=== PATIENT | female | born 1965 | race Caucasian/White ===

== ENCOUNTER → 2017-07-23 | Outpatient (CLI) | payer MEDICARE, OTHER ==
[2017-07-23 12:37] LABS: HCT 39.7 % (34.0-46.0); HGB 13.2 gm/dL (11.4-16.0); MCH 30.5 pg (25.0-35.0); MCHC 33.1 g/dL (31.0-37.0); Mean Platelet Volume 7.4; Platelet Count 231 k/uL (150-450); RBC 4.32 m/uL (3.80-5.40); RDW 13.5 % (11.5-15.5); WBC 10.8 k/uL (3.8-10.6)
[2017-07-23 13:04] LABS: ALT 46 U/L (9-52); AST 35 U/L (14-36); Albumin 4.4 g/dL (3.5-5.0); Alkaline Phosphatase 79 U/L (38-126); Anion Gap 14 mmol/L; Blood Urea Nitrogen 18 mg/dL (7-17); Calcium 10.3 mg/dL (8.4-10.2); Carbon Dioxide 25 mmol/L (22-30); Chloride 98 mmol/L (98-107); Glucose 154 mg/dL (74-99); Potassium 4.6 mmol/L (3.5-5.1); Sodium 137 mmol/L (137-145); Total Bilirubin 0.2 mg/dL (0.2-1.3); Total Protein 7.5 g/dL (6.3-8.2)
[2017-07-24 00:38] LABS: Hemoglobin A1C 8.2 % (4.0-6.0)
[2017-07-24 12:07] LABS: T4/T8 Ratio (CD4:CD8) 1.6 (1.0-3.7)
[2017-07-24 15:15] LABS: HIV-1 RNA Not detected (Not detected); HIV-1 RNA, Quant <40 Copies/mL (<40)
== END | disposition home or self-care (01) ==
LOC: LABWHC1 12:04
PROVIDERS: ATTEND Physician Assistant
DX: E11.9 Type 2 diabetes mellitus without complications (principal); R22.0 Localized swelling, mass and lump, head; F41.9 Anxiety disorder, unspecified; K72.90 Hepatic failure, unspecified without coma; Z21 Asymptomatic human immunodeficiency virus [HIV] infection status
CPT/HCPCS: 36415; 80053; 82140; 82533; 83036; 85027; 86360; 87536

== ENCOUNTER → 2018-05-13 | Outpatient (CLI) | payer MEDICARE, OTHER ==
[2018-05-13 16:01] LABS: Albumin 4.6 g/dL (3.5-5.0); Calcium 10.4 mg/dL (8.4-10.2); Potassium 4.5 mmol/L (3.5-5.1); Total Bilirubin 0.3 mg/dL (0.2-1.3); Total Protein 7.8 g/dL (6.3-8.2)
[2018-05-15 14:56] LABS: HIV-1 RNA Not detected (Not detected); HIV-1 RNA, Quant <40 Copies/mL (<40)
--- NOTE | 2018-05-18 12:08 | MM ---
Reason for exam: screening (asymptomatic). History: Patient is postmenopausal. Family history of breast cancer in mother at age 69 and breast cancer in grandmother at age 70. Physical Findings: A clinical breast exam by your physician is recommended on an annual basis and results should be correlated with mammographic findings. MG 3D Screening Mammo W/Cad Bilateral CC and MLO view(s) were taken. No prior studies available for comparison. The breast tissue is heterogeneously dense. This may lower the sensitivity of mammography. Finding: There are typically benign vascular calcifications in both breasts. ASSESSMENT: Benign, BI-RAD 2 RECOMMENDATION: Routine screening mammogram of both breasts in 1 year.
== END | disposition home or self-care (01) ==
LOC: RADMAMWWP 15:14
PROVIDERS: ATTEND Physician Assistant
DX: Z12.31 Encounter for screening mammogram for malignant neoplasm of breast (principal); G62.9 Polyneuropathy, unspecified; B20 Human immunodeficiency virus [HIV] disease; Z86.19 Personal history of other infectious and parasitic diseases
CPT/HCPCS: 36415; 77063; 77067; 80053; 82140; 82607; 86360; 87536

== ENCOUNTER → 2018-09-30 | Outpatient (CLI) | payer MEDICARE, OTHER ==
[2018-09-30 14:48] LABS: HCT 49.9 % (34.0-46.0); HGB 16.8 gm/dL (11.4-16.0); MCH 31.8 pg (25.0-35.0); MCHC 33.8 g/dL (31.0-37.0); MCV 94.3 fL (80.0-100.0); Mean Platelet Volume 7.1; Platelet Count 208 k/uL (150-450); RBC 5.29 m/uL (3.80-5.40); RDW 13.2 % (11.5-15.5); WBC 10.3 k/uL (3.8-10.6)
[2018-09-30 20:14] LABS: Albumin 5.1 g/dL (3.80-4.90); Albumin/Globulin Ratio 2.43 (1.60-3.17); Anion Gap 11.1 mmol/L (4.00-12.00); Calcium 10.6 mg/dL (8.7-10.3); Carbon Dioxide 29.9 mmol/L (21.6-31.8); Globulin 2.1 g/dL (1.6-3.3); LDL Cholesterol,Calculated 150.8 mg/dL (0.0-131.0); Potassium 4.8 mmol/L (3.5-5.5); Total Bilirubin 0.3 mg/dL (0.2-1.2); Total Protein 7.2 g/dL (6.2-8.2); VLDL Calculation 67.2 mg/dL (5.00-40.00)
[2018-09-30 21:11] LABS: Hemoglobin A1C 8.8 % (4.0-6.0)
[2018-10-01 12:39] LABS: T4/T8 Ratio (CD4:CD8) 2.1 (1.0-3.7)
[2018-10-01 13:27] LABS: HIV-1 RNA Not detected (Not detected); HIV-1 RNA, Quant <40 Copies/mL (<40)
== END | disposition home or self-care (01) ==
LOC: LABWHC1 13:56
PROVIDERS: ATTEND Physician Assistant
DX: E11.9 Type 2 diabetes mellitus without complications (principal); B20 Human immunodeficiency virus [HIV] disease; B19.20 Unspecified viral hepatitis C without hepatic coma
CPT/HCPCS: 36415; 80053; 80061; 82140; 83036; 85027; 86360; 87536

== ENCOUNTER → 2020-06-05 | Outpatient (CLI) | payer MEDICARE, OTHER ==
--- NOTE | 2020-06-05 08:50 | CT ---
EXAMINATION TYPE: CT brain wo con DATE OF EXAM: 06/05/2020 HISTORY: Swelling right temporal region since this summer. Headache, dizziness, double vision, and me geraldine changes. CT DLP: 1054.2 mGycm. Automated Exposure Control for Dose Reduction was Utilized. TECHNIQUE: CT scan of the head is performed without contrast. COMPARISON: None. FINDINGS: There is no acute intracranial hemorrhage or midline shift identified. Ventricles and sul ci within normal limits in size for patient's age. Dennison-white matter differentiation fairly well main tained. The globes are intact and the visualized sinuses are clear. Hyperostosis frontalis is seen. Mastoid air cells show no suspicious opacification bilaterally. No obvious suspicious subcutaneous m ass or fluid collection noted. IMPRESSION: No acute intracranial hemorrhage or midline shift. Fairly unremarkable study.
== END | disposition home or self-care (01) ==
LOC: RADCTMAIN 07:46
PROVIDERS: ATTEND Family Medicine
DX: G52.9 Cranial nerve disorder, unspecified (principal); R51.9 Headache, unspecified
CPT/HCPCS: 70450; 82140

== ENCOUNTER → 2020-12-05 | Outpatient (CLI) | payer MEDICARE, OTHER ==
[2020-12-06 00:40] LABS: HIV 2 AB Non-Reactive (Non-Reactive); HIV AB P24 REACTIVE (Non-Reactive); HIV P24 AG Non-Reactive (Non-Reactive)
[2020-12-06 10:59] LABS: T4/T8 Ratio (CD4:CD8) 1.7 (1.0-3.7)
[2020-12-11 07:45] LABS: HIV1D REACTIVE
[2020-12-11 07:46] LABS: HIV2D NONREAC
== END | disposition home or self-care (01) ==
LOC: LABWHC1 07:00
PROVIDERS: ATTEND Nurse Practitioner Family
DX: B20 Human immunodeficiency virus [HIV] disease (principal)
CPT/HCPCS: 36415; 82140; 86360; 87389; 87390

== ENCOUNTER 2021-10-26 23:17 | Emergency (ER) | payer MEDICARE, OTHER ==
[2021-10-26 23:27] VITALS: BP 135/69; PULSE 103; RESP 20; TEMP 98.1
--- NOTE | 2021-10-26 23:56 | XR ---
EXAMINATION TYPE: XR knee complete LT DATE OF EXAM: 10/26/2021 COMPARISON: NONE HISTORY: Knee pain TECHNIQUE: 3 views FINDINGS: There is narrowing of the medial joint space. There is spurring of the medial femoral and t ibial condyles. Exam limited by overlying artifacts. No sign of joint effusion. Patella is intact. IMPRESSION: Osteoarthritis in the medial joint space. No fracture. Limited exam
== END 2021-10-27 01:08 | disposition left against medical advice (07) ==
LOC: EC 23:17
DX: Z53.21 Procedure and treatment not carried out due to patient leaving prior to being seen by health care provider (principal)
CPT/HCPCS: 99499

== ENCOUNTER 2022-04-18 06:47 | Observation (INO) | payer MEDICARE, OTHER ==
--- NOTE | 2022-04-18 07:07 | ED ---
Chest Pain HPI - General Chief Complaint: Chest Pain Stated Complaint: Chest Pain Time Seen by Provider: 04/18/22 06:48 Source: patient, EMS Mode of arrival: EMS Limitations: no limitations - History of Present Illness Initial Comments: 56-year-old female presents emergency Department with chief complaint chest pain. Patient states started approximately an hour ago. Patient states that it's burning across her chest. Patient did receive aspirin and 3 nitro states did help some of her chest discomfort. Patient denies any prior cardiac stent she states she's had prior cardiac No acute findings. Patient does not that she abuses alcohol, as a history of drug abuse. Patient states she does not have a current primary care physician because of this. Patient states she has mild shortness of breath no abdominal complaints denies any vomiting denies any recent URI symptoms. - Related Data Allergies Allergy/AdvReac Type Severity Reaction Status Date / Time propranolol [From Inderal LA] Allergy Anaphylaxis Verified 10/26/21 23:27 Review of Systems ROS Statement: Those systems with pertinent positive or pertinent negative responses have been documented in the HPI. ROS Other: All systems not noted in ROS Statement are negative. EKG Findings - EKG Comments: EKG Findings:: EKG performed at 6:43 sinus rhythm with first-degree AV block, rate of 96 KS 210 QRS 109 QTC is QTC 366 11/24/2018 there is inverted T-wave in V2, STelevationordepressionnopriorEKG. Past Medical History Past Medical History: Chest Pain / Angina, COPD, Diabetes Mellitus, Hypertension Additional Past Medical History / Comment(s): HEP B, HIV, History of Any Multi-Drug Resistant Organisms: None Reported Past Surgical History: Hernia Repair Past Psychological History: Bipolar Smoking Status: Current every day smoker Past Alcohol Use History: Abuse, Daily Past Drug Use History: Marijuana General Exam Limitations: no limitations General appearance: alert, in no apparent distress Head exam: Present: atraumatic, normocephalic, normal inspection Eye exam: Present: normal appearance, PERRL, EOMI. Absent: scleral icterus, conjunctival injection, periorbital swelling ENT exam: Present: normal exam, normal oropharynx, mucous membranes moist Neck exam: Present: normal inspection. Absent: tenderness, meningismus, lymphadenopathy Respiratory exam: Present: normal lung sounds bilaterally. Absent: respiratory distress, wheezes, rales, rhonchi, stridor Cardiovascular Exam: Present: regular rate, normal rhythm, normal heart sounds. Absent: systolic murmur, diastolic murmur, rubs, gallop, clicks GI/Abdominal exam: Present: soft, normal bowel sounds. Absent: distended, tenderness, guarding, rebound, rigid Course Vital Signs 04/18/22 04/18/22 06:48 07:28 Temperature 98.1 F Pulse Rate 95 92 Respiratory 16 20 Rate Blood Pressure 148/60 156/80 O2 Sat by Pulse 95 93 L Oximetry Chest Pain MDM - [facility] 56-year-old female presented for chest pain. Patient initial workup is negative. Patient did have relief of her chest pain after nitro. 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
[2022-04-18 07:13] LABS: Anisocytosis Slight; Basophils # (A) 0.1 k/uL (0-0.2); Basophils % (A) 1 %; Eosinophils # (A) 0.1 k/uL (0-0.7); Eosinophils % (A) 1 %; HGB 14.9 gm/dL (11.4-16.0); Lymphocytes # (A) 3.2 k/uL (1.0-4.8); Lymphocytes % (A) 27 %; MCH 28.5 pg (25.0-35.0); MCHC 33.1 g/dL (31.0-37.0); MCV 86.2 fL (80.0-100.0); Mean Platelet Volume 7.9; Monocytes # (A) 0.5 k/uL (0-1.0); Monocytes % (A) 5 %; Neutrophils # (A) 7.5 k/uL (1.3-7.7); Neutrophils % (A) 64 %; Platelet Count 234 k/uL (150-450); RBC 5.22 m/uL (3.80-5.40); RDW 16.3 % (11.5-15.5); WBC 11.8 k/uL (3.8-10.6)
[2022-04-18 07:26] LABS: INR 0.9 (<1.2); Partial Thromboplastin Time 23.5 sec (22.0-30.0); Prothrombin Time 10.3 sec (9.0-12.0)
--- NOTE | 2022-04-18 07:34 | XR ---
EXAMINATION TYPE: XR chest 2V DATE OF EXAM: 04/18/2022 COMPARISON: None HISTORY: 56-year-old female with chest pain TECHNIQUE: PA and lateral views FINDINGS: Heart mildly enlarged. Mild hyperinflation. Mild interstitial prominence of the chronic appearance. S ome strandy atelectasis in lower lungs. No consolidation or pleural effusion seen. IMPRESSION: Mild cardiomegaly. Hyperinflation may relate to depth of inspiration or underlying emphysema. Clinica lly correlate. Some strandy lower lung atelectasis. Otherwise, no definite acute process.
[2022-04-18 07:36] LABS: ALT 22 U/L (4-34); AST 27 U/L (14-36); African American GFR (CKD) >90 (>60 ml/min/1.73 sqM); Alcohol <10 mg/dL; Alkaline Phosphatase 68 U/L (38-126); Anion Gap 11 mmol/L; Blood Urea Nitrogen 15 mg/dL (7-17); Calcium 9.1 mg/dL (8.4-10.2); Carbon Dioxide 26 mmol/L (22-30); Chloride 95 mmol/L (98-107); Glucose 170 mg/dL (74-99); Lipase 196 U/L (23-300); Magnesium 1.7 mg/dL (1.6-2.3); Non-African American GFR(CKD) >90 (>60 ml/min/1.73 sqM); Sodium 132 mmol/L (137-145); Total Bilirubin 0.5 mg/dL (0.2-1.3); Total Protein 6.4 g/dL (6.3-8.2)
[2022-04-18 07:56] LABS: Potassium 4.3 mmol/L (3.5-5.1)
[2022-04-18] MEDS ORDERED: NALOXONE 0.4 MG/ML 1 ML VIAL IV PRN (08:16)
[2022-04-18] MEDS ORDERED: NITROGLYCERIN SL TABS 0.4 MG TAB SUBLINGUAL PRN (08:24)
--- NOTE | 2022-04-18 10:23 | P.CRDCN ---
History of Present Illness History of present illness: HISTORY OF PRESENT ILLNESS: This is a 56 year old female with a past medical history significant for COPD, diabetes, hepatitis B, HIV, bipolar disorder, and nicotine dependence. Patient does not follow with a cst. We have been asked to see the patient in co nsultation for chest pain. Patient examined at the bedside. Patient reports she had a headache so she took Imitrex. She states that about 45 minutes after she developed chest pain. She states this has happened two other times when she took Imitrex. She currently denies chest pain or pressure. Denies SOB. Vital signs are stable. * EKG reveals sinus mechanism with incomplete right bundle branch block. * Chest xray mild cardiomegaly. Hyperinflation may relate to the depth of inspiration or underlying emphysema. Some strandy lower lung atelectasis. * Laboratory data: WBC 11.8. Hemoglobin 14.9. Platelet count 234. Sodium 132. Potassium 4.3. BUN 15. Creatinine 0.54. Troponin negative 1. ProBNP 72. Serum alcohol less than 10. * Current home cardiac medications include atorvastatin 20 mg daily, Cardizem 120 mg daily, losartan 25 mg daily REVIEW OF SYSTEMS: At the time of my exam: CONSTITUTIONAL: Denies fever or chills. HEENT: Denies blurred vision, vision changes, or eye pain. Denies hemoptysis CARDIOVASCULAR: Denies chest pain. Denies orthopnea. Denies PND. Denies palpitations RESPIRATORY: Denies shortness of breath. GASTROINTESTINAL: Denies abdominal pain. Denies nausea or vomiting. HEMATOLOGIC: Denies bleeding disorders. GENITOURINARY: Denies any blood in urine. SKIN: Denies pruitis. Denies rash. PHYSICAL EXAM: VITAL SIGNS: Reviewed. GENERAL: Well-developed in no acute distress. HEENT: Head is normocephalic. Pupils are equal, round. Sclerae anicteric. Mucous membranes of the mouth are moist. Neck supple. No JVD or thyromegaly LUNGS: Respirations even and unlabored. Lungs with rhonchi and crackles at the bases HEART: Regular rate and rhythm. S1 and S2 heard. ABDOMEN: Soft. Nondistended. Nontender. EXTREMITIES: Normal range of motion. No clubbing or cyanosis. Peripheral pulses intact. No lower extremity edema NEUROLOGIC: Awake and alert. Oriented x 3. ASSESSMENT: Chest pain, atypical, troponin negative 1 Hypertension Hyperlipidemia Diabetes COPD Hepatitis B HIV Bipolar disorder History of alcohol abuse Nicotine dependence PLAN: Obtain 2-D echo to assess cardiac structure and function Trend troponins Resume home cardiac medications Further recommendations pending patient's course Nurse practitioner note has been reviewed by physician. Signing provider agrees with the documented findings, assessment, and plan of care. Past Medical History Past Medical History: Chest Pain / Angina, COPD, Diabetes Mellitus, Hypertension Additional Past Medical History / Comment(s): HEP B, HIV, History of Any Multi-Drug Resistant Organisms: None Reported Past Surgical History: Hernia Repair Past Psychological History: Bipolar Smoking Status: Current every day smoker Past Alcohol Use History: Abuse, Daily Past Drug Use History: Marijuana Medications and Allergies Home Medications Medication Instructions Recorded Confirmed Type Acamprosate Calcium [Campral] 333 mg PO TID 04/18/22 04/18/22 History Albuterol Sulfate [Albuterol 2 puff PO RT-Q4H PRN 04/18/22 04/18/22 History Sulfate Hfa] Amoxicillin/Potassium Clav 1 tab PO BID 04/18/22 04/18/22 History [Amox-Clav 875-125 mg Tablet] Atorvastatin Calcium 20 mg PO DAILY 04/18/22 04/18/22 History Canagliflozin [Invokana] 100 mg PO DAILY 04/18/22 04/18/22 History Emtricitabine/Tenofov Alafenam 1 tab PO DAILY 04/18/22 04/18/22 History [Descovy 200-25 mg Tablet] Fluticasone/Umeclidin/Vilanter 1 puff INHALATION RT-DAILY 04/18/22 04/18/22 History [Trelegy Ellipta 100-62.5-25] Fremanezumab-Vfrm [Ajovy Syringe] 225 mg SQ Q90D 04/18/22 04/18/22 History Ipratropium-Albuterol Nebulize 3 ml INHALATION RT-TID PRN 04/18/22 04/18/22 History [Duoneb 0.5 mg-3 mg/3 ml Soln] Loratadine [Claritin] 10 mg PO DAILY 04/18/22 04/18/22 History Losartan [Cozaar] 25 mg PO DAILY 04/18/22 04/18/22 History Multivitamins, Thera [Multivitamin 1 tab PO DAILY 04/18/22 04/18/22 History (formulary)] Naproxen Sodium 550 mg PO BID PRN 04/18/22 04/18/22 History Nicotine [Nicotrol] 1 dose INHALATION DIRECTED 04/18/22 04/18/22 History Nystatin 100,000 Unit/gm Powd 1 applic TOPICAL BID 04/18/22 04/18/22 History [Mycostatin Powder] Pantoprazole [Protonix] 40 mg PO DAILY 04/18/22 04/18/22 History Raltegravir Potassium [Isentress] 800 mg PO HS 04/18/22 04/18/22 History SUMAtriptan succinate [Imitrex] 50 - 100 mg PO TID PRN 04/18/22 04/18/22 History Ubrogepant [Ubrelvy] 100 mg PO BID PRN 04/18/22 04/18/22 History busPIRone HCL [Buspar] 30 mg PO BID 04/18/22 04/18/22 History clomiPRAMINE HCL 75 mg PO QAM 04/18/22 04/18/22 History clomiPRAMINE HCL 150 mg PO HS 04/18/22 04/18/22 History dilTIAZem HCL [dilTIAZem HCL 24Hr 120 mg PO DAILY 04/18/22 04/18/22 History ER (CD)] glipiZIDE [Glucotrol] 10 mg PO BID 04/18/22 04/18/22 History lamoTRIgine [lamoTRIgine ER] 300 mg PO HS 04/18/22 04/18/22 History metFORMIN HCL ER [Glucophage XR] 1,000 mg PO DAILY 04/18/22 04/18/22 History methylPREDNISolone Dose Pack See Taper PO DIRECTED 04/18/22 04/18/22 History [Medrol Dose Pack] sitaGLIPtin [Januvia] 100 mg PO DAILY 04/18/22 04/18/22 History tiZANidine [Zanaflex] 2 mg PO BID PRN 04/18/22 04/18/22 History valACYclovir HCL [Valacyclovir] 1,000 mg PO BID 04/18/22 04/18/22 History ziprasidone HCL [Geodon] 80 mg PO BID 04/18/22 04/18/22 History Allergies Allergy/AdvReac Type Severity Reaction Status Date / Time propranolol [From Inderal LA] Allergy Anaphylaxis Verified 04/18/22 09:29 Physical Exam Vitals: Vital Signs Temp Pulse Resp BP Pulse Ox 04/18/22 07:28 92 20 156/80 93 L 04/18/22 06:48 98.1 F 95 16 148/60 95 Intake and Output 04/17/22 04/18/22 04/18/22 22:59 06:59 14:59 Other: Weight 72.575 kg Results 04/18/22 06:53 04/18/22 06:53 Cardiac Enzymes 04/18/22 04/18/22 Range/Units 06:53 06:53 AST 27 (14-36) U/L Troponin I <0.012 (0.000-0.034) ng/mL Coagulation 04/18/22 Range/Units 06:53 PT 10.3 (9.0-12.0) sec APTT 23.5 (22.0-30.0) sec CBC 04/18/22 Range/Units 06:53 WBC 11.8 H (3.8-10.6) k/uL RBC 5.22 (3.80-5.40) m/uL Hgb 14.9 (11.4-16.0) gm/dL Hct 45.0 (34.0-46.0) % Plt Count 234 (150-450) k/uL Comprehensive Metabolic Panel 04/18/22 Range/Units 06:53 Sodium 132 L (137-145) mmol/L Potassium 4.3 (3.5-5.1) mmol/L Chloride 95 L (98-107) mmol/L Carbon Dioxide 26 (22-30) mmol/L BUN 15 (7-17) mg/dL Creatinine 0.54 (0.52-1.04) mg/dL Glucose 170 H (74-99) mg/dL Calcium 9.1 (8.4-10.2) mg/dL AST 27 (14-36) U/L ALT 22 (4-34) U/L Alkaline Phosphatase 68 (38-126) U/L Total Protein 6.4 (6.3-8.2) g/dL Albumin 4.0 (3.5-5.0) g/dL Current Medications Generic Name Dose Route Start Last Admin Trade Name Freq PRN Reason Stop Dose Admin Aspirin 325 mg 04/19/22 09:00 Aspirin 325 Mg Tab PO DAILY JOCELIN Naloxone HCl 0.2 mg 04/18/22 08:16 Naloxone 0.4 Mg/Ml 1 Ml Vial IV Q2M PRN Opioid Reversal Nitroglycerin 0.4 mg 04/18/22 08:24 Nitroglycerin Sl Tabs 0.4 Mg Tab SUBLINGUAL Q5M PRN Chest Pain Intake and Output 04/17/22 04/18/22 04/18/22 22:59 06:59 14:59 Other: Weight 72.575 kg 04/18/22 06:53 04/18/22 06:53
[2022-04-18] MEDS ORDERED: HEPARIN SODIUM 1,000 UN/ML (10ML VL) IV ONE (10:58)
[2022-04-18] MEDS ORDERED: HEPARIN SODIUM 1,000 UN/ML (10ML VL) IV PRN (10:58)
[2022-04-18] MEDS: HEPARIN SOD,PORK IN 0.45% NACL 25,000 UNIT in 0.45% NACL 1 250ML.BAG IV SCH ×2 (11:14→13:27)
[2022-04-18 11:53] LABS: Anisocytosis Slight; Basophils % (A) 0 %; Eosinophils # (A) 0.2 k/uL (0-0.7); Eosinophils % (A) 2 %; HCT 45.2 % (34.0-46.0); HGB 14.7 gm/dL (11.4-16.0); Hypochromasia Moderate; Lymphocytes # (A) 3.2 k/uL (1.0-4.8); Lymphocytes % (A) 29 %; MCH 28.9 pg (25.0-35.0); MCHC 32.5 g/dL (31.0-37.0); MCV 89.1 fL (80.0-100.0); Mean Platelet Volume 8.3; Monocytes # (A) 0.4 k/uL (0-1.0); Monocytes % (A) 4 %; Neutrophils # (A) 6.7 k/uL (1.3-7.7); Neutrophils % (A) 61 %; Platelet Count 216 k/uL (150-450); RBC 5.07 m/uL (3.80-5.40); RDW 16.7 % (11.5-15.5)
[2022-04-18 12:14] LABS: Prothrombin Time 11.3 sec (9.0-12.0)
[2022-04-18 12:23] LABS: Partial Thromboplastin Time 105.8 sec (22.0-30.0)
[2022-04-18] MEDS ORDERED: IPRATROPIUM-ALBUTEROL 3 ML NEB INHALATION PRN (16:38)
--- NOTE | 2022-04-18 17:20 | P.HPIM ---
History of Present Illness H&P Date: 04/18/22 Patient is a 56-year-old female with PMH of COPD, diabetes mellitus, hypertension, hepatitis B, HIV, bipolar disorder, migraines that presents the ED for chest pain. Patient reports chest pain that started early this morning. Patient was awake when the chest pain started. She had just taken Imitrex for migraine attack. He reports her pain to be midsternal radiating to both of her arms and jaw. She describes the chest pain to be burning in nature. Her symptoms were alleviated with administration of nitroglycerin. There is aggravating factors. She reports a history of smoking 1 pack of cigarettes daily. She denies any current illicit drug use. She reports social drinking. Her symptoms were concerning which prompted her to come to the ED. She denies any lower extremity edema, nausea or vomiting, fever or chills, diaphoresis, shortness of breath, palpitations, changes in urination or bowel habits. No changes in appetite or weight. She denies any dizziness, numbness/weakness/t ingling of the extremities. In the she is requiring 3 L NC to maintain oxygen saturation greater than 92%. Vital signs were otherwise stable with pulse in the 90s and SBP as high as 156. Initial troponin was less than 0.012 followed by 0.079, 0.083. EKG showed sinus rhythm with incomplete right bundle branch block. CBC showed leukocytosis of 11.8. CMP showed sodium 132, chloride of 95, glucose 170. Serum alcohol negative. BNP 72. CXR showed cardiometaly, emphysema and atelectasis. Patient is admitted for chest pain, rule out acute coronary syndrome with Cardiology on consultation. General: non toxic, no distress, appears at stated age Derm: warm, dry Head: atraumatic, normocephalic, symmetric Eyes: EOMI, no lid lag, anicteric sclera Mouth: no lip lesion, mucus membranes moist Cardiovascular: S1S2 reg, no murmur, positive posterior tibial pulse bilateral Lungs: CTA bilateral, no rhonchi, no rales , no accessory muscle use Abdominal: soft, nontender to palpation, no guarding, no appreciable organomegaly Ext: no gross muscle atrophy, no edema, no contractures Neuro: CN II-XI grossly intact, no focal neuro deficits Psych: Alert, oriented, appropriate affect #Non-ST elevation HI Troponins uptrending. Patient started on heparin drip. Continue aspirin and Lipitor. Echocardiogram ordered. Possible cardiac cath tomorrow. Cardiology on board. #Hypochloremic hyponatremia Likely due to dehydration. Patient encouraged hydration by mouth. #Diabetes mellitus with hyperglycemia Low-dose insulin sliding scale along with Accu-Cheks before meals at bedtime and hypoglycemic precautions. #COPD, stable DuoNeb as needed for shortness of breath and wheezing. #Hypertension Restart Losartan and Cardizem. Monitor vitals, adjust medication if necessary. #Hepatitis B #HIV Restart raltegravir, Descovy, #Bipolar disorder Restart Latuda and Lamictal. DVT prophylaxis: [Heparin drip] Discussed with: [Patient] Anticipated discharge: [1-2 days] Anticipated discharge place: [Home] A total of [35] minutes was spent on the care of this complex patient more than 50% of the time was spent in counseling and care coordination. Patient names her sister decision maker if she can't make decisions for soft. Patient would like to be full code. Past Medical History Past Medical History: Chest Pain / Angina, COPD, Diabetes Mellitus, Hypertension Additional Past Medical History / Comment(s): HEP B, HIV, History of Any Multi-Drug Resistant Organisms: None Reported Past Surgical History: Hernia Repair Past Psychological History: Bipolar Smoking Status: Current every day smoker Past Alcohol Use History: Abuse, Daily Past Drug Use History: Marijuana Medications and Allergies Home Medications Medication Instructions Recorded Confirmed Type Acamprosate Calcium [Campral] 333 mg PO TID 04/18/22 04/18/22 History Albuterol Sulfate [Albuterol 2 puff PO RT-Q4H PRN 04/18/22 04/18/22 History Sulfate Hfa] Amoxicillin/Potassium Clav 1 tab PO BID 04/18/22 04/18/22 History [Amox-Clav 875-125 mg Tablet] Atorvastatin Calcium 20 mg PO DAILY 04/18/22 04/18/22 History Canagliflozin [Invokana] 100 mg PO DAILY 04/18/22 04/18/22 History Emtricitabine/Tenofov Alafenam 1 tab PO DAILY 04/18/22 04/18/22 History [Descovy 200-25 mg Tablet] Fluticasone/Umeclidin/Vilanter 1 puff INHALATION RT-DAILY 04/18/22 04/18/22 History [Trelegy Ellipta 100-62.5-25] Fremanezumab-Vfrm [Ajovy Syringe] 225 mg SQ Q90D 04/18/22 04/18/22 History Ipratropium-Albuterol Nebulize 3 ml INHALATION RT-TID PRN 04/18/22 04/18/22 History [Duoneb 0.5 mg-3 mg/3 ml Soln] Loratadine [Claritin] 10 mg PO DAILY 04/18/22 04/18/22 History Losartan [Cozaar] 25 mg PO DAILY 04/18/22 04/18/22 History Multivitamins, Thera [Multivitamin 1 tab PO DAILY 04/18/22 04/18/22 History (formulary)] Naproxen Sodium 550 mg PO BID PRN 04/18/22 04/18/22 History Nicotine [Nicotrol] 1 dose INHALATION DIRECTED 04/18/22 04/18/22 History Nystatin 100,000 Unit/gm Powd 1 applic TOPICAL BID 04/18/22 04/18/22 History [Mycostatin Powder] Pantoprazole [Protonix] 40 mg PO DAILY 04/18/22 04/18/22 History Raltegravir Potassium [Isentress] 800 mg PO HS 04/18/22 04/18/22 History SUMAtriptan succinate [Imitrex] 50 - 100 mg PO TID PRN 04/18/22 04/18/22 History Ubrogepant [Ubrelvy] 100 mg PO BID PRN 04/18/22 04/18/22 History busPIRone HCL [Buspar] 30 mg PO BID 04/18/22 04/18/22 History clomiPRAMINE HCL 75 mg PO QAM 04/18/22 04/18/22 History clomiPRAMINE HCL 150 mg PO HS 04/18/22 04/18/22 History dilTIAZem HCL [dilTIAZem HCL 24Hr 120 mg PO DAILY 04/18/22 04/18/22 History ER (CD)] glipiZIDE [Glucotrol] 10 mg PO BID 04/18/22 04/18/22 History lamoTRIgine [lamoTRIgine ER] 300 mg PO HS 04/18/22 04/18/22 History metFORMIN HCL ER [Glucophage XR] 1,000 mg PO DAILY 04/18/22 04/18/22 History methylPREDNISolone Dose Pack See Taper PO DIRECTED 04/18/22 04/18/22 History [Medrol Dose Pack] sitaGLIPtin [Januvia] 100 mg PO DAILY 04/18/22 04/18/22 History tiZANidine [Zanaflex] 2 mg PO BID PRN 04/18/22 04/18/22 History valACYclovir HCL [Valacyclovir] 1,000 mg PO BID 04/18/22 04/18/22 History ziprasidone HCL [Geodon] 80 mg PO BID 04/18/22 04/18/22 History Allergies Allergy/AdvReac Type Severity Reaction Status Date / Time propranolol [From Inderal LA] Allergy Anaphylaxis Verified 04/18/22 09:29 Physical Exam Vitals: Vital Signs Temp Pulse Resp BP Pulse Ox 04/18/22 16:15 96 18 128/80 97 04/18/22 13:00 90 20 134/66 94 L 04/18/22 11:05 85 20 141/77 97 04/18/22 09:17 92 22 122/78 97 04/18/22 07:28 92 20 156/80 93 L 04/18/22 06:48 98.1 F 95 16 148/60 95 Intake and Output 04/18/22 04/18/22 04/18/22 06:59 14:59 22:59 Intake Total 19.305 Balance 19.305 Intake: Intake, IV Titration 19.305 Amount Heparin Sod,Pork in 0.45% 19.305 NaCl 25,000 unit In 0.45 % NaCl 1 250ml.bag @ 12 UNITS/KG/HR 8.709 mls/hr IV .Q24H [facility] Rx#: [id number] Other: Weight 72.575 kg Results CBC & Chem 7: 04/18/22 11:16 04/18/22 06:53 Labs: Abnormal Lab Results - Last 24 Hours (Table) 04/18/22 04/18/22 04/18/22 Range/Units 06:53 06:53 10:02 WBC 11.8 H (3.8-10.6) k/uL RDW 16.3 H (11.5-15.5) % APTT (22.0-30.0) sec Sodium 132 L (137-145) mmol/L Chloride 95 L (98-107) mmol/L Glucose 170 H (74-99) mg/dL Troponin I 0.079 H* (0.000-0.034) ng/mL 04/18/22 04/18/22 04/18/22 Range/Units 11:16 11:16 13:23 WBC 11.0 H (3.8-10.6) k/uL RDW 16.7 H (11.5-15.5) % APTT 105.8 H* (22.0-30.0) sec Sodium (137-145) mmol/L Chloride (98-107) mmol/L Glucose (74-99) mg/dL Troponin I 0.083 H* (0.000-0.034) ng/mL
[2022-04-18] MEDS: INSULIN ASPART (NovoLOG) 100 UNIT/ML VIAL SQ SCH ×2 (17:41→20:43)
[2022-04-18 17:44] LABS: Glucose,Whole Blood 163 mg/dL (70-110)
[2022-04-18 20:03] LABS: Glucose,Whole Blood 130 mg/dL (70-110)
[2022-04-18] MEDS: busPIRone HCl 10 MG TAB PO SCH (20:10)
[2022-04-18] MEDS: lamoTRIgine 100 MG TAB PO SCH (20:10)
[2022-04-18] MEDS: ZIPRASIDONE 80 MG CAP PO SCH (20:43)
[2022-04-18] MEDS: valACYclovir HCL 1,000 MG TABLET PO SCH (20:43)
[2022-04-18] MEDS ORDERED: RALTEGRAVIR POTASSIUM 400 MG PO SCH (21:00)
--- NOTE | 2022-04-18 22:01 | CA ---
Transthoracic Echo Report Name: Genevieve Erickson Age: 56 Gender: F : 1965 Exam Date: 04/18/2022 10:48 Exam Location: [facility] Ht (in): 60 Wt (lb): 160 Ordering Physician: Britney Stanford MD Attending/Referring Phys: Produce Team Lead Chhaya Monroy RDCS Procedure CPT: Indications: CP Cardiac Hx: Technical Quality: Contrast 1: Total Dose (mL): Contrast 2: Total Dose (mL): MEASUREMENTS (Male / Female) Normal Values 2D ECHO LV Diastolic Diameter PLAX 4.1 cm 4.2 - 5.9 / 3.9 - 5.3 cm LV Systolic Diameter PLAX 2.9 cm IVS Diastolic Thickness 1.5 cm 0.6 - 1.0 / 0.6 - 0.9 cm LVPW Diastolic Thickness 1.5 cm 0.6 - 1.0 / 0.6 - 0.9 cm LV Relative Wall Thickness 0.7 RV Internal Dim ED PLAX 3.3 cm LA Systolic Diameter LX 3.6 cm 3.0 - 4.0 / 2.7 - 3.8 cm M-MODE Aortic Root Diameter MM 3.3 cm LA Systolic Diameter MM 3.6 cm LA Ao Ratio MM 1.1 MV E Point Septal Separation 0.3 cm AV Cusp Separation MM 1.9 cm DOPPLER MV Area PHT 3.2 cm??? Mitral E Point Velocity 51.5 cm/s Mitral A Point Velocity 75.0 cm/s Mitral E to A Ratio 0.7 MV Deceleration Time 239.9 ms FINDINGS Left Ventricle Left ventricular ejection fraction is estimated at 50-55 %. Mildly increased left ventricular wall thickness. Right Ventricle Normal right ventricular size and function. Right Atrium Normal right atrial size. Left Atrium Left atrial size at the upper limits of normal. Mitral Valve Structurally normal mitral valve. Mild mitral regurgitation. Aortic Valve Trileaflet aortic valve. Tricuspid Valve Structurally normal tricuspid valve. Mild tricuspid regurgitation. Pulmonic Valve Pulmonic valve not well visualized. Pericardium Echo free space anterior to the right ventricle likely represents a fat pad. Aorta Normal size aortic root and proximal ascending aorta. CONCLUSIONS Mild LVH with preserved systolic function Previewed by: Dr. Abe Segovia MD (Electronically Signed) Final Date: 18 April 2022 22:00
[2022-04-19] MEDS ORDERED: ACETAMINOPHEN TAB 325 MG TAB PO PRN (00:37)
[2022-04-19 02:08] LABS: Anisocytosis Slight; Basophils # (A) 0.1 k/uL (0-0.2); Basophils % (A) 1 %; Eosinophils # (A) 0.2 k/uL (0-0.7); Eosinophils % (A) 2 %; HCT 46.8 % (34.0-46.0); HGB 15.1 gm/dL (11.4-16.0); Hypochromasia Slight; Lymphocytes # (A) 3.4 k/uL (1.0-4.8); Lymphocytes % (A) 34 %; MCH 28.4 pg (25.0-35.0); MCHC 32.2 g/dL (31.0-37.0); MCV 88.2 fL (80.0-100.0); Mean Platelet Volume 7.9; Monocytes # (A) 0.4 k/uL (0-1.0); Monocytes % (A) 4 %; Neutrophils # (A) 5.6 k/uL (1.3-7.7); Neutrophils % (A) 57 %; Platelet Count 236 k/uL (150-450); RDW 16.5 % (11.5-15.5); WBC 9.8 k/uL (3.8-10.6)
[2022-04-19 02:21] LABS: INR 0.9 (<1.2); Prothrombin Time 10.4 sec (9.0-12.0)
[2022-04-19 06:04] LABS: Glucose,Whole Blood 126 mg/dL (70-110)
[2022-04-19] MEDS: INSULIN ASPART (NovoLOG) 100 UNIT/ML VIAL SQ SCH ×2 (06:04→12:10)
--- NOTE | 2022-04-19 08:12 | P.PN ---
Subjective Progress Note Date: 04/19/22 Principal diagnosis: Acute coronary syndrome The patient is a pleasant 56-year-old female patient with diabetes and hypertension and dyslipidemia and obesity presented to the hospital with a chest discomfort and ruled in for acute coronary event. Further investigation was advised including an echo which revealed normal left ventricular systolic function with no evidence of wall motion abnormalities. April 192021 The patient was seen this morning. She stated she had no more chest discomfort beside last night. Currently she is on heparin IV. She is also on aspirin and intermediate intensity statin and she is also on Cardizem at 120 mg by mouth daily. I advised the patient to undergo coronary angiogram because I am concerned about severe underlying coronary artery disease but the patient refused. Meanwhile we are going to increase the dose of atorvastatin from 40 mg by mouth daily at bedtime to 80 mg by mouth daily at bedtime, increase the dose of Cardizem to 180 mg daily because she is tachycardic, add Plavix to the current medical regimen, and DC heparin at this more than 48 hours. The patient continues to say "I want to go home" and "I don't want to have a heart catheterization Objective - Vital Signs Vital signs: Vital Signs Temp 98.2 F 04/19/22 04:00 Pulse 89 04/19/22 04:00 Resp 17 04/19/22 04:00 BP 152/83 04/19/22 04:00 Pulse Ox 98 04/19/22 07:34 FiO2 Intake & Output 04/18/22 04/19/22 04/19/22 18:59 06:59 18:59 Intake Total 19.305 101.389 0 Balance 19.305 101.389 0 Weight 72.575 kg Intake: Intake, IV Titration 19.305 101.389 Amount Heparin Sod,Pork in 0.45% 19.305 101.389 NaCl 25,000 unit In 0.45 % NaCl 1 250ml.bag @ 12 UNITS/KG/HR 8.709 mls/hr IV .Q24H JOCELIN Rx#: [id number] Oral 0 Other: # Voids 1 - Constitutional General appearance: Present: no acute distress - Respiratory Respiratory: bilateral: CTA - Cardiovascular Rhythm: regular Heart sounds: normal: S1, S2 - Labs CBC & Chem 7: 04/19/22 01:43 04/18/22 06:53 Labs: Abnormal Lab Results - Last 24 Hours (Table) 04/18/22 04/18/22 04/18/22 Range/Units 10:02 11:16 11:16 WBC 11.0 H (3.8-10.6) k/uL Hct (34.0-46.0) % RDW 16.7 H (11.5-15.5) % APTT 105.8 H* (22.0-30.0) sec POC Glucose (mg/dL) (70-110) mg/dL Troponin I 0.079 H* (0.000-0.034) ng/mL 04/18/22 04/18/22 04/18/22 Range/Units 13:23 17:37 20:01 WBC (3.8-10.6) k/uL Hct (34.0-46.0) % RDW (11.5-15.5) % APTT (22.0-30.0) sec POC Glucose (mg/dL) 163 H 130 H (70-110) mg/dL Troponin I 0.083 H* (0.000-0.034) ng/mL 04/19/22 04/19/22 04/19/22 Range/Units 01:43 01:43 06:03 WBC (3.8-10.6) k/uL Hct 46.8 H (34.0-46.0) % RDW 16.5 H (11.5-15.5) % APTT 38.4 H (22.0-30.0) sec POC Glucose (mg/dL) 126 H (70-110) mg/dL Troponin I (0.000-0.034) ng/mL Assessment and Plan Assessment: Assessment Acute coronary syndrome/acute non-ST elevation myocardial infarction Diabetes type 2 Hypertension Dyslipidemia Overweight Plan DC heparin if it is more than 48 hours Add Plavix to the current medical regimen to start the patient dual antiplatelet therapy Increase the dose of Lipitor to 80 mg by mouth daily at bedtime Increase the dose of Cardizem to 180 mg daily The patient wants to go home and she refused heart catheterization
[2022-04-19 08:59] VITALS: RESP 18
[2022-04-19] MEDS ORDERED: LOSARTAN 25 MG TAB PO SCH (09:00)
[2022-04-19] MEDS ORDERED: DILTIAZEM CD 120 MG CAP.ER.24H PO SCH (09:00)
[2022-04-19] MEDS ORDERED: ASPIRIN 81 MG PO SCH (09:00)
[2022-04-19] MEDS ORDERED: DILTIAZEM CD 180 MG CAP.ER.24H PO SCH (09:00)
[2022-04-19] MEDS ORDERED: PANTOPRAZOLE 40 MG TABLET PO SCH (09:00)
[2022-04-19] MEDS ORDERED: TENOFOVIR ALAFENAMIDE PO SCH (09:00)
[2022-04-19] MEDS ORDERED: ASPIRIN 325 MG TAB PO SCH (09:00)
[2022-04-19] MEDS ORDERED: EMTRICITABINE PO SCH (09:00)
[2022-04-19] MEDS ORDERED: ATORVASTATIN 80 MG TAB PO SCH (09:00)
[2022-04-19] MEDS ORDERED: ATORVASTATIN 20 MG TAB PO SCH (09:00)
[2022-04-19] MEDS ORDERED: ATORVASTATIN 40 MG TAB PO SCH (09:00)
[2022-04-19] MEDS ORDERED: LORATADINE 10 MG TAB PO SCH (09:00)
[2022-04-19] MEDS: ZIPRASIDONE 80 MG CAP PO SCH (09:30)
[2022-04-19] MEDS: valACYclovir HCL 1,000 MG TABLET PO SCH (09:30)
[2022-04-19] MEDS: busPIRone HCl 10 MG TAB PO SCH (09:57)
[2022-04-19] MEDS: lamoTRIgine 100 MG TAB PO SCH (09:57)
--- NOTE | 2022-04-19 11:44 | P.DS ---
Providers Date of admission: 04/18/22 08:16 Expected date of discharge: 04/19/22 Attending physician: Britney Stanford MD Consults: 04/18/22 08:21 Consult Physician Routine Consulting Provider: Cooper Cruz Consult Reason/Comments: CP Do you want consulting provider notified?: Yes Primary care physician: Stated None Hospital Course: Patient is a 56-year-old female with PMH of COPD, diabetes mellitus, hypertension, hepatitis B, HIV, bipolar disorder, migraines that presents the ED for chest pain. Patient reports chest pain that started early this morning. Patient was awake when the chest pain started. She had just taken Imitrex for migraine attack. He reports her pain to be midsternal radiating to both of her arms and jaw. She describes the chest pain to be burning in nature. Her symptoms were alleviated with administration of nitroglycerin. There is aggravating factors. She reports a history of smoking 1 pack of cigarettes daily. She denies any current illicit drug use. She reports social drinking. Her symptoms were concerning which prompted her to come to the ED. She denies any lower extremity edema, nausea or vomiting, fever or chills, diaphoresis, shortness of breath, palpitations, changes in urination or bowel habits. No changes in appetite or weight. She denies any dizziness, numbness/weakness/tingling of the extremities. In the she is requiring 3 L NC to maintain oxygen saturation greater than 92%. Vital signs were otherwise stable with pulse in the 90s and SBP as high as 156. Initial troponin was less than 0.012 followed by 0.079, 0.083. EKG showed sinus rhythm with incomplete right bundle branch block. CBC showed leukocytosis of 11.8. CMP showed sodium 132, chloride of 95, glucose 170. Serum alcohol negative. BNP 72. CXR showed cardiometaly, emphysema and atelectasis. Patient is admitted for chest pain, rule out acute coronary syndrome with Cardiology on consultation. Troponins were trended as less than 0.012, 0.079, 0.083. Patient was started on a heparin drip. Cardiology recommended cardiac catheterization, which patient refused. She also refused to stay an additional day for heparin infusion. She is discharged home on aspirin 81 mg by mouth daily, diltiazem 180 mg by mouth daily, Lipitor 80 mg by mouth daily, Plavix 75 mg by mouth daily and nitroglycerin as needed for chest pain. She is advised follow-up with her PCP within 1-2 days discharge. She is advised follow-up with cardiology within 1 week of discharge. She is advised come back to the ED for worsening chest ankle shortness breath, palpitations or lightheadedness. Discontinue Imitrex until follow up with Cardiology. Patient verbalized understanding of the plan. Pertinent studies include mild LVH and preserved systolic function. General: non toxic, no distress, appears at stated age Derm: warm, dry Head: atraumatic, normocephalic, symmetric Eyes: EOMI, no lid lag, anicteric sclera Mouth: no lip lesion, mucus membranes moist Cardiovascular: S1S2 reg, no murmur Lungs: CTA bilateral, no rhonchi, no rales , no accessory muscle use Ext: no gross muscle atrophy, no edema, no contractures Neuro: no focal neuro deficits Psych: Alert, oriented, appropriate affect Discharge diagnosis: #Non-ST elevation CA #Hypochloremic hyponatremia #Diabetes mellitus with hyperglycemia #COPD, stable #Hypertension #Hepatitis B #HIV #Bipolar disorder Patient Condition at Discharge: Fair Plan - Discharge Summary Discharge Rx Participant: No New Discharge Prescriptions: New Aspirin 81 mg PO DAILY #30 tab Diltiazem Cd [Cardizem CD] 180 mg PO DAILY #30 cap Atorvastatin [Lipitor] 80 mg PO DAILY #30 tab Clopidogrel [Plavix] 75 mg PO DAILY #30 tab Nitroglycerin Sl Tabs [Nitrostat] 0.4 mg SUBLINGUAL Q5M PRN #30 tab PRN Reason: Chest Pain Continue Amoxicillin/Potassium Clav [Amox-Clav 875-125 mg Tablet] 1 tab PO BID ziprasidone HCL [Geodon] 80 mg PO BID valACYclovir HCL [Valacyclovir] 1,000 mg PO BID Fluticasone/Umeclidin/Vilanter [Trelegy Ellipta 100-62.5-25] 1 puff INHALATION RT-DAILY tiZANidine [Zanaflex] 2 mg PO BID PRN PRN Reason: Muscle Spasm Pantoprazole [Protonix] 40 mg PO DAILY Nicotine [Nicotrol] 1 dose INHALATION DIRECTED Losartan [Cozaar] 25 mg PO DAILY Naproxen Sodium 550 mg PO BID PRN PRN Reason: Pain sitaGLIPtin [Januvia] 100 mg PO DAILY Ipratropium-Albuterol Nebulize [Duoneb 0.5 mg-3 mg/3 ml Soln] 3 ml INHALATION RT-TID PRN PRN Reason: Shortness Of Breath clomiPRAMINE HCL 75 mg PO QAM clomiPRAMINE HCL 150 mg PO HS Emtricitabine/Tenofov Alafenam [Descovy 200-25 mg Tablet] 1 tab PO DAILY busPIRone HCL [Buspar] 30 mg PO BID Albuterol Sulfate [Albuterol Sulfate Hfa] 2 puff PO RT-Q4H PRN PRN Reason: Shortness Of Breath Acamprosate Calcium [Campral] 333 mg PO TID methylPREDNISolone Dose Pack [Medrol Dose Pack] See Taper PO DIRECTED Multivitamins, Thera [Multivitamin (formulary)] 1 tab PO DAILY Ubrogepant [Ubrelvy] 100 mg PO BID PRN PRN Reason: Migraine Headache Nystatin 100,000 Unit/gm Powd [Mycostatin Powder] 1 applic TOPICAL BID Loratadine [Claritin] 10 mg PO DAILY metFORMIN HCL ER [Glucophage XR] 1,000 mg PO DAILY lamoTRIgine [lamoTRIgine ER] 300 mg PO HS Raltegravir Potassium [Isentress] 800 mg PO HS glipiZIDE [Glucotrol] 10 mg PO BID Canagliflozin [Invokana] 100 mg PO DAILY Fremanezumab-Vfrm [Ajovy Syringe] 225 mg SQ Q90D Discontinued SUMAtriptan succinate [Imitrex] 50 - 100 mg PO TID PRN PRN Reason: Headache dilTIAZem HCL [dilTIAZem HCL 24Hr ER (CD)] 120 mg PO DAILY Atorvastatin Calcium 20 mg PO DAILY Discharge Medication List Acamprosate Calcium [Campral] 333 mg PO TID 04/18/22 [History] Albuterol Sulfate [Albuterol Sulfate Hfa] 2 puff PO RT-Q4H PRN 04/18/22 [History] Amoxicillin/Potassium Clav [Amox-Clav 875-125 mg Tablet] 1 tab PO BID 04/18/22 [History] Canagliflozin [Invokana] 100 mg PO DAILY 04/18/22 [History] Emtricitabine/Tenofov Alafenam [Descovy 200-25 mg Tablet] 1 tab PO DAILY 04/18/22 [History] Fluticasone/Umeclidin/Vilanter [Trelegy Ellipta 100-62.5-25] 1 puff INHALATION RT-DAILY 04/18/22 [History] Fremanezumab-Vfrm [Ajovy Syringe] 225 mg SQ Q90D 04/18/22 [History] Ipratropium-Albuterol Nebulize [Duoneb 0.5 mg-3 mg/3 ml Soln] 3 ml INHALATION RT-TID PRN 04/18/22 [History] Loratadine [Claritin] 10 mg PO DAILY 04/18/22 [History] Losartan [Cozaar] 25 mg PO DAILY 04/18/22 [History] Multivitamins, Thera [Multivitamin (formulary)] 1 tab PO DAILY 04/18/22 [History] Naproxen Sodium 550 mg PO BID PRN 04/18/22 [History] Nicotine [Nicotrol] 1 dose INHALATION DIRECTED 04/18/22 [History] Nystatin 100,000 Unit/gm Powd [Mycostatin Powder] 1 applic TOPICAL BID 04/18/22 [History] Pantoprazole [Protonix] 40 mg PO DAILY 04/18/22 [History] Raltegravir Potassium [Isentress] 800 mg PO HS 04/18/22 [History] Ubrogepant [Ubrelvy] 100 mg PO BID PRN 04/18/22 [History] busPIRone HCL [Buspar] 30 mg PO BID 04/18/22 [History] clomiPRAMINE HCL 75 mg PO QAM 04/18/22 [History] clomiPRAMINE HCL 150 mg PO HS 04/18/22 [History] glipiZIDE [Glucotrol] 10 mg PO BID 04/18/22 [History] lamoTRIgine [lamoTRIgine ER] 300 mg PO HS 04/18/22 [History] metFORMIN HCL ER [Glucophage XR] 1,000 mg PO DAILY 04/18/22 [History] methylPREDNISolone Dose Pack [Medrol Dose Pack] See Taper PO DIRECTED 04/18/22 [History] sitaGLIPtin [Januvia] 100 mg PO DAILY 04/18/22 [History] tiZANidine [Zanaflex] 2 mg PO BID PRN 04/18/22 [History] valACYclovir HCL [Valacyclovir] 1,000 mg PO BID 04/18/22 [History] ziprasidone HCL [Geodon] 80 mg PO BID 04/18/22 [History] Aspirin 81 mg PO DAILY #30 tab 04/19/22 [Rx] Atorvastatin [Lipitor] 80 mg PO DAILY #30 tab 04/19/22 [Rx] Clopidogrel [Plavix] 75 mg PO DAILY #30 tab 04/19/22 [Rx] Diltiazem Cd [Cardizem CD] 180 mg PO DAILY #30 cap 04/19/22 [Rx] Nitroglycerin Sl Tabs [Nitrostat] 0.4 mg SUBLINGUAL Q5M PRN #30 tab 04/19/22 [Rx] Follow up Appointment(s)/Referral(s): Cooper Cruz MD [STAFF PHYSICIAN] - 1 Week None,Stated [Primary Care Provider] - 1-2 days Activity/Diet/Wound Care/Special Instructions: Diet: Cardiac FU PCP within 1-2 days of DC. FU with Cardiology within 1 week of DC. Come back to the ED for worsening chest pain, SOB, palpitations or lightheadedness. Discharge Disposition: HOME SELF-CARE
[2022-04-19 12:58] VITALS: BP 153/78; PULSE 101; TEMP 97.7
[2022-04-20] MEDS ORDERED: CLOPIDOGREL 75 MG TAB PO SCH (09:00)
== END 2022-04-19 14:18 | disposition home or self-care (01) ==
LOC: EC 06:47 → 6NMEDSUR 08:16 → 3SCARD 12:53
PROVIDERS: ADMIT Family Medicine; ATTEND Family Medicine
DX: I21.4 Non-ST elevation (NSTEMI) myocardial infarction (principal); E87.1 Hypo-osmolality and hyponatremia; E11.65 Type 2 diabetes mellitus with hyperglycemia; I44.0 Atrioventricular block, first degree; B19.10 Unspecified viral hepatitis B without hepatic coma; F31.9 Bipolar disorder, unspecified; F10.10 Alcohol abuse, uncomplicated; I11.9 Hypertensive heart disease without heart failure; F17.210 Nicotine dependence, cigarettes, uncomplicated; I45.10 Unspecified right bundle-branch block; E78.5 Hyperlipidemia, unspecified; J98.11 Atelectasis; F12.90 Cannabis use, unspecified, uncomplicated; I08.1 Rheumatic disorders of both mitral and tricuspid valves; Z21 Asymptomatic human immunodeficiency virus [HIV] infection status; Z88.8 Allergy status to other drugs, medicaments and biological substances; Z79.899 Other long term (current) drug therapy; Z79.84 Long term (current) use of oral hypoglycemic drugs; Z79.82 Long term (current) use of aspirin; Z79.02 Long term (current) use of antithrombotics/antiplatelets; Y90.0 Blood alcohol level of less than 20 mg/100 ml
CPT/HCPCS: 96365; 99285; 36415; 94760; 93306; 83880; 80053; 83690; 83735; 84484; 85025 ×2; 85610 ×2; 85730 ×2; 71046; G0378 ×3; G0480; J1644 ×2; 80320

== ENCOUNTER → 2022-04-27 | Emergency (ER) | payer MEDICARE, OTHER ==
--- NOTE | 2022-04-27 13:05 | XR ---
EXAMINATION TYPE: XR chest 2V DATE OF EXAM: 04/27/2022 11:25 AM COMPARISON: Chest radiographs from 04/24/2022 TECHNIQUE: XR chest 2V Frontal and lateral views of the chest. CLINICAL INDICATION: syncope, weakness FINDINGS: Lungs/Pleura: There is no evidence of pleural effusion, focal consolidation, or pneumothorax. Pulmonary vascularity: Unremarkable. Heart/mediastinum: Cardiomediastinal silhouette is enlarged and stable. Musculoskeletal: No acute osseous pathology. IMPRESSION: No acute cardiopulmonary disease/process.
[2022-04-27 16:53] LABS: Anisocytosis Slight; Basophils % (A) 0 %; Eosinophils # (A) 0.1 k/uL (0-0.7); Eosinophils % (A) 1 %; HCT 41.6 % (34.0-46.0); HGB 13.8 gm/dL (11.4-16.0); Lymphocytes # (A) 1.9 k/uL (1.0-4.8); Lymphocytes % (A) 23 %; MCH 28.7 pg (25.0-35.0); MCHC 33.1 g/dL (31.0-37.0); MCV 86.5 fL (80.0-100.0); Mean Platelet Volume 7.8; Monocytes # (A) 0.4 k/uL (0-1.0); Monocytes % (A) 4 %; Neutrophils # (A) 5.8 k/uL (1.3-7.7); Neutrophils % (A) 69 %; Platelet Count 244 k/uL (150-450); RBC 4.81 m/uL (3.80-5.40); RDW 16.4 % (11.5-15.5); WBC 8.3 k/uL (3.8-10.6)
[2022-04-27 17:01] LABS: ALT 23 U/L (4-34); AST 27 U/L (14-36); African American GFR (CKD) >90 (>60 ml/min/1.73 sqM); Albumin 4.3 g/dL (3.5-5.0); Alkaline Phosphatase 77 U/L (38-126); Anion Gap 12 mmol/L; Blood Urea Nitrogen 11 mg/dL (7-17); Calcium 9.3 mg/dL (8.4-10.2); Carbon Dioxide 26 mmol/L (22-30); Chloride 96 mmol/L (98-107); Glucose 131 mg/dL (74-99); Magnesium 1.5 mg/dL (1.6-2.3); Non-African American GFR(CKD) >90 (>60 ml/min/1.73 sqM); Potassium 4.6 mmol/L (3.5-5.1); Sodium 134 mmol/L (137-145); Total Bilirubin 0.5 mg/dL (0.2-1.3); Total Protein 6.8 g/dL (6.3-8.2)
== END ==
LOC: EC 08:08
DX: I10 Essential (primary) hypertension (principal)
CPT/HCPCS: 36415; 71046; 80053; 83735; 84484; 85025; 99284

== ENCOUNTER 2022-05-11 19:27 | Emergency (ER) | payer MEDICARE, OTHER ==
[2022-05-11 19:36] VITALS: RESP 18; TEMP 98.7
--- NOTE | 2022-05-11 21:15 | XR ---
EXAMINATION TYPE: XR chest 2V DATE OF EXAM: 05/11/2022 COMPARISON: 04/27/2022 HISTORY: Chest pain TECHNIQUE: FINDINGS: Heart and mediastinum are normal. Lungs are clear. Diaphragm is normal. Bony thorax appears normal. IMPRESSION: No active cardiopulmonary disease. Normal heart. No change.
[2022-05-11 21:25] LABS: Anisocytosis Slight; Basophils # (A) 0.1 k/uL (0-0.2); Basophils % (A) 1 %; Eosinophils # (A) 0.2 k/uL (0-0.7); Eosinophils % (A) 2 %; HCT 45.9 % (34.0-46.0); HGB 15.3 gm/dL (11.4-16.0); Lymphocytes # (A) 2.8 k/uL (1.0-4.8); Lymphocytes % (A) 27 %; MCH 28.7 pg (25.0-35.0); MCHC 33.2 g/dL (31.0-37.0); MCV 86.5 fL (80.0-100.0); Mean Platelet Volume 8.1; Monocytes # (A) 0.4 k/uL (0-1.0); Monocytes % (A) 4 %; Neutrophils # (A) 6.6 k/uL (1.3-7.7); Neutrophils % (A) 63 %; Platelet Count 261 k/uL (150-450); RBC 5.31 m/uL (3.80-5.40); RDW 16.3 % (11.5-15.5); WBC 10.5 k/uL (3.8-10.6)
[2022-05-11 21:40] LABS: ALT 25 U/L (4-34); AST 28 U/L (14-36); African American GFR (CKD) >90 (>60 ml/min/1.73 sqM); Albumin 4.5 g/dL (3.5-5.0); Alkaline Phosphatase 71 U/L (38-126); Anion Gap 8 mmol/L; Blood Urea Nitrogen 12 mg/dL (7-17); Calcium 9.7 mg/dL (8.4-10.2); Carbon Dioxide 28 mmol/L (22-30); Chloride 100 mmol/L (98-107); Glucose 78 mg/dL (74-99); Magnesium 1.7 mg/dL (1.6-2.3); Non-African American GFR(CKD) 90 (>60 ml/min/1.73 sqM); Potassium 4.6 mmol/L (3.5-5.1); Sodium 136 mmol/L (137-145); Total Bilirubin 0.2 mg/dL (0.2-1.3); Total Protein 7.2 g/dL (6.3-8.2)
[2022-05-11 21:45] LABS: INR 0.9 (<1.2); Partial Thromboplastin Time 24.9 sec (22.0-30.0); Prothrombin Time 9.8 sec (9.0-12.0)
--- NOTE | 2022-05-11 22:02 | ED ---
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 The patient stated that she had intermittent chest pain today that has been present over the last 2 days. The patient stated that she had continued discomfort in her chest today she came to the emergency department. The patient denied any radiation of this pain and denied any nausea or vomiting. The patient continued to remain stable and denied any nausea or vomiting currently. - Related Data Home Medications Medication Instructions Recorded Confirmed Acamprosate Calcium [Campral] 333 mg PO TID 04/18/22 04/24/22 Albuterol Sulfate [Albuterol 2 puff INHALATION RT-Q4H PRN 04/18/22 04/24/22 Sulfate Hfa] Canagliflozin [Invokana] 100 mg PO DAILY 04/18/22 04/24/22 Emtricitabine/Tenofov Alafenam 1 tab PO DAILY 04/18/22 04/24/22 [Descovy 200-25 mg Tablet] Fluticasone/Umeclidin/Vilanter 1 puff INHALATION RT-DAILY 04/18/22 04/24/22 [Trelegy Ellipta 100-62.5-25] Fremanezumab-Vfrm [Ajovy Syringe] 225 mg SQ Q90D 04/18/22 04/24/22 Ipratropium-Albuterol Nebulize 3 ml INHALATION RT-TID PRN 04/18/22 04/24/22 [Duoneb 0.5 mg-3 mg/3 ml Soln] Loratadine [Claritin] 10 mg PO DAILY 04/18/22 04/24/22 Losartan [Cozaar] 25 mg PO DAILY 04/18/22 04/24/22 Multivitamins, Thera [Multivitamin 1 tab PO DAILY 04/18/22 04/24/22 (formulary)] Naproxen Sodium 550 mg PO BID PRN 04/18/22 04/24/22 Nicotine [Nicotrol] 1 dose INHALATION DIRECTED 04/18/22 04/24/22 Nystatin 100,000 Unit/gm Powd 1 applic TOPICAL BID 04/18/22 04/24/22 [Mycostatin Powder] Pantoprazole [Protonix] 40 mg PO DAILY 04/18/22 04/24/22 Raltegravir Potassium [Isentress] 800 mg PO HS 04/18/22 04/24/22 Ubrogepant [Ubrelvy] 100 mg PO BID PRN 04/18/22 04/24/22 busPIRone HCL [Buspar] 30 mg PO BID 04/18/22 04/24/22 clomiPRAMINE HCL 75 mg PO DAILY 04/18/22 04/24/22 clomiPRAMINE HCL 150 mg PO HS 04/18/22 04/24/22 glipiZIDE [Glucotrol] 10 mg PO BID 04/18/22 04/24/22 lamoTRIgine [lamoTRIgine ER] 300 mg PO HS 04/18/22 04/24/22 metFORMIN HCL ER [Glucophage XR] 1,000 mg PO DAILY 04/18/22 04/24/22 sitaGLIPtin [Januvia] 100 mg PO DAILY 04/18/22 04/24/22 tiZANidine [Zanaflex] 2 mg PO BID PRN 04/18/22 04/24/22 ziprasidone HCL [Geodon] 80 mg PO BID 04/18/22 04/24/22 Nitroglycerin Sl Tabs [Nitrostat] 0.4 mg SL Q5M PRN 04/24/22 04/24/22 Previous Rx's Medication Instructions Recorded Aspirin 81 mg PO DAILY #30 tab 04/19/22 Atorvastatin [Lipitor] 80 mg PO DAILY #30 tab 04/19/22 Clopidogrel [Plavix] 75 mg PO DAILY #30 tab 04/19/22 Diltiazem Cd [Cardizem CD] 180 mg PO DAILY #30 cap 04/19/22 Allergies Allergy/AdvReac Type Severity Reaction Status Date / Time propranolol [From Inderal LA] Allergy Anaphylaxis Verified 05/11/22 19:36 Review of Systems ROS Statement: Those systems with pertinent positive or pertinent negative responses have been documented in the HPI. ROS Other: All systems not noted in ROS Statement are negative. Past Medical History Past Medical History: Chest Pain / Angina, COPD, Diabetes Mellitus, Hypertension Additional Past Medical History / Comment(s): HEP B, HIV,COVID History of Any Multi-Drug Resistant Organisms: None Reported Past Surgical History: Hernia Repair Past Anesthesia/Blood Transfusion Reactions: No Reported Reaction Past Psychological History: No Psychological Hx Reported, Bipolar Smoking Status: Current every day smoker Past Alcohol Use History: Abuse, Daily Past Drug Use History: None Reported, Marijuana General Exam Limitations: no limitations General appearance: alert, in no apparent distress, obese Head exam: Present: atraumatic, normocephalic Eye exam: Present: normal appearance, PERRL Pupils: Present: normal accommodation ENT exam: Present: normal exam, normal oropharynx, mucous membranes moist Neck exam: Present: normal inspection, full ROM Respiratory exam: Present: normal lung sounds bilaterally Cardiovascular Exam: Present: regular rate, normal rhythm, normal heart sounds GI/Abdominal exam: Present: soft Extremities exam: Present: normal inspection, full ROM Back exam: Present: normal inspection, full ROM Neurological exam: Present: alert, oriented X3, CN II-XII intact Psychiatric exam: Present: normal affect, normal mood Skin exam: Present: warm, dry Course Vital Signs 05/11/22 19:28 Temperature 98.7 F Pulse Rate 102 H Respiratory 18 Rate Blood Pressure 142/89 O2 Sat by Pulse 94 L Oximetry EKG Findings - EKG Comments: EKG Findings:: An EKG was obtained and read by myself. EKG showed a rate of 97, IA interval of 180, QRS duration 106 and QTC of 422. This EKG showed a normal sinus rhythm with an incomplete right bundle branch block. There was no ST segment elevations or depressions noted however. Medical Decision Making - Medical Decision Making The patient was seen and evaluated in the emergency department. On physical exam, the patient was lying in bed without any acute distress. Vital signs were stable. Due to the nature the patient's chest pain, laboratory workup, chest x- ray and EKG were obtained. All laboratory workup was within normal limits. Chest x-ray was also negative. An EKG was also within normal limits but showed an incomplete right bundle-branch block. The patient continued to remain stable did not require any further intervention at this time. The patient's heart score was 2 and low. The patient could be safely discharged home. I did advise the patient to follow-up with her primary care physician and operations advisor for further workup and evaluation. The patient did agree to this plan and all of her questions were answered. The patient was discharged home in stable condition. - Lab Data Result diagrams: 05/11/22 20:52 05/11/22 20:52 Lab Results 05/11/22 05/11/22 05/11/22 Range/Units 20:52 20:52 20:52 WBC 10.5 (3.8-10.6) k/uL RBC 5.31 (3.80-5.40) m/uL Hgb 15.3 (11.4-16.0) gm/dL Hct 45.9 (34.0-46.0) % MCV 86.5 (80.0-100.0) fL MCH 28.7 (25.0-35.0) pg MCHC 33.2 (31.0-37.0) g/dL RDW 16.3 H (11.5-15.5) % Plt Count 261 (150-450) k/uL MPV 8.1 Neutrophils % 63 % Lymphocytes % 27 % Monocytes % 4 % Eosinophils % 2 % Basophils % 1 % Neutrophils # 6.6 (1.3-7.7) k/uL Lymphocytes # 2.8 (1.0-4.8) k/uL Monocytes # 0.4 (0-1.0) k/uL Eosinophils # 0.2 (0-0.7) k/uL Basophils # 0.1 (0-0.2) k/uL Anisocytosis Slight PT 9.8 (9.0-12.0) sec INR 0.9 (<1.2) APTT 24.9 (22.0-30.0) sec Sodium 136 L (137-145) mmol/L Potassium 4.6 (3.5-5.1) mmol/L Chloride 100 (98-107) mmol/L Carbon Dioxide 28 (22-30) mmol/L Anion Gap 8 mmol/L BUN 12 (7-17) mg/dL Creatinine 0.75 (0.52-1.04) mg/dL Est GFR (CKD-EPI)AfAm >90 (>60 ml/min/1.73 sqM) Est GFR (CKD-EPI)NonAf 90 (>60 ml/min/1.73 sqM) Glucose 78 (74-99) mg/dL Calcium 9.7 (8.4-10.2) mg/dL Magnesium 1.7 (1.6-2.3) mg/dL Total Bilirubin 0.2 (0.2-1.3) mg/dL AST 28 (14-36) U/L ALT 25 (4-34) U/L Alkaline Phosphatase 71 (38-126) U/L Troponin I (0.000-0.034) ng/mL Total Protein 7.2 (6.3-8.2) g/dL Albumin 4.5 (3.5-5.0) g/dL 05/11/22 Range/Units 20:52 WBC (3.8-10.6) k/uL RBC (3.80-5.40) m/uL Hgb (11.4-16.0) gm/dL Hct (34.0-46.0) % MCV (80.0-100.0) fL MCH (25.0-35.0) pg MCHC (31.0-37.0) g/dL RDW (11.5-15.5) % Plt Count (150-450) k/uL MPV Neutrophils % % Lymphocytes % % Monocytes % % Eosinophils % % Basophils % % Neutrophils # (1.3-7.7) k/uL Lymphocytes # (1.0-4.8) k/uL Monocytes # (0-1.0) k/uL Eosinophils # (0-0.7) k/uL Basophils # (0-0.2) k/uL Anisocytosis PT (9.0-12.0) sec INR (<1.2) APTT (22.0-30.0) sec Sodium (137-145) mmol/L Potassium (3.5-5.1) mmol/L Chloride (98-107) mmol/L Carbon Dioxide (22-30) mmol/L Anion Gap mmol/L BUN (7-17) mg/dL Creatinine (0.52-1.04) mg/dL Est GFR (CKD-EPI)AfAm (>60 ml/min/1.73 sqM) Est GFR (CKD-EPI)NonAf (>60 ml/min/1.73 sqM) Glucose (74-99) mg/dL Calcium (8.4-10.2) mg/dL Magnesium (1.6-2.3) mg/dL Total Bilirubin (0.2-1.3) mg/dL AST (14-36) U/L ALT (4-34) U/L Alkaline Phosphatase (38-126) U/L Troponin I <0.012 (0.000-0.034) ng/mL Total Protein (6.3-8.2) g/dL Albumin (3.5-5.0) g/dL Disposition Clinical Impression: Chest pain Disposition: HOME SELF-CARE Condition: Stable Instructions (If sedation given, give patient instructions): Chest Pain (ED) Is patient prescribed a controlled substance at d/c from ED?: No Referrals: Joanne Aguayo MD [Primary Care Provider] - 1-2 days Time of Disposition: 22:00
[2022-05-11 22:23] VITALS: BP 128/85; PULSE 107
== END 2022-05-11 22:56 | disposition home or self-care (01) ==
LOC: EC 19:27
DX: R07.9 Chest pain, unspecified (principal); B20 Human immunodeficiency virus [HIV] disease; I10 Essential (primary) hypertension; J44.9 Chronic obstructive pulmonary disease, unspecified; E11.9 Type 2 diabetes mellitus without complications; F17.200 Nicotine dependence, unspecified, uncomplicated; F10.10 Alcohol abuse, uncomplicated; F12.90 Cannabis use, unspecified, uncomplicated; Z86.16 Personal history of COVID-19; Z79.51 Long term (current) use of inhaled steroids; Z79.899 Other long term (current) drug therapy; Z79.811 Long term (current) use of aromatase inhibitors; Z79.84 Long term (current) use of oral hypoglycemic drugs; Z88.8 Allergy status to other drugs, medicaments and biological substances
CPT/HCPCS: 36415; 71046; 80053; 83735; 84484; 85025; 85610; 85730; 93005; 99285

== ENCOUNTER 2022-06-13 00:49 | Emergency (ER) | payer MEDICARE, OTHER ==
[2022-06-13 01:03] VITALS: RESP 15; TEMP 98.1
[2022-06-13] MEDS ORDERED: KETOROLAC 15 MG/ML 1 ML VIAL IVP STA (01:21)
[2022-06-13 02:22] LABS: Appearance,Urine Clear (Clear); Basophils # (A) 0.1 k/uL (0-0.2); Basophils % (A) 0 %; Bilirubin,Urine Negative (Negative); Blood,Urine Negative (Negative); Color,Urine Colorless; Eosinophils # (A) 0.2 k/uL (0-0.7); Eosinophils % (A) 1 %; Glucose,Urine (UA) 4+ (Negative); HCT 43.1 % (34.0-46.0); HGB 14.7 gm/dL (11.4-16.0); Ketones,Urine Negative (Negative); Leukocyte Esterase,Urine Negative (Negative); Lymphocytes # (A) 3.1 k/uL (1.0-4.8); Lymphocytes % (A) 25 %; MCHC 34.1 g/dL (31.0-37.0); Mean Platelet Volume 8.1; Monocytes # (A) 0.5 k/uL (0-1.0); Monocytes % (A) 4 %; Neutrophils # (A) 8.1 k/uL (1.3-7.7); Neutrophils % (A) 65 %; Nitrite,Urine Negative (Negative); PH, Urine 5.5 (5.0-8.0); Platelet Count 252 k/uL (150-450); Protein,Urine Negative (Negative); RDW 15.6 % (11.5-15.5); Specific Gravity,Urine 1.004 (1.001-1.035); Urobilinogen,Urine <2.0 mg/dL (<2.0); WBC 12.4 k/uL (3.8-10.6)
[2022-06-13 02:32] LABS: ALT 24 U/L (4-34); AST 25 U/L (14-36); African American GFR (CKD) >90 (>60 ml/min/1.73 sqM); Albumin 4.3 g/dL (3.5-5.0); Alkaline Phosphatase 73 U/L (38-126); Anion Gap 11 mmol/L; Blood Urea Nitrogen 10 mg/dL (7-17); Calcium 8.9 mg/dL (8.4-10.2); Carbon Dioxide 22 mmol/L (22-30); Chloride 103 mmol/L (98-107); Glucose 123 mg/dL (74-99); Lipase 393 U/L (23-300); Non-African American GFR(CKD) >90 (>60 ml/min/1.73 sqM); Potassium 4.3 mmol/L (3.5-5.1); Sodium 136 mmol/L (137-145); Total Bilirubin 0.2 mg/dL (0.2-1.3)
[2022-06-13 02:35] LABS: Alcohol 121 mg/dL
--- NOTE | 2022-06-13 04:02 | XR ---
EXAM: XR Left Knee, 3 Views CLINICAL HISTORY: ITS.REASON XR Reason: Pain TECHNIQUE: Three views of the left knee. COMPARISON: October 26, 2021 FINDINGS: Bones/joints: Mild narrowing and osteophytosis in the knee greatest involving the medial joint space which measures 3.5 mm. The articular surface is smooth. No fracture or dislocation is seen. No joint effusion is identified. Soft tissues: Unremarkable. IMPRESSION: Mild to moderate osteoarthritic changes in the knee, greatest medially, unchanged. No acute fracture or dislocation is seen.
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
[2022-06-13 05:48] VITALS: BP 141/74; PULSE 87
== END 2022-06-13 05:48 | disposition home or self-care (01) ==
LOC: EC 00:49
DX: M25.562 Pain in left knee (principal); F10.10 Alcohol abuse, uncomplicated; I10 Essential (primary) hypertension; J44.9 Chronic obstructive pulmonary disease, unspecified; E11.9 Type 2 diabetes mellitus without complications; F12.90 Cannabis use, unspecified, uncomplicated; F17.200 Nicotine dependence, unspecified, uncomplicated; Z79.899 Other long term (current) drug therapy; Z79.84 Long term (current) use of oral hypoglycemic drugs; Z88.8 Allergy status to other drugs, medicaments and biological substances
CPT/HCPCS: 36415; 80053; 83690; 85025; 81003; 73562; 99284; 96374; G0480; J1885; 80320

== ENCOUNTER → 2022-06-18 | Outpatient (CLI) | payer MEDICARE, OTHER ==
--- NOTE | 2022-06-18 12:31 | XR ---
EXAMINATION TYPE: XR wrist complete RT DATE OF EXAM: 06/18/2022 12:00 PM INDICATION: Patient age:Female; 56 years old; Reason for study: [id number] RT HAND PAIN; [facility]. COMPARISON: None TECHNIQUE: Frontal, oblique, and lateral views of the right wrist. FINDINGS: No acute osseous pathology, joint dislocation, or joint effusion. No evidence of any soft tissue swelling is seen. IMPRESSION: No acute osseous pathology.
== END | disposition home or self-care (01) ==
LOC: RADXRYALE 11:45
PROVIDERS: ATTEND Internal Medicine
DX: M79.641 Pain in right hand (principal)

== ENCOUNTER 2022-07-04 22:36 | Emergency (ER) | payer MEDICARE, OTHER ==
[2022-07-04 22:44] VITALS: BP 140/70; PULSE 100; RESP 14; TEMP 98.1
--- NOTE | 2022-07-04 23:29 | ED ---
Alcohol HPI - General Chief Complaint: Alcohol Stated Complaint: ETOH Time Seen by Provider: 07/04/22 22:44 Source: patient, EMS, RN notes reviewed, old records reviewed Mode of arrival: EMS Limitations: no limitations - History of Present Illness Initial Comments: This is a 56-year-old female who presented by EMS for alcohol intoxication, patient called EMS her self at home and she was drinking at home states she drank too much with debating finding her boyfriend decided not to decide with the situation now presents to the ER, patient is not homicidal or suicidal while that she does want to go home. Patient states that she feels well. MD Complaint: alcohol intoxication, alcohol withdrawal Last Drink: just [employer] -: hour(s) Previous Visits for Alcohol Intoxication?: Yes Recent Trauma: Yes Associated Symptoms: nausea, vomiting Treatments Prior to Arrival: none Chronic Alcohol Use: Yes - Related Data Home Medications Medication Instructions Recorded Confirmed Acamprosate Calcium [Campral] 333 mg PO TID 04/18/22 04/24/22 Albuterol Sulfate [Albuterol 2 puff INHALATION RT-Q4H PRN 04/18/22 04/24/22 Sulfate Hfa] Canagliflozin [Invokana] 100 mg PO DAILY 04/18/22 04/24/22 Emtricitabine/Tenofov Alafenam 1 tab PO DAILY 04/18/22 04/24/22 [Descovy 200-25 mg Tablet] Fluticasone/Umeclidin/Vilanter 1 puff INHALATION RT-DAILY 04/18/22 04/24/22 [Trelegy Ellipta 100-62.5-25] Fremanezumab-Vfrm [Ajovy Syringe] 225 mg SQ Q90D 04/18/22 04/24/22 Ipratropium-Albuterol Nebulize 3 ml INHALATION RT-TID PRN 04/18/22 04/24/22 [Duoneb 0.5 mg-3 mg/3 ml Soln] Loratadine [Claritin] 10 mg PO DAILY 04/18/22 04/24/22 Losartan [Cozaar] 25 mg PO DAILY 04/18/22 04/24/22 Multivitamins, Thera [Multivitamin 1 tab PO DAILY 04/18/22 04/24/22 (formulary)] Naproxen Sodium 550 mg PO BID PRN 04/18/22 04/24/22 Nicotine [Nicotrol] 1 dose INHALATION DIRECTED 04/18/22 04/24/22 Nystatin 100,000 Unit/gm Powd 1 applic TOPICAL BID 04/18/22 04/24/22 [Mycostatin Powder] Pantoprazole [Protonix] 40 mg PO DAILY 04/18/22 04/24/22 Raltegravir Potassium [Isentress] 800 mg PO HS 04/18/22 04/24/22 Ubrogepant [Ubrelvy] 100 mg PO BID PRN 04/18/22 04/24/22 busPIRone HCL [Buspar] 30 mg PO BID 04/18/22 04/24/22 clomiPRAMINE HCL 75 mg PO DAILY 04/18/22 04/24/22 clomiPRAMINE HCL 150 mg PO HS 04/18/22 04/24/22 glipiZIDE [Glucotrol] 10 mg PO BID 04/18/22 04/24/22 lamoTRIgine [lamoTRIgine ER] 300 mg PO HS 04/18/22 04/24/22 metFORMIN HCL ER [Glucophage XR] 1,000 mg PO DAILY 04/18/22 04/24/22 sitaGLIPtin [Januvia] 100 mg PO DAILY 04/18/22 04/24/22 tiZANidine [Zanaflex] 2 mg PO BID PRN 04/18/22 04/24/22 ziprasidone HCL [Geodon] 80 mg PO BID 04/18/22 04/24/22 Nitroglycerin Sl Tabs [Nitrostat] 0.4 mg SL Q5M PRN 04/24/22 04/24/22 Previous Rx's Medication Instructions Recorded Aspirin 81 mg PO DAILY #30 tab 04/19/22 Atorvastatin [Lipitor] 80 mg PO DAILY #30 tab 04/19/22 Clopidogrel [Plavix] 75 mg PO DAILY #30 tab 04/19/22 Diltiazem Cd [Cardizem CD] 180 mg PO DAILY #30 cap 04/19/22 Allergies Allergy/AdvReac Type Severity Reaction Status Date / Time propranolol [From Inderal LA] Allergy Anaphylaxis Verified 06/22/22 02:38 Review of Systems ROS Statement: Those systems with pertinent positive or pertinent negative responses have been documented in the HPI. ROS Other: All systems not noted in ROS Statement are negative. Past Medical History Past Medical History: Chest Pain / Angina, COPD, Diabetes Mellitus, Hypertension Additional Past Medical History / Comment(s): HEP B, HIV,COVID History of Any Multi-Drug Resistant Organisms: None Reported Past Surgical History: Hernia Repair Past Anesthesia/Blood Transfusion Reactions: No Reported Reaction Past Psychological History: Bipolar Smoking Status: Current every day smoker Past Alcohol Use History: Abuse, Daily Past Drug Use History: None Reported, Marijuana General Exam Limitations: no limitations General appearance: alert, in no apparent distress Head exam: Present: atraumatic, normocephalic, normal inspection Eye exam: Present: normal appearance, PERRL, EOMI. Absent: scleral icterus, conjunctival injection, periorbital swelling ENT exam: Present: normal exam, mucous membranes dry, mucous membranes moist Neck exam: Present: normal inspection. Absent: tenderness, meningismus, lymphadenopathy Respiratory exam: Present: normal lung sounds bilaterally. Absent: respiratory distress, wheezes, rales, rhonchi, stridor Cardiovascular Exam: Present: regular rate, normal rhythm, normal heart sounds. Absent: systolic murmur, diastolic murmur, rubs, gallop, clicks GI/Abdominal exam: Present: soft, normal bowel sounds. Absent: distended, tenderness, guarding, rebound, rigid Extremities exam: Present: normal inspection, full ROM, normal capillary refill. Absent: tenderness, pedal edema, joint swelling, calf tenderness Back exam: Present: normal inspection Neurological exam: Present: alert, oriented X3, CN II-XII intact Psychiatric exam: Present: normal affect, normal mood Skin exam: Present: warm, dry, intact, normal color. Absent: rash Course Vital Signs 07/04/22 22:41 Temperature 98.1 F Pulse Rate 100 Respiratory 14 Rate Blood Pressure 140/70 O2 Sat by Pulse 94 L Oximetry - Reevaluation(s) Reevaluation #1: 07/05/22 00:20 Medical records reviewed Reevaluation #2: 07/05/22 00:20 Patient informed results and questions answered Reevaluation #3: 07/05/22 00:20 Patient awake and alert able to amply without difficulty Reevaluation #4: 07/05/22 00:20 Was pt. sent in by a medical professional or institution? @ -no Did you speak to anyone other than the patient for history? @ -no Did you review nursing and triage notes? @ -agree Were old charts reviewed? @ -no Differential Diagnosis? @ -no EKG interpreted by me (3pts min.)? @ -[none] X-rays interpreted by me (1pt min.)? @ -[none] CT interpreted by me (1pt min.)? @ -[none] U/S interpreted by me (1pt. min.)? @ -[none] What testing was considered but not performed? (CT, X-rays, U/S, labs)? Why? @ no What meds were considered but not given? Why? @ -[none] Did you discuss the management of the patient with other professionals? @ -no Did you reconcile home meds? @ -[none] Was smoking cessation discussed for >3mins.? @ -[none] Was critical care preformed (if so, how long)? @ -[none] Were there social determinants of health that impacted care today? How? (Homelessness, low income, unemployed, alcoholism, drug addiction, transportation, low edu. Level, literacy, decrease access to med. care, snf, rehab)? @ -no Was there de-escalation of care discussed even if they declined? (Discuss DNR or withdrawal of care, Hospice)? @ -no What co-morbidities impacted this encounter? (DM, HTN, Smoking, COPD, CAD, Cancer, CVA, Hep., AIDS, mental health diagnosis, sleep apnea, morbid obesity)? @ -no Was patient admitted / discharged? @ -dc Undiagnosed new problem with uncertain prognosis? @ -[none] Drug Therapy requiring intensive monitoring for toxicity (Heparin, Nitro, Insulin, Cardizem)? @ -[none] Were any procedures done? @ -[none] Diagnosis/symptom? @ -[default] Acute, or Chronic, or Acute on Chronic? @ -[default] Uncomplicated (without systemic symptoms) or Complicated (systemic symptoms)? @ -[default] Side effects of treatment? @ -[none] Exacerbation, Progression, or Severe Exacerbation] @ -[no] Poses a threat to life or bodily function? @ -[no] Medical Decision Making - Medical Decision Making 56 female to the emergency department for evaluation patient presents today for evaluation regards to alcohol intoxication feels well not homicidal or suicidal and prefer discharged home Disposition Clinical Impression: Alcoholic intoxication, ETOH abuse Disposition: HOME SELF-CARE Condition: Fair Instructions (If sedation given, give patient instructions): Alcohol Intoxication (ED) Is patient prescribed a controlled substance at d/c from ED?: No Referrals: Joanne Aguayo MD [Primary Care Provider] - 1-2 days Time of Disposition: 23:35
== END 2022-07-05 00:45 | disposition home or self-care (01) ==
LOC: EC 22:36
DX: F10.129 Alcohol abuse with intoxication, unspecified (principal); E11.9 Type 2 diabetes mellitus without complications; I10 Essential (primary) hypertension; F31.9 Bipolar disorder, unspecified; F17.200 Nicotine dependence, unspecified, uncomplicated; F12.90 Cannabis use, unspecified, uncomplicated; Z88.8 Allergy status to other drugs, medicaments and biological substances; Z79.84 Long term (current) use of oral hypoglycemic drugs; Z79.899 Other long term (current) drug therapy
CPT/HCPCS: 99284

== ENCOUNTER 2022-07-06 23:50 | Emergency (ER) | payer MEDICARE, OTHER ==
--- NOTE | 2022-07-06 23:53 | ED ---
Alcohol HPI - General Stated Complaint: ETOH, Mental health Time Seen by Provider: 07/06/22 23:52 Source: RN notes reviewed, old records reviewed Mode of arrival: EMS Limitations: altered mental status - History of Present Illness Initial Comments: This is a 56-year-old female to the ER for evaluation presented by EMS for alcohol intoxication. Patient called EMS for evaluation as she does not like her same intoxication and is afraid she might do something that she does not want to do. A she has history of alcohol abuse and is known this facility. 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) Previous Visits for Alcohol Intoxication?: Yes Recent Trauma: No Associated Symptoms: denies other symptoms Treatments Prior to Arrival: none Chronic Alcohol Use: Yes - Related Data Home Medications Medication Instructions Recorded Confirmed Acamprosate Calcium [Campral] 333 mg PO TID 04/18/22 04/24/22 Albuterol Sulfate [Albuterol 2 puff INHALATION RT-Q4H PRN 04/18/22 04/24/22 Sulfate Hfa] Canagliflozin [Invokana] 100 mg PO DAILY 04/18/22 04/24/22 Emtricitabine/Tenofov Alafenam 1 tab PO DAILY 04/18/22 04/24/22 [Descovy 200-25 mg Tablet] Fluticasone/Umeclidin/Vilanter 1 puff INHALATION RT-DAILY 04/18/22 04/24/22 [Trelegy Ellipta 100-62.5-25] Fremanezumab-Vfrm [Ajovy Syringe] 225 mg SQ Q90D 04/18/22 04/24/22 Ipratropium-Albuterol Nebulize 3 ml INHALATION RT-TID PRN 04/18/22 04/24/22 [Duoneb 0.5 mg-3 mg/3 ml Soln] Loratadine [Claritin] 10 mg PO DAILY 04/18/22 04/24/22 Losartan [Cozaar] 25 mg PO DAILY 04/18/22 04/24/22 Multivitamins, Thera [Multivitamin 1 tab PO DAILY 04/18/22 04/24/22 (formulary)] Naproxen Sodium 550 mg PO BID PRN 04/18/22 04/24/22 Nicotine [Nicotrol] 1 dose INHALATION DIRECTED 04/18/22 04/24/22 Nystatin 100,000 Unit/gm Powd 1 applic TOPICAL BID 04/18/22 04/24/22 [Mycostatin Powder] Pantoprazole [Protonix] 40 mg PO DAILY 04/18/22 04/24/22 Raltegravir Potassium [Isentress] 800 mg PO HS 04/18/22 04/24/22 Ubrogepant [Ubrelvy] 100 mg PO BID PRN 04/18/22 04/24/22 busPIRone HCL [Buspar] 30 mg PO BID 04/18/22 04/24/22 clomiPRAMINE HCL 75 mg PO DAILY 04/18/22 04/24/22 clomiPRAMINE HCL 150 mg PO HS 04/18/22 04/24/22 glipiZIDE [Glucotrol] 10 mg PO BID 04/18/22 04/24/22 lamoTRIgine [lamoTRIgine ER] 300 mg PO HS 04/18/22 04/24/22 metFORMIN HCL ER [Glucophage XR] 1,000 mg PO DAILY 04/18/22 04/24/22 sitaGLIPtin [Januvia] 100 mg PO DAILY 04/18/22 04/24/22 tiZANidine [Zanaflex] 2 mg PO BID PRN 04/18/22 04/24/22 ziprasidone HCL [Geodon] 80 mg PO BID 04/18/22 04/24/22 Nitroglycerin Sl Tabs [Nitrostat] 0.4 mg SL Q5M PRN 04/24/22 04/24/22 Previous Rx's Medication Instructions Recorded Aspirin 81 mg PO DAILY #30 tab 04/19/22 Atorvastatin [Lipitor] 80 mg PO DAILY #30 tab 04/19/22 Clopidogrel [Plavix] 75 mg PO DAILY #30 tab 04/19/22 Diltiazem Cd [Cardizem CD] 180 mg PO DAILY #30 cap 04/19/22 Allergies Allergy/AdvReac Type Severity Reaction Status Date / Time propranolol [From Inderal LA] Allergy Anaphylaxis Verified 07/06/22 23:55 Review of Systems ROS Statement: Those systems with pertinent positive or pertinent negative responses have been documented in the HPI. ROS Other: All systems not noted in ROS Statement are negative. Past Medical History Past Medical History: Chest Pain / Angina, COPD, Diabetes Mellitus, Hypertension Additional Past Medical History / Comment(s): HEP B, HIV,COVID History of Any Multi-Drug Resistant Organisms: None Reported Past Surgical History: Hernia Repair Past Anesthesia/Blood Transfusion Reactions: No Reported Reaction Past Psychological History: Bipolar Smoking Status: Current every day smoker Past Alcohol Use History: Abuse, Daily Past Drug Use History: None Reported, Marijuana General Exam General appearance: alert, in no apparent distress, appears intoxicated Head exam: Present: atraumatic, normocephalic, normal inspection Eye exam: Present: normal appearance, PERRL, EOMI. Absent: scleral icterus, conjunctival injection, periorbital swelling ENT exam: Present: normal exam, mucous membranes moist Neck exam: Present: normal inspection. Absent: tenderness, meningismus, lymphadenopathy Respiratory exam: Present: normal lung sounds bilaterally. Absent: respiratory distress, wheezes, rales, rhonchi, stridor Cardiovascular Exam: Present: regular rate, normal rhythm, normal heart sounds. Absent: systolic murmur, diastolic murmur, rubs, gallop, clicks GI/Abdominal exam: Present: soft, normal bowel sounds. Absent: distended, tenderness, guarding, rebound, rigid Extremities exam: Present: normal inspection, full ROM, normal capillary refill. Absent: tenderness, pedal edema, joint swelling, calf tenderness Back exam: Present: normal inspection Neurological exam: Present: alert, oriented X3, CN II-XII intact Psychiatric exam: Present: normal affect, normal mood Skin exam: Present: warm, dry, intact, normal color. Absent: rash Course Vital Signs 07/06/22 23:55 Temperature 98 F Pulse Rate 93 Respiratory 16 Rate Blood Pressure 130/68 O2 Sat by Pulse 96 Oximetry - Reevaluation(s) Reevaluation #1: 07/06/22 23:53 Medical record is reviewed Reevaluation #2: 07/07/22 01:09 Patient has no current complaints feels improved prefers discharge Reevaluation #3: 07/07/22 01:09 Patient informed results and questions answered Reevaluation #4: 07/07/22 01:09 Was pt. sent in by a medical professional or institution? @ -no Did you speak to anyone other than the patient for history? @ -no Did you review nursing and triage notes? @ -agree Were old charts reviewed? @ -no Differential Diagnosis? @ -no EKG interpreted by me (3pts min.)? @ -[none] X-rays interpreted by me (1pt min.)? @ -[none] CT interpreted by me (1pt min.)? @ -[none] U/S interpreted by me (1pt. min.)? @ -[none] What testing was considered but not performed? (CT, X-rays, U/S, labs)? Why? @ [CT, X-rays, U/S, labs? Why?] What meds were considered but not given? Why? @ -no Did you discuss the management of the patient with other professionals? @ -no Did you reconcile home meds? @ -[none] Was smoking cessation discussed for >3mins.? @ -[none] Was critical care preformed (if so, how long)? @ -[none] Were there social determinants of health that impacted care today? How? (Homelessness, low income, unemployed, alcoholism, drug addiction, transportation, low edu. Level, literacy, decrease access to med. care, detention, rehab)? @ -no Was there de-escalation of care discussed even if they declined? (Discuss DNR or withdrawal of care, Hospice)? @ -no What co-morbidities impacted this encounter? (DM, HTN, Smoking, COPD, CAD, Cancer, CVA, Hep., AIDS, mental health diagnosis, sleep apnea, morbid obesity)? @ -no Was patient admitted / discharged? @ -dc Undiagnosed new problem with uncertain prognosis? @ -[none] Drug Therapy requiring intensive monitoring for toxicity (Heparin, Nitro, Insulin, Cardizem)? @ -[none] Were any procedures done? @ -[none] Diagnosis/symptom? @ -[default] Acute, or Chronic, or Acute on Chronic? @ -[default] Uncomplicated (without systemic symptoms) or Complicated (systemic symptoms)? @ -[default] Side effects of treatment? @ -[none] Exacerbation, Progression, or Severe Exacerbation] @ -[no] Poses a threat to life or bodily function? @ -[no] Medical Decision Making - Medical Decision Making 56 female to the emergency department for evaluation patient presented for alcohol intoxication. At this time patient states she feels well wants to go home and sleep. Patient is not homicidal or suicidal has no other complaints Disposition Clinical Impression: Alcoholic intoxication Disposition: HOME SELF-CARE Condition: Fair Instructions (If sedation given, give patient instructions): Alcohol Intoxication (ED) Is patient prescribed a controlled substance at d/c from ED?: No Referrals: Joanne Aguayo MD [Primary Care Provider] - 1-2 days Time of Disposition: 01:10
[2022-07-06 23:59] VITALS: BP 130/68; PULSE 93; RESP 16; TEMP 98
== END 2022-07-07 01:26 | disposition home or self-care (01) ==
LOC: EC 23:50
DX: F10.129 Alcohol abuse with intoxication, unspecified (principal); I10 Essential (primary) hypertension; E11.9 Type 2 diabetes mellitus without complications; F31.9 Bipolar disorder, unspecified; F17.200 Nicotine dependence, unspecified, uncomplicated; F12.90 Cannabis use, unspecified, uncomplicated; Z79.02 Long term (current) use of antithrombotics/antiplatelets; Z79.82 Long term (current) use of aspirin; Z79.84 Long term (current) use of oral hypoglycemic drugs; Z79.899 Other long term (current) drug therapy; Z88.8 Allergy status to other drugs, medicaments and biological substances
CPT/HCPCS: 99284

== ENCOUNTER 2022-07-14 19:53 | Emergency (ER) | payer MEDICARE, OTHER ==
[2022-07-14] MEDS ORDERED: SODIUM CHLORIDE 0.9% 1,000 ML IV STA (19:57)
[2022-07-14] MEDS ORDERED: SODIUM CHLORIDE 0.9% 500 ML 500 ML IV STA (19:57)
[2022-07-14] MEDS ORDERED: LORazepam 0.5 MG TAB PO PRN (19:58)
[2022-07-14] MEDS ORDERED: THIAMINE 100 MG/ML 2 ML VIAL IM STA (19:58)
[2022-07-14] MEDS ORDERED: LORazepam 1 MG TAB PO PRN ×3 (19:58)
[2022-07-14] MEDS ORDERED: LORazepam 2 MG/ML INJ IV PRN (19:58)
[2022-07-14] MEDS ORDERED: ONDANSETRON 4 MG/2 ML VIAL IVP STA (20:05)
[2022-07-14 20:10] VITALS: RESP 16; TEMP 98.2
--- NOTE | 2022-07-14 20:48 | ED ---
Alcohol HPI - General Chief Complaint: Recheck/Abnormal Lab/Rx Stated Complaint: High Blood Pressure, Alcohol Detox Time Seen by Provider: 07/14/22 19:55 Source: patient, RN notes reviewed Mode of arrival: EMS Limitations: no limitations - History of Present Illness Initial Comments: This is a 56-year-old female who presents to the emergency department for alcohol withdrawals. She has a history of chronic alcohol abuse and her last drink was one week ago. States that she has been shaking over the last week, and requests medical management for detox. Denies any history of withdrawal seizures or DTs. Reports associated nausea and feeling generally unwell. She also states that she is concerned about her blood pressure being elevated despite taking her home blood pressure medication. Denies any fevers, chills, sore throat, cough, dyspnea, chest pain, palpitations, abdominal pain, vomiting, diarrhea, or back pain. MD Complaint: alcohol withdrawal Time Since Last Drink: 7 Previous Visits for Alcohol Intoxication?: Yes Recent Trauma: No Associated Symptoms: nausea Chronic Alcohol Use: Yes - Related Data Home Medications Medication Instructions Recorded Confirmed Acamprosate Calcium [Campral] 333 mg PO TID 04/18/22 07/14/22 Albuterol Sulfate [Albuterol 2 puff INHALATION RT-Q4H PRN 04/18/22 07/14/22 Sulfate Hfa] Canagliflozin [Invokana] 100 mg PO DAILY 04/18/22 07/14/22 Emtricitabine/Tenofov Alafenam 1 tab PO DAILY 04/18/22 07/14/22 [Descovy 200-25 mg Tablet] Fluticasone/Umeclidin/Vilanter 1 puff INHALATION RT-DAILY 04/18/22 07/14/22 [Trelegy Ellipta 100-62.5-25] Fremanezumab-Vfrm [Ajovy Syringe] 225 mg SQ Q90D 04/18/22 07/14/22 Ipratropium-Albuterol Nebulize 3 ml INHALATION RT-TID PRN 04/18/22 07/14/22 [Duoneb 0.5 mg-3 mg/3 ml Soln] Loratadine [Claritin] 10 mg PO DAILY 04/18/22 07/14/22 Losartan [Cozaar] 25 mg PO DAILY 04/18/22 07/14/22 Multivitamins, Thera [Multivitamin 1 tab PO DAILY 04/18/22 07/14/22 (formulary)] Naproxen Sodium 550 mg PO BID PRN 04/18/22 07/14/22 Nicotine [Nicotrol] 1 dose INHALATION DIRECTED PRN 04/18/22 07/14/22 Nystatin 100,000 Unit/gm Powd 1 applic TOPICAL BID 04/18/22 07/14/22 [Mycostatin Powder] Pantoprazole [Protonix] 40 mg PO DAILY 04/18/22 07/14/22 Raltegravir Potassium [Isentress] 800 mg PO HS 04/18/22 07/14/22 Ubrogepant [Ubrelvy] 100 mg PO BID PRN 04/18/22 07/14/22 busPIRone HCL [Buspar] 30 mg PO BID 04/18/22 07/14/22 clomiPRAMINE HCL 75 mg PO DAILY 04/18/22 07/14/22 clomiPRAMINE HCL 150 mg PO HS 04/18/22 07/14/22 glipiZIDE [Glucotrol] 10 mg PO BID 04/18/22 07/14/22 lamoTRIgine [lamoTRIgine ER] 300 mg PO HS 04/18/22 07/14/22 metFORMIN HCL ER [Glucophage XR] 1,000 mg PO DAILY 04/18/22 07/14/22 sitaGLIPtin [Januvia] 100 mg PO DAILY 04/18/22 07/14/22 tiZANidine [Zanaflex] 2 mg PO BID PRN 04/18/22 07/14/22 ziprasidone HCL [Geodon] 80 mg PO BID 04/18/22 07/14/22 Nitroglycerin Sl Tabs [Nitrostat] 0.4 mg SL Q5M PRN 04/24/22 07/14/22 Previous Rx's Medication Instructions Recorded Aspirin 81 mg PO DAILY #30 tab 04/19/22 Atorvastatin [Lipitor] 80 mg PO DAILY #30 tab 04/19/22 Clopidogrel [Plavix] 75 mg PO DAILY #30 tab 04/19/22 Diltiazem Cd [Cardizem CD] 180 mg PO DAILY #30 cap 04/19/22 LORazepam [Ativan] 0.5 mg PO BID PRN 3 Days #6 tab 07/14/22 Allergies Allergy/AdvReac Type Severity Reaction Status Date / Time propranolol [From Inderal LA] Allergy Anaphylaxis Verified 07/14/22 21:22 Review of Systems ROS Statement: Those systems with pertinent positive or pertinent negative responses have been documented in the HPI. ROS Other: All systems not noted in ROS Statement are negative. Past Medical History Past Medical History: Chest Pain / Angina, COPD, Diabetes Mellitus, Hypertension Additional Past Medical History / Comment(s): HEP B, HIV,COVID History of Any Multi-Drug Resistant Organisms: None Reported Past Surgical History: Hernia Repair Past Anesthesia/Blood Transfusion Reactions: No Reported Reaction Past Psychological History: Bipolar Smoking Status: Current every day smoker Past Alcohol Use History: Abuse, Daily Past Drug Use History: Marijuana General Exam Limitations: no limitations General appearance: alert, in no apparent distress Head exam: Present: atraumatic, normocephalic, normal inspection Respiratory exam: Present: normal lung sounds bilaterally. Absent: respiratory distress, wheezes, rales, rhonchi, stridor Cardiovascular Exam: Present: regular rate, normal rhythm, normal heart sounds. Absent: systolic murmur, diastolic murmur, rubs, gallop, clicks Neurological exam: Present: alert, oriented X3, CN II-XII intact Psychiatric exam: Present: normal affect, normal mood Skin exam: Present: warm, dry, intact, normal color. Absent: rash Course Vital Signs 07/14/22 07/14/22 07/15/22 20:01 22:00 00:22 Temperature 98.2 F Pulse Rate 104 H 98 90 Respiratory 16 16 16 Rate Blood Pressure 145/85 159/85 148/68 O2 Sat by Pulse 95 99 99 Oximetry Medical Decision Making - Medical Decision Making This is a 56-year-old female who presents to the emergency department for alcohol withdrawals. Was pt. sent in by a medical professional or institution? @ -No Did you speak to anyone other than the patient for history? @ -EMS Did you review nursing and triage notes? @ -Yes, and I agree, it is accurate with regards to the patient's symptoms. Were old charts reviewed? @ -No Differential Diagnosis? @ -Differential Alcohol Withdrawals: Sympathomimetic syndrome, anti-muscarinic syndrome, serotonin syndrome, neuroleptic malignant syndrome, thyrotoxicosis, encephalitis, acute psychosis, hypoglycemia, trauma, sepsis. This is not meant to be an all-inclusive list. What testing was considered but not performed? (CT, X-rays, U/S, labs)? Why? @ -None What meds were considered but not given? Why? @ -None Did you discuss the management of the patient with other professionals? @ -No Did you reconcile home meds? @ -No Was smoking cessation discussed for >3mins.? @ -No Was critical care preformed (if so, how long)? @ -No Were there social determinants of health that impacted care today? How? (Homelessness, low income, unemployed, alcoholism, drug addiction, transportation, low edu. Level, literacy, decrease access to med. care, shelter, rehab)? @ -Yes, alcoholism, causing recurrent visits for alcohol intoxication and withdrawals. Was there de-escalation of care discussed even if they declined? (Discuss DNR or withdrawal of care, Hospice)? @ -No What co-morbidities impacted this encounter? (DM, HTN, Smoking, COPD, CAD, Cancer, CVA, Hep., AIDS, mental health diagnosis, sleep apnea, morbid obesity)? @ -HTN Was patient admitted / discharged? @ -Discharged. Despite the patient's concern regarding her blood pressure, this was not elevated to any significant level that required action or medication adjustments on our part. She was given IV fluids and the CIWA protocol was initiated. Lab work obtained and found to be nonactionable. The symptoms of abdominal pain and her headache were effectively managed with Toradol, Pepcid, Reglan, and Tylenol. I did offer admission for alcohol withdrawal management, however the patient declined and requested discharge home. Prescription for Ativan provided with dosing instructions reviewed for any additional withdrawal symptoms. Advised that she needs to work on reducing her alcohol consumption to avoid these problems in the future. She is also advised to discuss the blood pressure concerns with her primary care provider. She was taken home in a taxicab, the patient was not driving or operating any machinery. Undiagnosed new problem with uncertain prognosis? @ -None Drug Therapy requiring intensive monitoring for toxicity (Heparin, Nitro, Insulin, Cardizem)? @ -None Were any procedures done? @ -None Diagnosis/symptom? @ -Alcohol withdrawals Acute, or Chronic, or Acute on Chronic? @ -Acute Uncomplicated (without systemic symptoms) or Complicated (systemic symptoms)? @ -Complicated Side effects of treatment? @ -None Exacerbation, Progression, or Severe Exacerbation] @ -Not applicable Poses a threat to life or bodily function? @ -Not at the current severity level Diagnosis/symptom? @ -Hypertension Acute, or Chronic, or Acute on Chronic? @ -Chronic Uncomplicated (without systemic symptoms) or Complicated (systemic symptoms)? @ -Uncomplicated Side effects of treatment? @ -None Exacerbation, Progression, or Severe Exacerbation] @ -None Poses a threat to life or bodily function? @ -Not with her current blood pressure Return precautions reviewed in depth, the patient is instructed to return to the emergency department with any new, worsening, or concerning symptoms. Patient verbalized understanding. This case was discussed in detail with the attending ED physician, Dr. Zepeda. Presentation, findings, and treatment plan discussed in detail as well. - Lab Data Result diagrams: 07/14/22 20:40 07/14/22 20:40 Lab Results 07/14/22 07/14/22 07/14/22 Range/Units 20:40 20:40 20:40 WBC 10.0 (3.8-10.6) k/uL RBC 5.38 (3.80-5.40) m/uL Hgb 16.1 H (11.4-16.0) gm/dL Hct 48.2 H (34.0-46.0) % MCV 89.7 (80.0-100.0) fL MCH 30.0 (25.0-35.0) pg MCHC 33.4 (31.0-37.0) g/dL RDW 14.4 (11.5-15.5) % Plt Count 247 (150-450) k/uL MPV 7.8 Neutrophils % 69 % Lymphocytes % 22 % Monocytes % 4 % Eosinophils % 1 % Basophils % 1 % Neutrophils # 6.8 (1.3-7.7) k/uL Lymphocytes # 2.2 (1.0-4.8) k/uL Monocytes # 0.4 (0-1.0) k/uL Eosinophils # 0.1 (0-0.7) k/uL Basophils # 0.1 (0-0.2) k/uL PT 10.0 (9.0-12.0) sec INR 0.9 (<1.2) Sodium 134 L (137-145) mmol/L Potassium 4.1 (3.5-5.1) mmol/L Chloride 98 (98-107) mmol/L Carbon Dioxide 26 (22-30) mmol/L Anion Gap 10 mmol/L BUN 21 H (7-17) mg/dL Creatinine 0.62 (0.52-1.04) mg/dL Est GFR (CKD-EPI)AfAm >90 (>60 ml/min/1.73 sqM) Est GFR (CKD-EPI)NonAf >90 (>60 ml/min/1.73 sqM) Glucose 136 H (74-99) mg/dL Calcium 10.2 (8.4-10.2) mg/dL Phosphorus 5.3 H (2.5-4.5) mg/dL Magnesium 1.5 L (1.6-2.3) mg/dL Total Bilirubin 0.3 (0.2-1.3) mg/dL AST 26 (14-36) U/L ALT 26 (4-34) U/L Alkaline Phosphatase 80 (38-126) U/L Total Protein 7.4 (6.3-8.2) g/dL Albumin 4.6 (3.5-5.0) g/dL Amylase 92 (30-110) U/L Lipase 209 (23-300) U/L Urine Color Urine Appearance (Clear) Urine pH (5.0-8.0) Ur Specific [place] (1.001-1.035) Urine Protein (Negative) Urine Glucose (UA) (Negative) Urine Ketones (Negative) Urine Blood (Negative) Urine Nitrite (Negative) Urine Bilirubin (Negative) Urine Urobilinogen (<2.0) mg/dL Ur Leukocyte Esterase (Negative) Urine RBC (0-5) /hpf Urine WBC (0-5) /hpf Ur Squamous Epith Cells (0-4) /hpf Urine Bacteria (None) /hpf Urine Opiates Screen (NotDetected) Ur Oxycodone Screen (NotDetected) Urine Methadone Screen (NotDetected) Ur Propoxyphene Screen (NotDetected) Ur Barbiturates Screen (NotDetected) U Tricyclic Antidepress (NotDetected) Ur Phencyclidine Scrn (NotDetected) Ur Amphetamines Screen (NotDetected) U Methamphetamines Scrn (NotDetected) U Benzodiazepines Scrn (NotDetected) Urine Cocaine Screen (NotDetected) U Marijuana (THC) Screen (NotDetected) Serum Alcohol <10 mg/dL 07/14/22 Range/Units 21:00 WBC (3.8-10.6) k/uL RBC (3.80-5.40) m/uL Hgb (11.4-16.0) gm/dL Hct (34.0-46.0) % MCV (80.0-100.0) fL MCH (25.0-35.0) pg MCHC (31.0-37.0) g/dL RDW (11.5-15.5) % Plt Count (150-450) k/uL MPV Neutrophils % % Lymphocytes % % Monocytes % % Eosinophils % % Basophils % % Neutrophils # (1.3-7.7) k/uL Lymphocytes # (1.0-4.8) k/uL Monocytes # (0-1.0) k/uL Eosinophils # (0-0.7) k/uL Basophils # (0-0.2) k/uL PT (9.0-12.0) sec INR (<1.2) Sodium (137-145) mmol/L Potassium (3.5-5.1) mmol/L Chloride (98-107) mmol/L Carbon Dioxide (22-30) mmol/L Anion Gap mmol/L BUN (7-17) mg/dL Creatinine (0.52-1.04) mg/dL Est GFR (CKD-EPI)AfAm (>60 ml/min/1.73 sqM) Est GFR (CKD-EPI)NonAf (>60 ml/min/1.73 sqM) Glucose (74-99) mg/dL Calcium (8.4-10.2) mg/dL Phosphorus (2.5-4.5) mg/dL Magnesium (1.6-2.3) mg/dL Total Bilirubin (0.2-1.3) mg/dL AST (14-36) U/L ALT (4-34) U/L Alkaline Phosphatase (38-126) U/L Total Protein (6.3-8.2) g/dL Albumin (3.5-5.0) g/dL Amylase (30-110) U/L Lipase (23-300) U/L Urine Color Colorless Urine Appearance Clear (Clear) Urine pH 6.5 (5.0-8.0) Ur Specific [place] 1.005 (1.001-1.035) Urine Protein Negative (Negative) Urine Glucose (UA) 4+ H (Negative) Urine Ketones Negative (Negative) Urine Blood Negative (Negative) Urine Nitrite Negative (Negative) Urine Bilirubin Negative (Negative) Urine Urobilinogen <2.0 (<2.0) mg/dL Ur Leukocyte Esterase Moderate H (Negative) Urine RBC 1 (0-5) /hpf Urine WBC 13 H (0-5) /hpf Ur Squamous Epith Cells 1 (0-4) /hpf Urine Bacteria Rare H (None) /hpf Urine Opiates Screen Not Detected (NotDetected) Ur Oxycodone Screen Not Detected (NotDetected) Urine Methadone Screen Not Detected (NotDetected) Ur Propoxyphene Screen Not Detected (NotDetected) Ur Barbiturates Screen Not Detected (NotDetected) U Tricyclic Antidepress Not Detected (NotDetected) Ur Phencyclidine Scrn Not Detected (NotDetected) Ur Amphetamines Screen Not Detected (NotDetected) U Methamphetamines Scrn Not Detected (NotDetected) U Benzodiazepines Scrn Not Detected (NotDetected) Urine Cocaine Screen Not Detected (NotDetected) U Marijuana (THC) Screen Not Detected (NotDetected) Serum Alcohol mg/dL Disposition Clinical Impression: Alcohol abuse with withdrawal Disposition: HOME SELF-CARE Instructions (If sedation given, give patient instructions): Alcohol Withdrawal (ED) Additional Instructions: Return to the emergency department with any new, worsening, or concerning symptoms. You can take the Ativan up to 3 times daily as needed for feelings of withdrawal such as shaking or agitation. Alternate with ibuprofen and Tylenol as needed for any headaches. Follow up with your primary care provider in 1-2 days. Prescriptions: LORazepam [Ativan] 0.5 mg PO BID PRN 3 Days #6 tab PRN Reason: Agitation Is patient prescribed a controlled substance at d/c from ED?: No Referrals: Joanne Aguayo MD [Primary Care Provider] - 1-2 days
[2022-07-14 21:02] LABS: Basophils # (A) 0.1 k/uL (0-0.2); Basophils % (A) 1 %; Eosinophils # (A) 0.1 k/uL (0-0.7); Eosinophils % (A) 1 %; HCT 48.2 % (34.0-46.0); HGB 16.1 gm/dL (11.4-16.0); Lymphocytes # (A) 2.2 k/uL (1.0-4.8); Lymphocytes % (A) 22 %; MCHC 33.4 g/dL (31.0-37.0); MCV 89.7 fL (80.0-100.0); Mean Platelet Volume 7.8; Monocytes # (A) 0.4 k/uL (0-1.0); Monocytes % (A) 4 %; Neutrophils # (A) 6.8 k/uL (1.3-7.7); Neutrophils % (A) 69 %; Platelet Count 247 k/uL (150-450); RBC 5.38 m/uL (3.80-5.40); RDW 14.4 % (11.5-15.5)
[2022-07-14 21:15] LABS: INR 0.9 (<1.2)
[2022-07-14 21:21] LABS: Appearance,Urine Clear (Clear); Bacteria,Urine Rare /hpf; Bilirubin,Urine Negative (Negative); Blood,Urine Negative (Negative); Color,Urine Colorless; Glucose,Urine (UA) 4+ (Negative); Ketones,Urine Negative (Negative); Leukocyte Esterase,Urine Moderate (Negative); Nitrite,Urine Negative (Negative); PH, Urine 6.5 (5.0-8.0); Protein,Urine Negative (Negative); RBC,Urine 1 /hpf (0-5); Specific Gravity,Urine 1.005 (1.001-1.035); Squamous Epithelial Cell,Urine 1 /hpf (0-4); Urobilinogen,Urine <2.0 mg/dL (<2.0); WBC,Urine 13 /hpf (0-5)
[2022-07-14 21:23] LABS: ALT 26 U/L (4-34); AST 26 U/L (14-36); African American GFR (CKD) >90 (>60 ml/min/1.73 sqM); Albumin 4.6 g/dL (3.5-5.0); Alcohol <10 mg/dL; Alkaline Phosphatase 80 U/L (38-126); Amylase 92 U/L (30-110); Anion Gap 10 mmol/L; Blood Urea Nitrogen 21 mg/dL (7-17); Calcium 10.2 mg/dL (8.4-10.2); Carbon Dioxide 26 mmol/L (22-30); Chloride 98 mmol/L (98-107); Glucose 136 mg/dL (74-99); Lipase 209 U/L (23-300); Magnesium 1.5 mg/dL (1.6-2.3); Non-African American GFR(CKD) >90 (>60 ml/min/1.73 sqM); Phosphorus 5.3 mg/dL (2.5-4.5); Potassium 4.1 mmol/L (3.5-5.1); Sodium 134 mmol/L (137-145); Total Bilirubin 0.3 mg/dL (0.2-1.3); Total Protein 7.4 g/dL (6.3-8.2)
[2022-07-14 21:39] LABS: Amphetamine Screen,Urine Not Detected (NotDetected); Barbiturate Screen,Urine Not Detected (NotDetected); Benzodiazepines Screen,Urine Not Detected (NotDetected); Cocaine Screen,Urine Not Detected (NotDetected); Methadone Screen, Urine Not Detected (NotDetected); Opiate Screen,Urine Not Detected (NotDetected); Oxycodone Screen, Urine Not Detected (NotDetected); Phencyclidine Screen,Urine Not Detected (NotDetected); Tricyclic Antidepressant,Urine Not Detected (NotDetected); Urn Cannabinoid Scrn Not Detected (NotDetected)
[2022-07-14] MEDS ORDERED: KETOROLAC 15 MG/ML 1 ML VIAL IVP STA (21:42)
[2022-07-14] MEDS ORDERED: FAMOTIDINE 20 MG/2 ML VIAL IV STA (21:42)
[2022-07-14] MEDS ORDERED: ACETAMINOPHEN TAB 500 MG TAB PO STA (23:12)
[2022-07-14] MEDS ORDERED: METOCLOPRAMIDE 5 MG/ML 2 ML VIAL IVP STA (23:12)
[2022-07-15 00:53] VITALS: BP 148/68; PULSE 90
[2022-07-15] MEDS ORDERED: THIAMINE 100 MG TAB PO SCH (09:00)
== END 2022-07-15 00:25 | disposition home or self-care (01) ==
LOC: EC 19:53
DX: F10.139 Alcohol abuse with withdrawal, unspecified (principal); J44.9 Chronic obstructive pulmonary disease, unspecified; E11.9 Type 2 diabetes mellitus without complications; I10 Essential (primary) hypertension; F31.9 Bipolar disorder, unspecified; F17.200 Nicotine dependence, unspecified, uncomplicated; F12.90 Cannabis use, unspecified, uncomplicated; Z88.8 Allergy status to other drugs, medicaments and biological substances; Z79.84 Long term (current) use of oral hypoglycemic drugs; Z79.899 Other long term (current) drug therapy
CPT/HCPCS: 99285 ×2; 96374 ×2; 96375 ×4; 96372 ×2; 96361 ×2; 36415; 80053; 82150; 83690; 83735; 84100; 85025; 85610; 81001; 80306; 87086; G0480; J2765; J3411; J2405; J1885; 80320

== ENCOUNTER 2023-06-17 05:11 | Inpatient (IN) | payer MEDICARE, OTHER ==
[2023-06-17 05:19] LABS: Glucose,Whole Blood 207 mg/dL (70-110)
[2023-06-17] MEDS ORDERED: SODIUM CHLORIDE 0.9% 1,000 ML IV ONE (05:19)
[2023-06-17] MEDS ORDERED: LORazepam 2 MG/ML INJ IV STA ×3 (05:19→08:17)
--- NOTE | 2023-06-17 05:20 | ED ---
General Adult HPI - General Chief complaint: Fall Stated complaint: Fall Time Seen by Provider: 06/17/23 05:13 Source: patient Mode of arrival: EMS Limitations: no limitations - History of Present Illness Initial comments: Patient is a 57-year-old woman brought by ambulance to have evaluation for altered mental status. The patient is roommate reportedly called EMS. There was a question whether the patient had fallen at home. The patient then was be having in a bizarre fashion. EMS states that on their arrival she was complaining of having pains but not able to state where. She was not able to tell them her last name. She was disoriented. On arrival here, the patient requesting help but not able to specify which she needs help with. She denied dyspnea. -: unknown Improves with: none Worsens with: none Associated Symptoms: confusion Treatments Prior to Arrival: none - Related Data Home Medications Medication Instructions Recorded Confirmed Acamprosate Calcium [Campral] 333 mg PO TID 04/18/22 06/17/23 Albuterol Sulfate [Albuterol 2 puff INHALATION RT-Q4H PRN 04/18/22 06/17/23 Sulfate Hfa] Canagliflozin [Invokana] 100 mg PO AC-BRKFST 04/18/22 06/17/23 Emtricitabine/Tenofov Alafenam 1 tab PO DAILY 04/18/22 06/17/23 [Descovy 200-25 mg Tablet] Fremanezumab-Vfrm [Ajovy Syringe] 225 mg SQ Q90D 04/18/22 06/17/23 Ipratropium-Albuterol Nebulize 3 ml INHALATION RT-TID PRN 04/18/22 06/17/23 [Duoneb 0.5 mg-3 mg/3 ml Soln] Loratadine [Claritin] 10 mg PO DAILY 04/18/22 06/17/23 Losartan [Cozaar] 25 mg PO DAILY 04/18/22 06/17/23 Nystatin 100,000 Unit/gm Powd 1 applic TOPICAL BID 04/18/22 06/17/23 [Mycostatin Powder] Raltegravir Potassium [Isentress] 800 mg PO HS 04/18/22 06/17/23 Ubrogepant [Ubrelvy] 100 mg PO BID PRN 04/18/22 06/17/23 busPIRone HCL [Buspar] 30 mg PO BID 04/18/22 06/17/23 lamoTRIgine [lamoTRIgine ER] 300 mg PO HS 04/18/22 06/17/23 metFORMIN HCL ER [Glucophage XR] 1,000 mg PO DAILY 04/18/22 06/17/23 sitaGLIPtin [Januvia] 100 mg PO DAILY 04/18/22 06/17/23 Nitroglycerin Sl Tabs [Nitrostat] 0.4 mg SL Q5M PRN 04/24/22 06/17/23 Omeprazole [PriLOSEC] 40 mg PO DAILY 06/17/23 06/17/23 Rosuvastatin [Crestor] 10 mg PO DAILY 06/17/23 06/17/23 Previous Rx's Medication Instructions Recorded Diltiazem Cd [Cardizem CD] 180 mg PO DAILY #30 cap 04/19/22 Ziprasidone [Geodon] 40 mg PO BID 15 Days #30 cap 06/23/23 Allergies Allergy/AdvReac Type Severity Reaction Status Date / Time propranolol [From Inderal LA] Allergy Anaphylaxis Verified 06/27/23 16:30 Review of Systems ROS Statement: Those systems with pertinent positive or pertinent negative responses have been documented in the HPI. ROS Other: All systems not noted in ROS Statement are negative. Limitations: ROS unobtainable due to patients medical condition Past Medical History Past Medical History: Chest Pain / Angina, COPD, Diabetes Mellitus, Hypertension Additional Past Medical History / Comment(s): HEP B, HIV,COVID History of Any Multi-Drug Resistant Organisms: None Reported Past Surgical History: Hernia Repair Past Anesthesia/Blood Transfusion Reactions: No Reported Reaction Past Psychological History: Bipolar Smoking Status: Current every day smoker Past Alcohol Use History: Abuse, Daily Past Drug Use History: Marijuana General Exam Limitations: no limitations General appearance: alert, in no apparent distress Head exam: Present: atraumatic, normocephalic Eye exam: Present: normal appearance, PERRL, EOMI. Absent: scleral icterus, conjunctival injection, nystagmus ENT exam: Present: mucous membranes dry Neck exam: Present: normal inspection, full ROM. Absent: tenderness, meningismus Respiratory exam: Present: rhonchi. Absent: respiratory distress, wheezes, rales, stridor, accessory muscle use Cardiovascular Exam: Present: regular rate, tachycardia, normal heart sounds. Absent: systolic murmur, diastolic murmur, rubs, gallop GI/Abdominal exam: Present: soft. Absent: distended, tenderness, guarding, rebound, rigid, mass Extremities exam: Present: normal inspection, normal capillary refill. Absent: pedal edema, calf tenderness Course Vital Signs 06/17/23 06/17/23 06/17/23 05:12 08:10 11:37 Temperature 98.7 F Pulse Rate 112 H 120 H Respiratory 22 22 Rate Blood Pressure 179/98 166/85 O2 Sat by Pulse 94 L 93 L Oximetry 06/17/23 06/17/23 06/17/23 13:04 15:59 18:00 Temperature 98.4 F Pulse Rate 119 H 116 H 100 Respiratory 18 19 19 Rate Blood Pressure 173/91 140/98 166/77 O2 Sat by Pulse 99 96 94 L Oximetry EKG Findings - EKG Results: EKG: interpreted by ERMD, sinus rhythm EKG shows: tachycardia - Blocks, [place], Hypertrophy, ST Abn: AV and intraventricular conduction: right bundle branch block (fixed/intermit tent, complete/incomplete) (Complete) QRS axis and voltage: indeterminate axis Medical Decision Making - Medical Decision Making The patient had CT of the brain and C-spine which I interpreted as negative for acute bony injury or intracranial hemorrhage. The patient had chest x-ray which I interpreted as negative for acute infiltrate, pneumothorax. Was pt. sent in by a medical professional or institution ([facility], [facility], urgent care, hospital, or longterm...) When possible be specific @ -[No] Did you speak to anyone other than the patient for history (EMS, parent, family, police, friend...)? What history was obtained from this source @ -[EMS did give history Did you review nursing and triage notes (agree or disagree)? Why? @ -[I reviewed and agree with nursing and triage notes] Were old charts reviewed (outside hosp., previous admission, EMS record, old EKG, old radiological studies, urgent care reports/EKG's, longterm records)? Report findings @ -[Yes old charts were reviewed] Differential Diagnosis (chest pain, altered mental status, abdominal pain women, abdominal pain men, vaginal bleeding, weakness, fever, dyspnea, syncope, headache, dizziness, GI bleed, back pain, seizure, CVA, palpatations, mental health, musculoskeletal)? @ -[Differential Altered Mental Status: Hypoglycemia, DKA, hypercapnia, ETOH, overdose, CO poisoning, trauma, myxedema coma, HTN encephalopathy, infection, encephalitis, psychosis, intercranial hemorrhage, hepatic encephalopathy, meningitis, CVA, this is not meant to be an all-inclusive list EKG interpreted by me (3pts min.). @ -[As above] X-rays interpreted by me (1pt min.). @ -[I interpreted as above CT interpreted by me (1pt min.). @ -[I interpreted as above U/S interpreted by me (1pt. min.). @ -[None done] What testing was considered but not performed or refused? (CT, X-rays, U/S, labs)? Why? @ -[None] What meds were considered but not given or refused? Why? @ -[None] Did you discuss the management of the patient with other professionals (professionals i.e. , PA, T[facility] MAN, lab, RT, psych nurse, social studies teacher, butter production supervisor, teacher, forest fire management officer, gearcase assembler)? Give summary @ -[Case is discussed with admitting physician and treatment recommendations are incorporated Was smoking cessation discussed for >3mins.? @ -[No] Was critical care preformed (if so, how long)? @ -[No] Were there social determinants of health that impacted care today? How? (Homelessness, low income, unemployed, alcoholism, drug addiction, transportation, low edu. Level, literacy, decrease access to med. care, custodial, rehab)? @ -[No] Was there de-escalation of care discussed even if they declined (Discuss DNR or withdrawal of care, Hospice)? DNR status @ -[No] What co-morbidities impacted this encounter? (DM, HTN, Smoking, COPD, CAD, Cancer, CVA, ARF, Chemo, Hep., AIDS, mental health diagnosis, sleep apnea, morbid obesity)? @ -[COPD, diabetes, HIV history Was patient admitted / discharged? Hospital course, mention meds given and route, prescriptions, significant lab abnormalities, going to OR and other pertinent info. @ -[This patient is a 57-year-old woman who is admitted after having probably fallen at home and having altered mental status. The initial workup not revealing exact etiology. The patient will be admitted to have further evaluation and treatment. In addition patient will have consultations. Undiagnosed new problem with uncertain prognosis? @ -[No] Drug Therapy requiring intensive monitoring for toxicity (Heparin, Nitro, Insulin, Cardizem)? @ -[No] Were any procedures done? @ -[No] Diagnosis/symptom? @ -[Fall Acute altered mental status Acute hyperglycemia Acute, or Chronic, or Acute on Chronic? @ -[Acute Uncomplicated (without systemic symptoms) or Complicated (systemic symptoms)? @ -[Uncomplicated Side effects of treatment? @ -[No] Exacerbation, Progression, or Severe Exacerbation? @ -[No] Poses a threat to life or bodily function? How? (Chest pain, [place], [place], pneumonia, PE, COPD, DKA, ARF, appy, cholecystitis, CVA, Diverticulitis, Homicidal, Suicidal, threat to staff... and all critical care pts) @ -[Undetermined at time of admission, further evaluation is required - Lab Data Result diagrams: 06/22/23 07:36 06/22/23 07:36 Lab Results 06/17/23 06/17/23 06/17/23 Range/Units 05:18 05:19 05:19 WBC 11.7 H (3.8-10.6) k/uL RBC 4.65 (3.80-5.40) m/uL Hgb 15.0 (11.4-16.0) gm/dL Hct 44.3 (34.0-46.0) % MCV 95.4 (80.0-100.0) fL MCH 32.3 (25.0-35.0) pg MCHC 33.8 (31.0-37.0) g/dL RDW 13.1 (11.5-15.5) % Plt Count 227 (150-450) k/uL MPV 7.4 Neutrophils % 88 % Lymphocytes % 6 % Monocytes % 4 % Eosinophils % 0 % Basophils % 0 % Neutrophils # 10.3 H (1.3-7.7) k/uL Lymphocytes # 0.8 L (1.0-4.8) k/uL Monocytes # 0.4 (0-1.0) k/uL Eosinophils # 0.0 (0-0.7) k/uL Basophils # 0.0 (0-0.2) k/uL PT 10.3 (10.0-12.5) sec INR 0.9 (<1.2) APTT 23.3 (22.0-30.0) sec Sodium (137-145) mmol/L Potassium (3.5-5.1) mmol/L Chloride (98-107) mmol/L Carbon Dioxide (22-30) mmol/L Anion Gap mmol/L BUN (7-17) mg/dL Creatinine (0.52-1.04) mg/dL Est GFR (CKD-EPI)AfAm (>60 ml/min/1.73 sqM) Est GFR (CKD-EPI)NonAf (>60 ml/min/1.73 sqM) Glucose (74-99) mg/dL POC Glucose (mg/dL) 207 H (70-110) mg/dL POC Glu Supervisor Treating And Pumping ID Tricia Small Plasma Lactic Acid Jonathan (0.7-2.0) mmol/L Calcium (8.4-10.2) mg/dL Total Bilirubin (0.2-1.3) mg/dL AST (14-36) U/L ALT (4-34) U/L Alkaline Phosphatase (38-126) U/L Ammonia (<30) umol/L Troponin I (0.000-0.034) ng/mL Total Protein (6.3-8.2) g/dL Albumin (3.5-5.0) g/dL Serum Alcohol mg/dL 06/17/23 06/17/23 06/17/23 Range/Units 05:19 05:19 05:19 WBC (3.8-10.6) k/uL RBC (3.80-5.40) m/uL Hgb (11.4-16.0) gm/dL Hct (34.0-46.0) % MCV (80.0-100.0) fL MCH (25.0-35.0) pg MCHC (31.0-37.0) g/dL RDW (11.5-15.5) % Plt Count (150-450) k/uL MPV Neutrophils % % Lymphocytes % % Monocytes % % Eosinophils % % Basophils % % Neutrophils # (1.3-7.7) k/uL Lymphocytes # (1.0-4.8) k/uL Monocytes # (0-1.0) k/uL Eosinophils # (0-0.7) k/uL Basophils # (0-0.2) k/uL PT (10.0-12.5) sec INR (<1.2) APTT (22.0-30.0) sec Sodium 132 L (137-145) mmol/L Potassium 3.9 (3.5-5.1) mmol/L Chloride 98 (98-107) mmol/L Carbon Dioxide 23 (22-30) mmol/L Anion Gap 11 mmol/L BUN 9 (7-17) mg/dL Creatinine 0.49 L (0.52-1.04) mg/dL Est GFR (CKD-EPI)AfAm >90 (>60 ml/min/1.73 sqM) Est GFR (CKD-EPI)NonAf >90 (>60 ml/min/1.73 sqM) Glucose 202 H (74-99) mg/dL POC Glucose (mg/dL) (70-110) mg/dL POC Glu Supervisor Treating And Pumping ID Plasma Lactic Acid Jonathan 1.3 (0.7-2.0) mmol/L Calcium 9.3 (8.4-10.2) mg/dL Total Bilirubin 0.5 (0.2-1.3) mg/dL AST 19 (14-36) U/L ALT 18 (4-34) U/L Alkaline Phosphatase 79 (38-126) U/L Ammonia <9 (<30) umol/L Troponin I <0.012 (0.000-0.034) ng/mL Total Protein 7.0 (6.3-8.2) g/dL Albumin 4.3 (3.5-5.0) g/dL Serum Alcohol <10 mg/dL Disposition Clinical Impression: Fall, Altered mental status Disposition: ADMITTED IP TO THIS HOSP Condition: Undetermined Is patient prescribed a controlled substance at d/c from ED?: No
[2023-06-17 05:37] LABS: Basophils % (A) 0 %; Eosinophils % (A) 0 %; HCT 44.3 % (34.0-46.0); Lymphocytes # (A) 0.8 k/uL (1.0-4.8); Lymphocytes % (A) 6 %; MCH 32.3 pg (25.0-35.0); MCHC 33.8 g/dL (31.0-37.0); MCV 95.4 fL (80.0-100.0); Mean Platelet Volume 7.4; Monocytes # (A) 0.4 k/uL (0-1.0); Monocytes % (A) 4 %; Neutrophils # (A) 10.3 k/uL (1.3-7.7); Neutrophils % (A) 88 %; Platelet Count 227 k/uL (150-450); RBC 4.65 m/uL (3.80-5.40); RDW 13.1 % (11.5-15.5); WBC 11.7 k/uL (3.8-10.6)
[2023-06-17 05:48] LABS: Lactic Acid, Venous 1.3 mmol/L (0.7-2.0)
[2023-06-17 05:49] LABS: ALT 18 U/L (4-34); AST 19 U/L (14-36); African American GFR (CKD) >90 (>60 ml/min/1.73 sqM); Albumin 4.3 g/dL (3.5-5.0); Alcohol <10 mg/dL; Alkaline Phosphatase 79 U/L (38-126); Anion Gap 11 mmol/L; Blood Urea Nitrogen 9 mg/dL (7-17); Calcium 9.3 mg/dL (8.4-10.2); Carbon Dioxide 23 mmol/L (22-30); Chloride 98 mmol/L (98-107); Glucose 202 mg/dL (74-99); Non-African American GFR(CKD) >90 (>60 ml/min/1.73 sqM); Potassium 3.9 mmol/L (3.5-5.1); Sodium 132 mmol/L (137-145); Total Bilirubin 0.5 mg/dL (0.2-1.3)
[2023-06-17 06:14] LABS: INR 0.9 (<1.2); Partial Thromboplastin Time 23.3 sec (22.0-30.0); Prothrombin Time 10.3 sec (10.0-12.5)
--- NOTE | 2023-06-17 07:15 | CT ---
EXAMINATION TYPE: CT brain cspine wo con CT DLP: 1445 mGycm, Automated exposure control for dose reduction was used. DATE OF EXAM: 06/17/2023 6:02 AM COMPARISON: 06/05/2020. CLINICAL INDICATION:Female, 57 years old with history of altered mental status; TECHNIQUE: Brain: Multiple axial CT images of the brain were obtained without IV contrast. Cspine: Axial CT images from the skull base to the inferior aspect of T2 we obtained without intraven ous contrast. Coronal and sagittal reformatted images were also reviewed. FINDINGS: Brain: Extra-axial spaces: No abnormal extra-axial fluid collections. Ventricular system: Within normal limits Cerebral parenchyma: No acute intraparenchymal hemorrhage or mass effect. The schneider-white junction is well differentiated. Cerebellum: Unremarkable. Mass effect: No evidence of midline shift. Intracranial vasculature: unremarkable Soft tissues: Normal. Calvarium/osseous structures: No depressed skull fracture. Paranasal sinuses and mastoid air cells: Clear. Visualized orbits: Orbital contents are intact. Cervical spine: Fracture: None. Osseous structures: Multilevel degenerative disc disease changes with endplate spurring and disc oste ophyte complex's. Vertebral alignment: Within normal limits. Spinal canal/Neural Foramina: No evidence of significant spinal canal narrowing. No evidence for sign ificant neural foraminal stenosis. Neck soft tissues: Prevertebral soft tissues are within normal limits. Other: The airway is patent. The lung apices are clear. IMPRESSION: 1. No acute intracranial process. 2. No evidence of cervical spine fracture. 3. Mild multilevel degenerative disc disease.
--- NOTE | 2023-06-17 07:17 | XR ---
EXAMINATION TYPE: XR chest 1V portable DATE OF EXAM: 06/17/2023 6:00 AM CLINICAL INDICATION:Female, 57 years old with history of altered mental status; [facility] COMPARISON: Chest radiographs from 05/11/2023. TECHNIQUE: XR chest 1V portable Frontal view of the chest. FINDINGS: Lungs/Pleura: There is no evidence of pleural effusion, focal consolidation, or pneumothorax. Pulmonary vascularity: Unremarkable. Heart/mediastinum: Cardiomediastinal silhouette is enlarged and stable. Musculoskeletal: No acute osseous pathology. Other findings: None IMPRESSION: Cardiomegaly and mild pulmonary vascular prominence. Correlate with BNP for congestive heart failure.
[2023-06-17] MEDS ORDERED: NALOXONE 0.4 MG/ML 1 ML VIAL IV PRN (07:25)
[2023-06-17] MEDS ORDERED: MAG HYDROX/AL HYDROX/SIMETH 30 ML CUP PO PRN (07:25)
[2023-06-17] MEDS ORDERED: THIAMINE 100 MG/ML 2 ML VIAL IM STA (07:28)
[2023-06-17] MEDS ORDERED: LORazepam 2 MG/ML INJ IV PRN (07:28)
[2023-06-17] MEDS ORDERED: SODIUM CHLORIDE 0.9% 1,000 ML IV SCH (07:30)
[2023-06-17 10:02] LABS: Amphetamine Screen,Urine Not Detected (NotDetected); Barbiturate Screen,Urine Not Detected (NotDetected); Benzodiazepines Screen,Urine Detected (NotDetected); Cocaine Screen,Urine Not Detected (NotDetected); Methadone Screen, Urine Not Detected (NotDetected); Opiate Screen,Urine Not Detected (NotDetected); Oxycodone Screen, Urine Not Detected (NotDetected); Phencyclidine Screen,Urine Not Detected (NotDetected); Tricyclic Antidepressant,Urine Not Detected (NotDetected); Urn Cannabinoid Scrn Not Detected (NotDetected)
[2023-06-17] MEDS ORDERED: IPRATROPIUM-ALBUTEROL 3 ML NEB INHALATION PRN (10:12)
[2023-06-17] MEDS ORDERED: ALBUTEROL NEBULIZED 2.5 MG/3 ML INHALATION PRN (10:12)
[2023-06-17] MEDS: FAMOTIDINE 20 MG TAB PO SCH ×2 (11:28→20:17)
[2023-06-17] MEDS: DILTIAZEM CD 180 MG CAP.ER.24H PO SCH (11:29)
[2023-06-17] MEDS: LOSARTAN 25 MG TAB PO SCH (11:29)
[2023-06-17] MEDS: PANTOPRAZOLE 40 MG TABLET PO SCH (11:29)
--- NOTE | 2023-06-17 12:22 | P.CNNES ---
History of Present Illness Consult date: 06/17/23 Requesting physician: Robert Zepeda Reason for Consult: Altered mental status History of Present Illness: Patient is a 57-year-old female who came to the hospital by ambulance nicker today at 5:11 AM for altered mental status. Patient at present is laying in the bed, very uncomfortable, rolling from [id number], appears to be in distress. Patient not able to provide any history. As per EMS flow sheet, when they arrived, patient was laying on her couch. Patient completed of severe head pain but unable to answer questions. Patient's roommate reported that she heard the patient fall 3 days ago in her apartment and believes she hit her head on the floor. Unknown if patient lost consciousness. Patient unable to report any pain other than her severe headache. Patient's roommate states the patient has been having a headache in the past 3 days and to light she has just been in severe pain and restless. The roommate mentioned that patient is on blood thinners and has vomited several times today and is not acting right. Patient normally is alert and oriented 4 but now is unable to answer any questions besides her name. Patient keeps on repeating "she doesn't know. Please help me. This isn't a migraine. I feel like I'm dying". No obvious trauma to the patient's head or neck upon inspection. Patient does have a cone eyes noted. Patient's skin was dry, warm inseams grayish in color. Patient unable to recall the fall and could not answer any questions regarding it. Patient reported dizziness and nausea. Once inside the ambulance, patient began to feel like she was going to vomit. Patient continues to roll [id number] on the stretcher restlessly and was yelling for help. Patient was given Zofran IV for nausea. Patient's vitals at the scene was blood pressure 190/99, pulse rate 109, respirations 22, saturation 96%. Blood glucose was 235 mg/dL Blood test shows WBC 11.7 hemoglobin 15.0, platelets 227. PT/PTT normal, sodium 132 potassium 3.9, normal renal, hepatic panel, troponin. Urine drug screen positive for benzodiazepine, but blood alcohol level negative. CT head revealed no acute intracranial process. I personally review CT head, agree with the findings. CT of the cervical spine revealed no evidence of cervical spine fracture. Mild multilevel degenerative disc disease. Chest x-ray revealed cardiomegaly and mild pulmonary vascular prominence. Correlate for BNP for congestive heart failure. Patient takes Geodon, Cozaar, Januvia, clomipramine, Descovy, BuSpar, campral, ubrelvy, metformin, Lamictal 300 mg at bedtime, Isentress, Invokana, Ajovy, Ca rdizem CD, Plavix 75 mg, omeprazole and Crestor 10 mg. Patient states everywhere hurts. Review of Systems Patient not providing any history. Not able to provide review of systems. Patient is hurting all over. Please refer to examination above. ROS unobtainable: due to mental status Past Medical History Past Medical History: Chest Pain / Angina, COPD, Diabetes Mellitus, Hypertension Additional Past Medical History / Comment(s): HEP B, HIV,COVID History of Any Multi-Drug Resistant Organisms: None Reported Past Surgical History: Hernia Repair Past Anesthesia/Blood Transfusion Reactions: No Reported Reaction Past Psychological History: Bipolar Smoking Status: Current every day smoker Past Alcohol Use History: Abuse, Daily Past Drug Use History: Marijuana Medications and Allergies Home Medications Medication Instructions Recorded Confirmed Type Acamprosate Calcium [Campral] 333 mg PO TID 04/18/22 06/17/23 History Albuterol Sulfate [Albuterol 2 puff INHALATION RT-Q4H PRN 04/18/22 06/17/23 History Sulfate Hfa] Canagliflozin [Invokana] 100 mg PO AC-BRKFST 04/18/22 06/17/23 History Emtricitabine/Tenofov Alafenam 1 tab PO DAILY 04/18/22 06/17/23 History [Descovy 200-25 mg Tablet] Fremanezumab-Vfrm [Ajovy Syringe] 225 mg SQ Q90D 04/18/22 06/17/23 History Ipratropium-Albuterol Nebulize 3 ml INHALATION RT-TID PRN 04/18/22 06/17/23 History [Duoneb 0.5 mg-3 mg/3 ml Soln] Loratadine [Claritin] 10 mg PO DAILY 04/18/22 06/17/23 History Losartan [Cozaar] 25 mg PO DAILY 04/18/22 06/17/23 History Nystatin 100,000 Unit/gm Powd 1 applic TOPICAL BID 04/18/22 06/17/23 History [Mycostatin Powder] Raltegravir Potassium [Isentress] 800 mg PO HS 04/18/22 06/17/23 History Ubrogepant [Ubrelvy] 100 mg PO BID PRN 04/18/22 06/17/23 History busPIRone HCL [Buspar] 30 mg PO BID 04/18/22 06/17/23 History clomiPRAMINE HCL 75 mg PO DAILY 04/18/22 06/17/23 History clomiPRAMINE HCL 150 mg PO HS 04/18/22 06/17/23 History lamoTRIgine [lamoTRIgine ER] 300 mg PO HS 04/18/22 06/17/23 History metFORMIN HCL ER [Glucophage XR] 1,000 mg PO DAILY 04/18/22 06/17/23 History sitaGLIPtin [Januvia] 100 mg PO DAILY 04/18/22 06/17/23 History ziprasidone HCL [Geodon] 80 mg PO BID 04/18/22 06/17/23 History Clopidogrel [Plavix] 75 mg PO DAILY #30 tab 04/19/22 06/17/23 Rx Diltiazem Cd [Cardizem CD] 180 mg PO DAILY #30 cap 04/19/22 06/17/23 Rx Nitroglycerin Sl Tabs [Nitrostat] 0.4 mg SL Q5M PRN 04/24/22 06/17/23 History Omeprazole [PriLOSEC] 40 mg PO DAILY 06/17/23 06/17/23 History Rosuvastatin [Crestor] 10 mg PO DAILY 06/17/23 06/17/23 History Allergies Allergy/AdvReac Type Severity Reaction Status Date / Time propranolol [From Inderal LA] Allergy Anaphylaxis Verified 06/17/23 09:35 Physical Examination - Vital Signs Vital Signs: Vital Signs Temp Pulse Resp BP Pulse Ox 06/17/23 08:10 120 H 22 166/85 94 L 06/17/23 05:12 98.7 F 112 H 22 179/98 Intake and Output 06/16/23 06/17/23 06/17/23 22:59 06:59 14:59 Other: Weight 72 kg Patient is a middle aged female, who appears older than her stated age. Patient has a slightly cushingoid features. Vision is a very big bruise over the left side of the chest below the axilla extending to the back of the chest. Patient is encephalopathic, restless, moving, rolling over from [id number]. She sometimes is sighing in morning. Patient is moaning, seeing "it's hurting", but cannot tell what is hurting. Patient says "I can't do it", "I can't help it", "I can't do this". Speech is clear. No obvious aphasia or dysarthria. She is taking off her gown, although still has diapers. Speech and language appears intact. Patient did not cooperate with examination. Patient could not name any object and then starts moaning because of some pain. Attention, concentration and fund of knowledge is all very limited. On cranial nerve examination, pupils are equal, round and reacting to light, visual quezada could not be tested. Patient moves her eyes either side and no obvious nystagmus. Face is symmetric, she would not protrude her tongue out. Saying "I can't do it". Lower cranial nerves could not be tested. Hearing appears normal. On muscle strength testing, patient is moving all 4 extremity is normally. She is rolling in the bed [id number]. Her trimming machine set up operator was equal. Patient seems to be moving her legs very normally, trying to reposition herself. The strength is most likely normal in the arms and legs. She did not cooperate with the rest of the examination. Deep tendon reflexes are symme2+ all over, plantars are withdrawal. Sensory to touch could not be assessed. Patient does withdraw to painful stimuli bilaterally. Cerebellar functions could not be tested. She does move her extremities fairly well, does not appear ataxic on gross movement. Tone and bulk of muscles normal. Gait deferred.. On general examination, there is no carotid bruit or murmur, S1-S2 audible. Chest is clear on consultation. Abdomen is soft nontender. No organomegaly, bowel sounds present. Peripheral pulses are present. No peripheral edema. Her mouth is dry. Results - Laboratory Findings CBC and BMP: 06/17/23 05:19 06/17/23 05:19 Abnormal Lab Findings: Abnormal Labs 06/17/23 06/17/23 06/17/23 05:18 05:19 05:19 WBC 11.7 H Neutrophils # 10.3 H Lymphocytes # 0.8 L Sodium 132 L Creatinine 0.49 L Glucose 202 H POC Glucose (mg/dL) 207 H U Benzodiazepines Scrn 06/17/23 09:30 WBC Neutrophils # Lymphocytes # Sodium Creatinine Glucose POC Glucose (mg/dL) U Benzodiazepines Scrn Detected H Assessment and Plan Assessment: * Altered mental status, probably toxic metabolic encephalopathy. Rule out overdose on any medication. Exact cause remains uncertain. * HIV-positive * History of hepatitis C * COPD * Diabetes * Hypertension * Hyperlipidemia * Tobacco use * Bipolar disorder, per history. Plan: * Check EEG to evaluate for any encephalopathy, rule out epileptiform activity. * Lumbar puncture cannot be performed because patient is on Plavix. * B12, folate, TSH, hemoglobin A1c, ammonia. * Consider ID consultation for HIV. * Psychiatry also following. * Dr. Tesfaye Cuenca Will resume neurology service for morning. Thank you for the consult.
[2023-06-17] MEDS: THIAMINE 500 MG in SODIUM CHLORIDE 0.9% 100 ML IVPB SCH ×2 (13:10→20:13)
[2023-06-17] MEDS: LORazepam 2 MG/ML INJ IV PRN ×3 (13:12→23:43)
--- NOTE | 2023-06-17 13:13 | P.HPIM ---
History of Present Illness H&P Date: 06/17/23 History of present illness; patient is a 57-year-old lady with past medical his tory significant for COPD, hypertension, diabetes mellitus, hepatitis B, HIV presented to the ER for altered mental status and fall. History is very limited because of patient being a poor historian. EMS was called to patient's house by roommate. Patient apparently had fallen at home. Patient was acting very confused. Patient was following commands but was erratic. There was no complain of any chest pain. Patient was complaining of generalized pain but could not pinpoint where she was hurting. There was no complain of any fever or chills. No current nausea, vomiting abdominal pain. Initial lab work done in the ER showed WBC 11.7, hemoglobin 15, platelet count 227, sodium 132, potassium 3.9, chloride 98, BUN 9, creatinine 0.49, glucose 202, AST 19, AST 18, ammonia less than 9, Urine drug screen positive for benzodiazepines EKG done in the ER showed heart rate of 109 , no ST segment elevation or depression seen, no T-wave inversions seen. Chest x-ray done in the ER showed cardiomegaly and mild pulmonary vascular prominence CT head done showed no acute intracranial process CT cervical spine negative for evidence of cervical spine fracture Patient admitted to internal medicine service REVIEW OF SYSTEMS: Review of systems cannot be obtained as patient is obtunded PHYSICAL EXAMINATION: GENERAL: The patient is obtunded, looks in acute distress, rolling from one side to another in the bed HEENT: Pupils are round and equally reacting to light. EOMI. No scleral icterus. No conjunctival pallor. Normocephalic, atraumatic. No pharyngeal erythema. No thyromegaly. CARDIOVASCULAR: S1 and S2 present. No murmurs, rubs, or gallops. PULMONARY: Chest is clear to auscultation, no wheezing or crackles. ABDOMEN: Soft, nontender, nondistended, normoactive bowel sounds. No palpable organomegaly. MUSCULOSKELETAL: No joint swelling or deformity. EXTREMITIES: No cyanosis, clubbing, or pedal edema. NEUROLOGICAL: Moving All extremities SKIN: Big bruise on left side of back Assessment and plan Acute metabolic encephalopathy Fall History of COPD History of hypertension History of diabetes mellitus History of HIV History of hepatitis B Monitor vital signs Monitor CBC Monitor CMP Fall precautions Delirium precaution Avoid any narcotics and sedatives at this time Continue IV fluids Continue antiemetics EEG ordered Neurologyconsulted Psychiatry consulted Resume home meds Labs and medication were reviewed.. Continue same treatment. Continue with symptomatic treatment. Resume home medication. Monitor labs and vitals. DVT and GI prophylaxis. Further recommendations as per clinical course of the patient Dictation was produced using [employer] dictation software. please excuse any grammatical, word or spelling errors. Past Medical History Past Medical History: Chest Pain / Angina, COPD, Diabetes Mellitus, Hypertension Additional Past Medical History / Comment(s): HEP B, HIV,COVID History of Any Multi-Drug Resistant Organisms: None Reported Past Surgical History: Hernia Repair Past Anesthesia/Blood Transfusion Reactions: No Reported Reaction Past Psychological History: Bipolar Smoking Status: Current every day smoker Past Alcohol Use History: Abuse, Daily Past Drug Use History: Marijuana Medications and Allergies Home Medications Medication Instructions Recorded Confirmed Type Acamprosate Calcium [Campral] 333 mg PO TID 04/18/22 06/17/23 History Albuterol Sulfate [Albuterol 2 puff INHALATION RT-Q4H PRN 04/18/22 06/17/23 History Sulfate Hfa] Canagliflozin [Invokana] 100 mg PO AC-BRKFST 04/18/22 06/17/23 History Emtricitabine/Tenofov Alafenam 1 tab PO DAILY 04/18/22 06/17/23 History [Descovy 200-25 mg Tablet] Fremanezumab-Vfrm [Ajovy Syringe] 225 mg SQ Q90D 04/18/22 06/17/23 History Ipratropium-Albuterol Nebulize 3 ml INHALATION RT-TID PRN 04/18/22 06/17/23 History [Duoneb 0.5 mg-3 mg/3 ml Soln] Loratadine [Claritin] 10 mg PO DAILY 04/18/22 06/17/23 History Losartan [Cozaar] 25 mg PO DAILY 04/18/22 06/17/23 History Nystatin 100,000 Unit/gm Powd 1 applic TOPICAL BID 04/18/22 06/17/23 History [Mycostatin Powder] Raltegravir Potassium [Isentress] 800 mg PO HS 04/18/22 06/17/23 History Ubrogepant [Ubrelvy] 100 mg PO BID PRN 04/18/22 06/17/23 History busPIRone HCL [Buspar] 30 mg PO BID 04/18/22 06/17/23 History clomiPRAMINE HCL 75 mg PO DAILY 04/18/22 06/17/23 History clomiPRAMINE HCL 150 mg PO HS 04/18/22 06/17/23 History lamoTRIgine [lamoTRIgine ER] 300 mg PO HS 04/18/22 06/17/23 History metFORMIN HCL ER [Glucophage XR] 1,000 mg PO DAILY 04/18/22 06/17/23 History sitaGLIPtin [Januvia] 100 mg PO DAILY 04/18/22 06/17/23 History ziprasidone HCL [Geodon] 80 mg PO BID 04/18/22 06/17/23 History Clopidogrel [Plavix] 75 mg PO DAILY #30 tab 04/19/22 06/17/23 Rx Diltiazem Cd [Cardizem CD] 180 mg PO DAILY #30 cap 04/19/22 06/17/23 Rx Nitroglycerin Sl Tabs [Nitrostat] 0.4 mg SL Q5M PRN 04/24/22 06/17/23 History Omeprazole [PriLOSEC] 40 mg PO DAILY 06/17/23 06/17/23 History Rosuvastatin [Crestor] 10 mg PO DAILY 06/17/23 06/17/23 History Allergies Allergy/AdvReac Type Severity Reaction Status Date / Time propranolol [From Inderal LA] Allergy Anaphylaxis Verified 06/17/23 09:35 Physical Exam Vitals: Vital Signs Temp Pulse Resp BP Pulse Ox 06/17/23 08:10 120 H 22 166/85 94 L 06/17/23 05:12 98.7 F 112 H 22 179/98 Intake and Output 06/16/23 06/17/23 06/17/23 22:59 06:59 14:59 Other: Weight 72 kg Results CBC & Chem 7: 06/17/23 05:19 06/17/23 05:19 Labs: Abnormal Lab Results - Last 24 Hours (Table) 06/17/23 06/17/23 06/17/23 Range/Units 05:18 05:19 05:19 WBC 11.7 H (3.8-10.6) k/uL Neutrophils # 10.3 H (1.3-7.7) k/uL Lymphocytes # 0.8 L (1.0-4.8) k/uL Sodium 132 L (137-145) mmol/L Creatinine 0.49 L (0.52-1.04) mg/dL Glucose 202 H (74-99) mg/dL POC Glucose (mg/dL) 207 H (70-110) mg/dL
[2023-06-17] MEDS: DEXTROSE 5%-0.45% NACL 1,000 ML IV SCH ×2 (14:30→19:58)
--- NOTE | 2023-06-17 14:54 | P.CN ---
Psychiatric Consult - . Consult date: 06/17/23 Consult:: 06/17/23 14:42 This psychiatric assessment on Genevieve who is a 57-year-old female with a history of bipolar disorder and alcohol use disorder Patient also has significant medical issues that include being HIV positive, history of hepatitis C, COPD, diabetes mellitus type 2, hypertension Hyperlipidemia tobacco use Patient also is on multiple psychotropic medications that includeGeodon, Cozaar, Januvia, clomipramine, Descovy, BuSpar, campral, ubrelvy, metformin, Lamictal 300 mg at bedtime, Isentress, Invokana, Ajovy, Cardizem CD, Plavix 75 mg, omeprazole and Crestor 10 mg. Patient at present is laying in the bed, very uncomfortable, rolling from [id number], appears to be in distress. Patient not able to provide any history. Collateral information available chart: Patient is a 57-year-old female who came to the hospital by ambulance land classifier today at 5:11 AM for altered mental status s per EMS flow sheet, when they arrived, patient was laying on her couch. Patient completed of severe head pain but unable to answer questions. Patient's roommate reported that she heard the patient fall 3 days ago in her apartment and believes she hit her head on the floor. Unknown if patient lost consciousness. Patient unable to report any pain other than her severe headache. Patient's roommate states the patient has been having a headache in the past 3 days and to light she has just been in severe pain and restless. The roommate mentioned that patient is on blood thinners and has vomited several times today and is not acting right. Patient normally is alert and oriented 4 but now is unable to answer any questions besides her name. Patient keeps on repeating "she doesn't know. Please help me. This isn't a migraine. I feel like I'm dying". No obvious trauma to the patient's head or neck upon inspection. Patient does have a cone eyes noted. Patient's skin was dry, warm inseams grayish in color. Patient unable to recall the fall and could not answer any questions regarding it. Patient reported dizziness and nausea. Once inside the ambulance, patient began to feel like she was going to vomit. Patient continues to roll [id number] on the stretcher restlessly and was yelling for help. Patient was given Zofran IV for nausea. Patient's vitals at the scene was blood pressure 190/99, pulse rate 109, respirations 22, saturation 96%. Blood glucose was 235 mg/dL Blood test shows WBC 11.7 hemoglobin 15.0, platelets 227. PT/PTT normal, sodium 132 potassium 3.9, normal renal, hepatic panel, troponin. Urine drug screen positive for benzodiazepine, but blood alcohol level negative. CT head revealed no acute intracranial process. I personally review CT head, agree with the findings. CT of the cervical spine revealed no evidence of cervical spine fracture. Mild multilevel degenerative disc disease. Chest x-ray revealed cardiomegaly and mild pulmonary vascular prominence. Correlate for BNP for congestive heart failure. Review of Systems Patient not providing any history. Not able to provide review of systems. Patient is hurting all over. Please refer to examination above. ROS unobtainable: due to mental status Past Medical History Past Medical History: Chest Pain / Angina, COPD, Diabetes Mellitus, Hypertension Additional Past Medical History / Comment(s): HEP B, HIV,COVID History of Any Multi-Drug Resistant Organisms: None Reported Past Surgical History: Hernia Repair Past Anesthesia/Blood Transfusion Reactions: No Reported Reaction Past Psychological History: Bipolar Smoking Status: Current every day smoker Past Alcohol Use History: Abuse, Daily Past Drug Use History: Marijuana And in fact several visits to the ER in the past for alcohol use disorder the last being in June of this year where she was hospitalized for detox 06/17/23 06/17/23 06/17/23 05:18 05:19 05:19 WBC 11.7 H Neutrophils # 10.3 H Lymphocytes # 0.8 L Sodium 132 L Creatinine 0.49 L Glucose 202 H POC Glucose (mg/dL) 207 H U Benzodiazepines Scrn Patient was not positive for alcohol use Neuro work includes EEG to evaluate for any encephalopathy, rule out epileptiform activity. Lumbar puncture cannot be performed because patient is on Plavix. B12, folate, TSH, hemoglobin A1c, ammonia. Consider ID consultation for HIV. Mental Status Exam: General Appearance: Patient is a middle aged female, who appears older than her stated age. Patient has a slightly cushingoid features. Behavior: .restless, moving, rolling over from [id number]. She sometimes is sighing Speech: Patient's speech is spontaneous, rapid, rambling and mumbling,No obvious aphasia or dysarthria. Mood/Affect: Anxious Patient is moaning, seeing "it's hurting", but cannot tell what is hurting. Patient says "I can't do it", "I can't help it", "I can't do this" Suicidality/Homicidality: She is unable to engage in any conversation Patient neither endorses or denies suicidal or homicidal ideation. Perceptions: Unable to assess. Though content/process: , gross disorganization. Agitated and restless Memory and concentration: concentration continues to be poor. Judgment and insight: Poor Cognitively markedly impaired Diagnostic impression: Major neurocognitive disorder/delirium Rule out toxic metabolic encephalopathy HIV-positive Plan: Acute with a neurological recommendations for further workup including infectious diseases consult Psychiatry will continue to monitor for supportive care Will hold off on all the psychotropic medications at this time Of agitation and may continue to use Haldol 1-5 mg by mouth or IM every 4-6 hours for severe agitation and/or lorazepam 1-2 mg IM or by mouth every 4-6 hours when necessary We'll follow this patient along with you Thank you very much for your kind referral and prescription to contact me if any further questions Mauri Young M.D.
[2023-06-17] MEDS ORDERED: HALOPERIDOL LACTATE 5 MG/ML 1 ML VIAL IM PRN (14:55)
[2023-06-17 20:11] LABS: Appearance,Urine Clear (Clear); Bilirubin,Urine Negative (Negative); Blood,Urine Negative (Negative); Color,Urine Colorless; Glucose,Urine (UA) 4+ (Negative); Ketones,Urine 1+ (Negative); Leukocyte Esterase,Urine Negative (Negative); Nitrite,Urine Negative (Negative); Protein,Urine Trace (Negative); Specific Gravity,Urine 1.018 (1.001-1.035); Urobilinogen,Urine <2.0 mg/dL (<2.0)
[2023-06-17] MEDS: busPIRone HCl 10 MG TAB PO SCH (20:17)
[2023-06-17] MEDS: KETOROLAC 15 MG/ML 1 ML VIAL IVP PRN (23:56)
[2023-06-18] MEDS: THIAMINE 500 MG in SODIUM CHLORIDE 0.9% 100 ML IVPB SCH ×3 (03:21→20:18)
[2023-06-18] MEDS: DEXTROSE 5%-0.45% NACL 1,000 ML IV SCH ×3 (03:23→20:19)
[2023-06-18] MEDS: LORazepam 2 MG/ML INJ IV PRN ×3 (03:27→22:20)
[2023-06-18] MEDS: KETOROLAC 15 MG/ML 1 ML VIAL IVP PRN ×4 (05:39→22:07)
[2023-06-18] MEDS ORDERED: CLOPIDOGREL 75 MG TAB PO SCH (09:00)
[2023-06-18] MEDS ORDERED: THIAMINE 100 MG TAB PO SCH (09:00)
[2023-06-18] MEDS: DILTIAZEM CD 180 MG CAP.ER.24H PO SCH (10:50)
[2023-06-18] MEDS: ATORVASTATIN 20 MG TAB PO SCH (10:50)
[2023-06-18] MEDS: busPIRone HCl 10 MG TAB PO SCH ×2 (10:50→20:19)
[2023-06-18] MEDS: PANTOPRAZOLE 40 MG TABLET PO SCH (10:51)
[2023-06-18] MEDS: FAMOTIDINE 20 MG TAB PO SCH ×2 (10:51→20:19)
[2023-06-18] MEDS: LOSARTAN 25 MG TAB PO SCH (10:51)
[2023-06-18] MEDS: LINAGLIPTIN 5 MG TABLET PO SCH (10:51)
[2023-06-18] MEDS: haloperidoL 5 MG TAB PO PRN ×2 (12:37→18:25)
--- NOTE | 2023-06-18 13:33 | P.PN ---
Subjective Progress Note Date: 06/18/23 patient is a 57-year-old lady with past medical history significant for COPD, hypertension, diabetes mellitus, hepatitis B, HIV presented to the ER for altered mental status and fall. History is very limited because of patient being a poor historian. EMS was called to patient's house by roommate. Patient apparently had fallen at home. Patient was acting very confused. Patient was following commands but was erratic. There was no complain of any chest pain. Patient was complaining of generalized pain but could not pinpoint where she was hurting. There was no complain of any fever or chills. No current nausea, vomiting abdominal pain. Initial lab work done in the ER showed WBC 11.7, hemoglobin 15, platelet count 227, sodium 132, potassium 3.9, chloride 98, BUN 9, creatinine 0.49, glucose 202, AST 19, AST 18, ammonia less than 9, Urine drug screen positive for benzodiazepines EKG done in the ER showed heart rate of 109 , no ST segment elevation or depression seen, no T-wave inversions seen. Chest x-ray done in the ER showed cardiomegaly and mild pulmonary vascular prominence CT head done showed no acute intracranial process CT cervical spine negative for evidence of cervical spine fracture Patient admitted to internal medicine service 06/18. Patient seen and examined. According to nursing staff patient is more awake, she keeps saying that she is in pain, unable to maintain a conversation. REVIEW OF SYSTEMS: Review of systems cannot be obtained patient is confused PHYSICAL EXAMINATION: GENERAL: The patient is alert to self, keeps rolling in the bed HEENT: Pupils are round and equally reacting to light. EOMI. No scleral icterus. No conjunctival pallor. Normocephalic, atraumatic. No pharyngeal erythema. No thyromegaly. CARDIOVASCULAR: S1 and S2 present. No murmurs, rubs, or gallops. PULMONARY: Chest is clear to auscultation, no wheezing or crackles. ABDOMEN: Soft, nontender, nondistended, normoactive bowel sounds. No palpable organomegaly. MUSCULOSKELETAL: No joint swelling or deformity. EXTREMITIES: No cyanosis, clubbing, or pedal edema. NEUROLOGICAL: Moving all extremities, speech is not slurred SKIN: Bruising seen on the left side of chest and back Assessment and plan Acute metabolic encephalopathy Fall History of COPD History of hypertension History of diabetes mellitus History of HIV History of hepatitis B Monitor vital signs Monitor CBC Monitor CMP Fall precautions Delirium precaution Avoid any narcotics and sedatives at this time Continue IV fluids Continue antiemetics EEG ordered Neurology consulted Psych evaluated the patient recommended the following Will hold off on all the psychotropic medications at this time Of agitation and may continue to use Haldol 1-5 mg by mouth or IM every 4-6 hours for severe agitation and/or lorazepam 1-2 mg IM or by mouth every 4-6 hours when necessary Neurology following Labs and medication were reviewed.. Continue same treatment. Continue with symptomatic treatment. Resume home medication. Monitor labs and vitals. DVT and GI prophylaxis. Further recommendations as per clinical course of the patient Dictation was produced using [employer] dictation software. please excuse any grammatical, word or spelling errors. Objective - Vital Signs Vital signs: Vital Signs Temp 98.2 F 06/18/23 07:15 Pulse 108 H 06/18/23 07:15 Resp 28 H 06/18/23 07:15 BP 148/83 06/18/23 07:15 Pulse Ox 93 L 06/18/23 08:47 FiO2 Intake & Output 06/17/23 06/18/23 06/18/23 18:59 06:59 18:59 Intake Total 120 Output Total 600 Balance -480 Weight 72 kg Intake: Oral 120 Output: Urine 600 Other: Voiding Method Indwelling Catheter - Labs CBC & Chem 7: 06/17/23 05:19 06/17/23 05:19 Labs: Abnormal Lab Results - Last 24 Hours (Table) 06/17/23 06/17/23 06/17/23 Range/Units 09:30 12:51 12:51 Hemoglobin A1c 6.5 H (<=6.0) % C-Reactive Protein (0.00-0.80) mg/dL TSH 0.264 L (0.350-5.500) UIU/ML Urine Protein Trace H (Negative) Urine Glucose (UA) 4+ H (Negative) Urine Ketones 1+ H (Negative) 06/17/23 Range/Units 13:07 Hemoglobin A1c (<=6.0) % C-Reactive Protein 1.40 H (0.00-0.80) mg/dL TSH (0.350-5.500) UIU/ML Urine Protein (Negative) Urine Glucose (UA) (Negative) Urine Ketones (Negative)
--- NOTE | 2023-06-18 18:00 | P.CONS ---
History of Present Illness - Reason for Consult Consult date: 06/17/23 AMS, agitation, HIV positive Requesting physician: Brianna Toscano - Chief Complaint Mental status changes x 1 day - History of Present Illness Patient is a 57-year-old female with a past medical history significant for COPD diabetes mellitus hypertension HIV for the patient is currently on Isentress and Descovy patient last blood work for HIV was on 04/11/2023 with the patient did have a CD4 count of 1602 at the patient is pretty compliant with her treatment patient presented to [facility] ER early this morning for evaluation of mental status changes patient roommate reportedly called EMS and was a question the patient has fallen at home patient was behaving in a bizarre fashion on arrival they made the patient complaining of having pain but was not able to tell exactly what the pain was with the same with the patient was brought into the hospital on arrival to the ER the patient was afebrile and no fever have recorded subsequently patient was tachycardic but not hypotensive or significant hypoxemia patient did have vital of 11.7 creatinine 0.49 high limits of the normal UA has been negative urine testing was positive for benzo serum alcohol was less than 10 [address] did have a [address] of the head and cervical spine no acute intracranial process no evidence of cervical spine fracture patient did have a chest x-ray cardiomegaly with mild pulmonary vascular prominence infectious he was consulted because of history of HIV and question of possible infectious etiology Review of Systems Positive points has been mentioned in HPI complete review could not be obtained because of his underlying mental status Past Medical History Past Medical History: Chest Pain / Angina, COPD, Diabetes Mellitus, Hypertension Additional Past Medical History / Comment(s): HEP B, HIV,COVID History of Any Multi-Drug Resistant Organisms: None Reported Past Surgical History: Hernia Repair Past Anesthesia/Blood Transfusion Reactions: No Reported Reaction Past Psychological History: Bipolar Smoking Status: Current every day smoker Past Alcohol Use History: Abuse, Daily Past Drug Use History: Marijuana Medications and Allergies Home Medications Medication Instructions Recorded Confirmed Type Acamprosate Calcium [Campral] 333 mg PO TID 04/18/22 06/17/23 History Albuterol Sulfate [Albuterol 2 puff INHALATION RT-Q4H PRN 04/18/22 06/17/23 History Sulfate Hfa] Canagliflozin [Invokana] 100 mg PO AC-BRKFST 04/18/22 06/17/23 History Emtricitabine/Tenofov Alafenam 1 tab PO DAILY 04/18/22 06/17/23 History [Descovy 200-25 mg Tablet] Fremanezumab-Vfrm [Ajovy Syringe] 225 mg SQ Q90D 04/18/22 06/17/23 History Ipratropium-Albuterol Nebulize 3 ml INHALATION RT-TID PRN 04/18/22 06/17/23 History [Duoneb 0.5 mg-3 mg/3 ml Soln] Loratadine [Claritin] 10 mg PO DAILY 04/18/22 06/17/23 History Losartan [Cozaar] 25 mg PO DAILY 04/18/22 06/17/23 History Nystatin 100,000 Unit/gm Powd 1 applic TOPICAL BID 04/18/22 06/17/23 History [Mycostatin Powder] Raltegravir Potassium [Isentress] 800 mg PO HS 04/18/22 06/17/23 History Ubrogepant [Ubrelvy] 100 mg PO BID PRN 04/18/22 06/17/23 History busPIRone HCL [Buspar] 30 mg PO BID 04/18/22 06/17/23 History lamoTRIgine [lamoTRIgine ER] 300 mg PO HS 04/18/22 06/17/23 History metFORMIN HCL ER [Glucophage XR] 1,000 mg PO DAILY 04/18/22 06/17/23 History sitaGLIPtin [Januvia] 100 mg PO DAILY 04/18/22 06/17/23 History Diltiazem Cd [Cardizem CD] 180 mg PO DAILY #30 cap 04/19/22 06/17/23 Rx Nitroglycerin Sl Tabs [Nitrostat] 0.4 mg SL Q5M PRN 04/24/22 06/17/23 History Omeprazole [PriLOSEC] 40 mg PO DAILY 06/17/23 06/17/23 History Rosuvastatin [Crestor] 10 mg PO DAILY 06/17/23 06/17/23 History Ziprasidone [Geodon] 40 mg PO BID 15 Days #30 cap 06/23/23 Rx Allergies Allergy/AdvReac Type Severity Reaction Status Date / Time propranolol [From Inderal LA] Allergy Anaphylaxis Verified 06/17/23 09:35 Physical Exam Vitals: Vital Signs Temp Pulse Resp BP Pulse Ox 06/17/23 11:37 93 L 06/17/23 08:10 120 H 22 166/85 94 L 06/17/23 05:12 98.7 F 112 H 22 179/98 Intake and Output 06/16/23 06/17/23 06/17/23 22:59 06:59 14:59 Other: Weight 72 kg GENERAL DESCRIPTION: Middle-aged female lying in bed, no distress. No tachypnea or accessory muscle of respiration use. HEENT: Shows Pallor , no scleral icterus. Oral mucous membrane is dry. NECK: Trachea central, no thyromegaly. LUNGS: Unlabored breathing. Clear to auscultation anteriorly. No wheeze or crackle. HEART: S1, S2, regular rate and rhythm. No loud murmur ABDOMEN: Soft, no tenderness , EXTREMITIES: No edema of feet. SKIN: No rash, no masses palpable. NEUROLOGICAL: The patient is lethargic orientation could not be determined no neck rigidity Results CBC & Chem 7: 06/22/23 07:36 06/22/23 07:36 Labs: Abnormal Lab Results - Last 24 Hours (Table) 06/17/23 06/17/23 06/17/23 Range/Units 05:18 05:19 05:19 WBC 11.7 H (3.8-10.6) k/uL Neutrophils # 10.3 H (1.3-7.7) k/uL Lymphocytes # 0.8 L (1.0-4.8) k/uL Sodium 132 L (137-145) mmol/L Creatinine 0.49 L (0.52-1.04) mg/dL Glucose 202 H (74-99) mg/dL POC Glucose (mg/dL) 207 H (70-110) mg/dL U Benzodiazepines Scrn (NotDetected) 06/17/23 Range/Units 09:30 WBC (3.8-10.6) k/uL Neutrophils # (1.3-7.7) k/uL Lymphocytes # (1.0-4.8) k/uL Sodium (137-145) mmol/L Creatinine (0.52-1.04) mg/dL Glucose (74-99) mg/dL POC Glucose (mg/dL) (70-110) mg/dL U Benzodiazepines Scrn Detected H (NotDetected) Assessment and Plan (1) Encephalopathy acute Status: Acute Code(s): G93.40 - ENCEPHALOPATHY, UNSPECIFIED SNOMED Code(s): 34534779 (2) HIV (human immunodeficiency virus infection) Status: Acute Code(s): B20 - HUMAN IMMUNODEFICIENCY VIRUS [HIV] DISEASE SNOMED Code(s): 08164327 Plan: 1patient presented to hospital mental status changes questionably drug overdose as the patient urine is positive for benzos patient currently not running any fever white count no significant elevated clinic suspicion low for infectious etiology 2patient with HIV very well-controlled with a last CD4 count of 1602 that will make any opportunistic infection less likely 3we will check her blood cultures CRP and procalcitonin 4hold on t Isentress and Descovy till the patient wakes up and start taking her medication We will follow on clinical condition and cultures to further adjust medication if needed Time with Patient: Greater than 30
--- NOTE | 2023-06-18 18:03 | P.PN ---
Subjective Progress Note Date: 06/18/23 Principal diagnosis: Reason for follow-up is HIV Patient is a 57-year-old female with a past medical history significant for COPD diabetes mellitus hypertension HIV for the patient is currently on Isentress and Descovy patient last blood work for HIV was on 04/11/2023 with the patient did have a CD4 count of 1602 at the patient i brought to the hospital for evaluation of evaluation of mental status changes and question of drug overdose. On today's evaluation that is 06/18/2023 the patient remains to be afebrile the patient is hemodynamically stable the patient is slightly more awake and alert and upset some simple questions by the nursing staff no vomiting diarrhea or any other changes reported by the nursing staff. No CBC was done today patient did have a procalcitonin of 0.04 CRP is 1.40 blood cultures pending urine negative Objective - Vital Signs Vital signs: Vital Signs Temp 97.2 F L 06/18/23 13:56 Pulse 76 06/18/23 13:56 Resp 18 06/18/23 13:56 BP 145/85 06/18/23 13:56 Pulse Ox 99 06/18/23 13:56 FiO2 Intake & Output 06/17/23 06/18/23 06/18/23 18:59 06:59 18:59 Intake Total 120 Output Total 600 600 Balance -480 -600 Weight 72 kg Intake: Oral 120 Output: Urine 600 600 Other: Voiding Method Indwelling Catheter - Exam GENERAL DESCRIPTION: A middle-aged female lying in bed in no distress RESPIRATORY SYSTEM: Unlabored breathing , decreased breath sounds at bases HEART: S1 S2 regular rate and rhythm , ABDOMEN: Soft , no tenderness EXTREMITIES: No edema feet - Labs CBC & Chem 7: 06/17/23 05:19 06/17/23 05:19 Labs: Abnormal Lab Results - Last 24 Hours (Table) 06/17/23 06/17/23 06/17/23 Range/Units 09:30 12:51 12:51 Hemoglobin A1c 6.5 H (<=6.0) % C-Reactive Protein (0.00-0.80) mg/dL TSH 0.264 L (0.350-5.500) UIU/ML Urine Protein Trace H (Negative) Urine Glucose (UA) 4+ H (Negative) Urine Ketones 1+ H (Negative) 06/17/23 Range/Units 13:07 Hemoglobin A1c (<=6.0) % C-Reactive Protein 1.40 H (0.00-0.80) mg/dL TSH (0.350-5.500) UIU/ML Urine Protein (Negative) Urine Glucose (UA) (Negative) Urine Ketones (Negative) Assessment and Plan (1) HIV (human immunodeficiency virus infection) Current Visit: Yes Status: Acute Code(s): B20 - HUMAN IMMUNODEFICIENCY VIRUS [HIV] DISEASE SNOMED Code(s): 71765606 (2) Encephalopathy acute Current Visit: Yes Status: Acute Code(s): G93.40 - ENCEPHALOPATHY, UNSPECIFIED SNOMED Code(s): 59917374 Plan: 1patient presented to hospital mental status changes questionably drug overdose as the patient urine is positive for benzos patient currently not running any fever white count no significant elevated, clinical suspicion low for infectious etiology 2patient with HIV very well-controlled with a last CD4 count of 1602 that will make any opportunistic infection less likely 3patient did have normal procalcitonin CRP is 1.40 blood cultures are pending we will repeat her CBC CMP with a.m. lab 4hold on t Isentress and Descovy till the patient wakes up and start taking her medication Dictation was produced using [email or web address] dictation software. please excuse any grammatical, word or spelling errors. Time with Patient: Less than 30
--- NOTE | 2023-06-18 19:34 | P.PN ---
Subjective Progress Note Date: 06/18/23 I am seeing the patient for the first time during this admission. Please refer to Dr. Toscano's note for further details. If the patient has altered mental status and appears due to toxic metabolic encephalopathy. Teens the patient mentation and is improved. Patient denies of any nausea any vomiting. Denies of any focal weakness. Objective - Vital Signs Vital signs: Vital Signs Temp 97.2 F L 06/18/23 13:56 Pulse 76 06/18/23 13:56 Resp 18 06/18/23 13:56 BP 145/85 06/18/23 13:56 Pulse Ox 99 06/18/23 13:56 FiO2 Intake & Output 06/18/23 06/18/23 06/19/23 06:59 18:59 06:59 Intake Total 120 1560 Output Total 600 1150 Balance -480 410 Weight 72 kg Intake: Intake, IV Titration 1560 Amount Dextrose 5%-0.45% NaCl 1, 1560 000 ml @ 130 mls/hr IV . Q7H42M [facility] Rx#:[id number] Oral 120 Output: Urine 600 1150 Other: Voiding Method Indwelling Catheter - Exam General: Lying in bed and is not in acute distress. Neuro: Somewhat limited because of the patient's cooperation She is oriented to self, place. She correctly stated current month. She stated the year is 2023. She is able to name pen and watch correctly. She's followed simple commands. No aphasia and no neglect. Pupils are round equal reactive to light. The pupils are round 3 mm bilaterally. Visual quezada is unable to assess because of her cooperation. Extraocular movements intact no nystagmus. No facial weakness. No dysarthria. Motor hard to assess individual muscle strength but was left in all extremities above gravity equally. Sensation is normal to touch throughout. - Labs CBC & Chem 7: 06/17/23 05:19 06/17/23 05:19 Labs: Abnormal Lab Results - Last 24 Hours (Table) 06/17/23 06/17/23 Range/Units 09:30 13:07 C-Reactive Protein 1.40 H (0.00-0.80) mg/dL Urine Protein Trace H (Negative) Urine Glucose (UA) 4+ H (Negative) Urine Ketones 1+ H (Negative) Assessment and Plan Assessment: * Altered mental status, probably toxic metabolic encephalopathy. Rule out overdose on any medication. Exact cause remains uncertain---mentation improved * HIV-positive * History of hepatitis C * COPD * Diabetes * Hypertension * Hyperlipidemia * Tobacco use * Bipolar disorder, per history. Plan: * Routine EEG preliminary is the study was limited because of patient myogenic artifacts (since moving during testing). Has mild to moderate encephalopathy from the limited testing. No seizure or discharges. * Per Lumbar puncture cannot be performed because patient is on Plavix. * B12: 671, folate: 28.4, TSH: 0.264 and free T4 0.99, hemoglobin A1c 6.5, a mmonia 11 . * CT head is reported as no acute intracranial process. * IF Patient continues to have altered mental status recommend to pursue MRI of the brain. * Dr. Toscano consulted ID team. * Psychiatry also following. * Will defer the rest of medical management to the primary team and other specialist. Time with Patient: Less than 30
[2023-06-19] MEDS: LORazepam 2 MG/ML INJ IV PRN ×6 (01:39→18:29)
[2023-06-19] MEDS: THIAMINE 500 MG in SODIUM CHLORIDE 0.9% 100 ML IVPB SCH (03:51)
[2023-06-19] MEDS: DEXTROSE 5%-0.45% NACL 1,000 ML IV SCH ×2 (05:51→15:46)
[2023-06-19] MEDS: LOSARTAN 25 MG TAB PO SCH (08:40)
[2023-06-19] MEDS: busPIRone HCl 10 MG TAB PO SCH ×2 (08:40→21:04)
[2023-06-19] MEDS: DILTIAZEM CD 180 MG CAP.ER.24H PO SCH (08:41)
[2023-06-19] MEDS: LINAGLIPTIN 5 MG TABLET PO SCH (08:41)
[2023-06-19] MEDS: FAMOTIDINE 20 MG TAB PO SCH ×2 (08:41→21:04)
[2023-06-19] MEDS: PANTOPRAZOLE 40 MG TABLET PO SCH (08:41)
[2023-06-19] MEDS: ATORVASTATIN 20 MG TAB PO SCH (08:41)
[2023-06-19] MEDS: haloperidoL 5 MG TAB PO PRN (10:35)
[2023-06-19 11:20] LABS: Basophils % (A) 0 %; Eosinophils # (A) 0.1 k/uL (0-0.7); Eosinophils % (A) 1 %; HCT 46.3 % (34.0-46.0); HGB 16.3 gm/dL (11.4-16.0); Lymphocytes # (A) 1.6 k/uL (1.0-4.8); Lymphocytes % (A) 18 %; MCH 32.6 pg (25.0-35.0); MCHC 35.3 g/dL (31.0-37.0); MCV 92.3 fL (80.0-100.0); Mean Platelet Volume 7.4; Monocytes # (A) 0.5 k/uL (0-1.0); Monocytes % (A) 5 %; Neutrophils # (A) 6.8 k/uL (1.3-7.7); Neutrophils % (A) 73 %; Platelet Count 238 k/uL (150-450); RBC 5.02 m/uL (3.80-5.40); RDW 12.5 % (11.5-15.5); WBC 9.3 k/uL (3.8-10.6)
[2023-06-19 11:42] LABS: ALT 19 U/L (4-34); AST 25 U/L (14-36); African American GFR (CKD) >90 (>60 ml/min/1.73 sqM); Albumin 4.1 g/dL (3.5-5.0); Albumin/Globulin Ratio 1.5; Alkaline Phosphatase 67 U/L (38-126); Anion Gap 11 mmol/L; Blood Urea Nitrogen 9 mg/dL (7-17); Calcium 9.2 mg/dL (8.4-10.2); Carbon Dioxide 22 mmol/L (22-30); Chloride 91 mmol/L (98-107); Globulin 2.8 g/dL; Glucose 180 mg/dL (74-99); Non-African American GFR(CKD) >90 (>60 ml/min/1.73 sqM); Potassium 3.4 mmol/L (3.5-5.1); Sodium 124 mmol/L (137-145); Total Bilirubin 0.7 mg/dL (0.2-1.3); Total Protein 6.9 g/dL (6.3-8.2)
[2023-06-19] MEDS ORDERED: Potassium Replacement Protocol 1 EACH MISC MISCELLANE PRN (12:52)
--- NOTE | 2023-06-19 12:53 | P.PN ---
Subjective Progress Note Date: 06/19/23 patient is a 57-year-old lady with past medical history significant for COPD, hypertension, diabetes mellitus, hepatitis B, HIV presented to the ER for altered mental status and fall. History is very limited because of patient being a poor historian. EMS was called to patient's house by roommate. Patient apparently had fallen at home. Patient was acting very confused. Patient was following commands but was erratic. There was no complain of any chest pain. Patient was complaining of generalized pain but could not pinpoint where she was hurting. There was no complain of any fever or chills. No current nausea, vomiting abdominal pain. Initial lab work done in the ER showed WBC 11.7, hemoglobin 15, platelet count 227, sodium 132, potassium 3.9, chloride 98, BUN 9, creatinine 0.49, glucose 202, AST 19, AST 18, ammonia less than 9, Urine drug screen positive for benzodiazepines EKG done in the ER showed heart rate of 109 , no ST segment elevation or depression seen, no T-wave inversions seen. Chest x-ray done in the ER showed cardiomegaly and mild pulmonary vascular prominence CT head done showed no acute intracranial process CT cervical spine negative for evidence of cervical spine fracture Patient admitted to internal medicine service 06/18. Patient seen and examined. According to nursing staff patient is more awake, she keeps saying that she is in pain, unable to maintain a conversation. 06/19. Patient seen and examined. Patient continues to be confused, only alert to her name. Patient answers simple questions. Laying comfortably in the bed, on asking starts complaining of pain. Sodium level this morning is 124, potassium was 3.4. REVIEW OF SYSTEMS: Review of systems cannot be obtained patient is confused PHYSICAL EXAMINATION: GENERAL: The patient is alert to self, laying comfortably in the bed. HEENT: Pupils are round and equally reacting to light. EOMI. No scleral icterus. No conjunctival pallor. Normocephalic, atraumatic. No pharyngeal erythema. No thyromegaly. CARDIOVASCULAR: S1 and S2 present. No murmurs, rubs, or gallops. PULMONARY: Chest is clear to auscultation, no wheezing or crackles. ABDOMEN: Soft, nontender, nondistended, normoactive bowel sounds. No palpable organomegaly. MUSCULOSKELETAL: No joint swelling or deformity. EXTREMITIES: No cyanosis, clubbing, or pedal edema. NEUROLOGICAL: Moving all extremities, speech is not slurred SKIN: Bruising seen on the left side of chest and back Assessment and plan Acute metabolic encephalopathy Hyponatremia Hypokalemia Fall History of COPD History of hypertension History of diabetes mellitus History of HIV History of hepatitis B Monitor vital signs Monitor CBC Monitor CMP Fall precautions Delirium precaution Avoid any narcotics and sedatives at this time Continue IV fluids Ordered potassium replacement Continue antiemetics EEG done showed no seizure-like activity, Neurology following Psych evaluated the patient recommended the following Will hold off on all the psychotropic medications at this time Of agitation and may continue to use Haldol 1-5 mg by mouth or IM every 4-6 hours for severe agitation and/or lorazepam 1-2 mg IM or by mouth every 4-6 hours when necessary Labs and medication were reviewed.. Continue same treatment. Continue with symptomatic treatment. Resume home medication. Monitor labs and vitals. DVT and GI prophylaxis. Further recommendations as per clinical course of the patient Dictation was produced using [employer] dictation software. please excuse any grammatical, word or spelling errors. Objective - Vital Signs Vital signs: Vital Signs Temp 98.6 F 06/19/23 07:29 Pulse 112 H 06/19/23 07:29 Resp 18 06/19/23 08:00 BP 155/89 06/19/23 07:29 Pulse Ox 94 L 06/19/23 08:44 FiO2 Intake & Output 06/18/23 06/19/23 06/19/23 18:59 06:59 18:59 Intake Total 1560 Output Total 1150 700 Balance 410 -700 Intake: Intake, IV Titration 1560 Amount Dextrose 5%-0.45% NaCl 1, 1560 000 ml @ 130 mls/hr IV . Q7H42M [facility] Rx#:[id number] Output: Urine 1150 700 Other: Voiding Method Indwelling Catheter Indwelling Catheter Indwelling Catheter - Labs CBC & Chem 7: 06/19/23 11:06 06/19/23 11:06 Labs: Microbiology - Last 24 Hours (Table) 06/17/23 15:47 Blood Culture - Preliminary Blood
--- NOTE | 2023-06-19 15:31 | P.PN ---
Subjective Progress Note Date: 06/19/23 I am following-up with patient and she continues to be confused. Objective - Vital Signs Vital signs: Vital Signs Temp 97.7 F 06/19/23 11:35 Pulse 62 06/19/23 11:35 Resp 18 06/19/23 11:35 BP 148/78 06/19/23 11:35 Pulse Ox 95 06/19/23 11:35 FiO2 Intake & Output 06/18/23 06/19/23 06/19/23 18:59 06:59 18:59 Intake Total 1560 Output Total 1150 700 600 Balance 410 -700 -600 Intake: Intake, IV Titration 1560 Amount Dextrose 5%-0.45% NaCl 1, 1560 000 ml @ 130 mls/hr IV . Q7H42M [facility] Rx#:[id number] Output: Urine 1150 700 600 Other: Voiding Method Indwelling Catheter Indwelling Catheter Indwelling Catheter - Exam General: Lying in bed and does not appear in acute distress. Neuro: Severely drowsy but briefly awakeable to voice. Stated her first name correctly but otherwise not following commands. - Labs CBC & Chem 7: 06/19/23 11:06 06/19/23 11:06 Labs: Abnormal Lab Results - Last 24 Hours (Table) 06/19/23 06/19/23 Range/Units 11:06 11:06 Hgb 16.3 H (11.4-16.0) gm/dL Hct 46.3 H (34.0-46.0) % Sodium 124 L (137-145) mmol/L Potassium 3.4 L (3.5-5.1) mmol/L Chloride 91 L (98-107) mmol/L Creatinine 0.28 L (0.52-1.04) mg/dL Glucose 180 H (74-99) mg/dL Microbiology - Last 24 Hours (Table) 06/17/23 15:47 Blood Culture - Preliminary Blood Assessment and Plan Assessment: * Altered mental status, probably toxic metabolic encephalopathy. Rule out overdose on any medication. Patient is afebrile and subtle leukocytosis on presentation that resolved. Exact cause remains uncertain---mentation worse today * HIV-positive * History of hepatitis C * COPD * Diabetes * Hypertension * Hyperlipidemia * Tobacco use * Bipolar disorder, per history. Plan: * Routine EEG preliminary is the study was limited because of patient myogenic artifacts (since moving during testing). Has mild to moderate encephalopathy from the limited testing. No seizure or discharges. * Since EEG was limited yesterday will attempt to get repeat EEG. * Spoke with primary team and Plavix is on held for Lumbar puncture since patient continues to have confusion to rule out any underlying HOTEL [employer]CIER[employer] infection. * I will get repeat CT head today. And will attempt to pursue with MRI Brain if patient cooperates for testing. * B12: 671, folate: 28.4, TSH: 0.264 and free T4 0.99, hemoglobin A1c 6.5, ammonia 11 . * CT head is reported as no acute intracranial process. * Dr. Toscano consulted ID team. * Psychiatry also following. * Will defer the rest of medical management to the primary team and other specialist. The plan is discussed with primary team. Time with Patient: Less than 30
[2023-06-19] MEDS: POTASSIUM CHLORIDE ER 20 MEQ TAB.ER PO SCH ×2 (15:47→17:31)
[2023-06-19] MEDS: SODIUM CHLORIDE 0.9% 1,000 ML IV SCH (16:00)
[2023-06-19] MEDS: KETOROLAC 15 MG/ML 1 ML VIAL IVP PRN (18:31)
--- NOTE | 2023-06-19 20:30 | CT ---
EXAMINATION TYPE: CT brain wo con DATE OF EXAM: 06/19/2023 COMPARISON: 06/17/2023 HISTORY: 57-year-old female ams, confusion of unknown cause TECHNIQUE: Examination was done in axial plane without intravenous contrast. Coronal and sagittal r econstructions performed. CT DLP: 2134.7 mGycm Automated exposure control for dose reduction was used. FINDINGS: There is no evidence of acute intracranial hemorrhage, acute ischemic changes, mass, mass-effect, or extra-axial fluid collection. There is no effacement of cerebral sulci or basal subarachnoid cister ns. There is no hydrocephalus. There is no midline shift. Dennison-white matter distinction is preserv ed. Right rightward nasal septal deviation. Trace mucosal thickening ethmoid air cells. Paranasal sinuses and mastoid air cells otherwise well pneumatized. Pickens globes are intact. IMPRESSION: No acute intracranial abnormality seen.
[2023-06-20] MEDS ORDERED: POTASSIUM CHLORIDE ER 20 MEQ TAB.ER PO SCH
[2023-06-20] MEDS: LORazepam 2 MG/ML INJ IV PRN ×4 (00:30→18:34)
[2023-06-20] MEDS: KETOROLAC 15 MG/ML 1 ML VIAL IVP PRN ×2 (04:00→18:34)
[2023-06-20] MEDS: SODIUM CHLORIDE 0.9% 1,000 ML IV SCH ×2 (04:06→09:32)
--- NOTE | 2023-06-20 08:28 | EEG ---
ELECTROENCEPHALOGRAM REPORT CLINICAL HISTORY: This is a 57-year-old female with altered mental status. The video EEG is obtained to evaluate for seizure epileptiform activity. RELEVANT MEDICATION: Ativan. EEG TYPE: A routine 21-channel EEG with video using the 10/20 electrode placement system. DESCRIPTION: Wakefulness is obtained. Study is limited because of diffuse myogenic artifact. From the limitation of the study, the background consists of 5.5 to 6 hertz activity. There was no physiological stage 2 sleep architecture. There is no focal slowing from the limitation of the study. Interictal and ictal, no clear seizure from the limitation of the study. ACTIVATION PROCEDURE: Photic stimulation and hyperventilation are not performed. CLINICAL INTERPRETATION: This is a limited study because of the diffuse myogenic artifact. But from the limitation of the study, the background slowing is suggestive of mild to moderate encephalopathy. Otherwise, there is no focal slowing, epileptiform discharge, or seizure on the EEG. Clinical correlation is recommended. TREVA / JUDITH: [id number] /
[2023-06-20] MEDS: busPIRone HCl 10 MG TAB PO SCH ×2 (09:33→19:34)
[2023-06-20] MEDS: FAMOTIDINE 20 MG TAB PO SCH ×2 (09:33→19:34)
[2023-06-20] MEDS: PANTOPRAZOLE 40 MG TABLET PO SCH (09:33)
[2023-06-20] MEDS: ATORVASTATIN 20 MG TAB PO SCH (09:33)
[2023-06-20] MEDS: LOSARTAN 25 MG TAB PO SCH (09:33)
[2023-06-20] MEDS: LINAGLIPTIN 5 MG TABLET PO SCH (09:33)
[2023-06-20] MEDS: THIAMINE 100 MG TAB PO SCH (09:33)
[2023-06-20] MEDS: DILTIAZEM CD 180 MG CAP.ER.24H PO SCH (09:33)
[2023-06-20 11:48] LABS: Basophils # (A) 0.05 X 10*3/uL (0.00-0.10); Basophils % (A) 0.5 %; Eosinophils # (A) 0.09 X 10*3/uL (0.04-0.35); HCT 43.6 % (37.2-46.3); HGB 15.7 g/dL (12.0-15.0); Lymphocytes # (A) 2.27 X 10*3/uL (0.90-5.00); Lymphocytes % (A) 24.6 %; MCV 88.8 FL (80.0-97.0); Mean Platelet Volume 9.9 FL (9.5-12.2); Monocytes # (A) 0.91 X 10*3/uL (0.20-1.00); Monocytes % (A) 9.8 %; NRBC Per 100 WBC 0 X 10*3/uL (0.00-0.01); Neutrophils # (A) 5.79 X 10*3/uL (1.80-7.70); Neutrophils % (A) 62.7 %; Platelet Count 268 X 10*3/uL (140-440); RBC 4.91 X 10*6/uL (4.10-5.20); RDW 12.2 % (11.5-14.5); WBC 9.24 X 10*3/uL (4.50-10.00)
[2023-06-20 12:02] LABS: Blood Urea Nitrogen 10.3 mg/dL (9.0-27.0); Glucose 118 mg/dL (70-110)
[2023-06-20 12:03] LABS: ALT 14 U/L (8-44); AST 13 U/L (13-35); Albumin 3.9 g/dL (3.8-4.9); Albumin/Globulin Ratio 1.77 Ratio (1.60-3.17); Alkaline Phosphatase 58 U/L (41-126); Calcium 9.3 mg/dL (8.7-10.3); Carbon Dioxide 21.5 mmol/L (21.6-31.8); Chloride 96 mmol/L (96-109); Globulin 2.2 g/dL (1.6-3.3); Potassium 4.1 mmol/L (3.5-5.5); Sodium 128 mmol/L (135-145); Total Bilirubin 0.5 mg/dL (0.3-1.2); Total Protein 6.1 g/dL (6.2-8.2)
--- NOTE | 2023-06-20 13:40 | P.PN ---
Progress Note - Text Progress Note Date: 06/20/23 Psychiatric follow-up: Subjective data:/Subjective data The patient was seen chart was reviewed and case discussed with the nursing staff The patient was laying in bed and still seem to be restless and anxious She presents a very disheveled appearance with being semi-naked from the waist down Patient continues to go back and forth in the bed although not as significantly thrashing as previously She seemed to have difficulty remembering as to where she was asked the name of the hospital She was aware that she was in [facility] Patient states that she would be more comfortable at home and that she has someone that can stay with her at home She denies any suicidal or homicidal ideations She seemed to have much difficulty with concentration and attention span She seemed to be easily distracted Patient did not endorse any suicidal or homicidal ideations or plans Cognitively she continues to be fluctuating Diagnostic impression: Bipolar disorder by history Major neurocognitive disorder/metabolic encephalopathy/delirium improving Plan: Patient has not been back on her previous psychotropic medications that includes Lamictal and Geodon At this time we'll restart her back on the Lamictal at 300 mg at bedtime since any further discontinuation be on Fridays will result in having to restart the medication back at 25 mg Continue supportive care Patient is improving but do not believe that she is ready to go home yet and will continue for further observation and reevaluation Thank you very much for your kind referral and we'll follow this patient along with you Mauri Young M.D.
--- NOTE | 2023-06-20 14:34 | P.PN ---
Subjective Progress Note Date: 06/20/23 patient is a 57-year-old lady with past medical history significant for COPD, hypertension, diabetes mellitus, hepatitis B, HIV presented to the ER for altered mental status and fall. History is very limited because of patient being a poor historian. EMS was called to patient's house by roommate. Patient apparently had fallen at home. Patient was acting very confused. Patient was following commands but was erratic. There was no complain of any chest pain. Patient was complaining of generalized pain but could not pinpoint where she was hurting. There was no complain of any fever or chills. No current nausea, vomiting abdominal pain. Initial lab work done in the ER showed WBC 11.7, hemoglobin 15, platelet count 227, sodium 132, potassium 3.9, chloride 98, BUN 9, creatinine 0.49, glucose 202, AST 19, AST 18, ammonia less than 9, Urine drug screen positive for benzodiazepines EKG done in the ER showed heart rate of 109 , no ST segment elevation or depression seen, no T-wave inversions seen. Chest x-ray done in the ER showed cardiomegaly and mild pulmonary vascular prominence CT head done showed no acute intracranial process CT cervical spine negative for evidence of cervical spine fracture Patient admitted to internal medicine service 06/18. Patient seen and examined. According to nursing staff patient is more awake, she keeps saying that she is in pain, unable to maintain a conversation. 06/19. Patient seen and examined. Patient continues to be confused, only alert to her name. Patient answers simple questions. Laying comfortably in the bed, on asking starts complaining of pain. Sodium level this morning is 124, potassium was 3.4. 06/20. Patient seen and examined. Mental status has improved, able to tell us name place and the year. REVIEW OF SYSTEMS: Review of systems cannot be obtained patient is confused PHYSICAL EXAMINATION: GENERAL: The patient is alert to self, laying comfortably in the bed. HEENT: Pupils are round and equally reacting to light. EOMI. No scleral icterus. No conjunctival pallor. Normocephalic, atraumatic. No pharyngeal erythema. No thyromegaly. CARDIOVASCULAR: S1 and S2 present. No murmurs, rubs, or gallops. PULMONARY: Chest is clear to auscultation, no wheezing or crackles. ABDOMEN: Soft, nontender, nondistended, normoactive bowel sounds. No palpable organomegaly. MUSCULOSKELETAL: No joint swelling or deformity. EXTREMITIES: No cyanosis, clubbing, or pedal edema. NEUROLOGICAL: Moving all extremities, speech is not slurred SKIN: Bruising seen on the left side of chest and back Assessment and plan Acute metabolic encephalopathy Hyponatremia Hypokalemia Fall History of COPD History of hypertension History of diabetes mellitus History of HIV History of hepatitis B Monitor vital signs Monitor CBC Monitor CMP Fall precautions Delirium precaution Avoid any narcotics and sedatives at this time Continue IV fluids Continue antiemetics EEG done showed no seizure-like activity, MRI brain ordered Neurology following Psych reeval to patient today, recommended resuming Lamictal. Labs and medication were reviewed.. Continue same treatment. Continue with symptomatic treatment. Resume home medication. Monitor labs and vitals. DVT and GI prophylaxis. Further recommendations as per clinical course of the patient Dictation was produced using [employer] dictation software. please excuse any grammatical, word or spelling errors. Objective - Vital Signs Vital signs: Vital Signs Temp 97.4 F L 06/20/23 07:32 Pulse 103 H 06/20/23 07:32 Resp 18 06/20/23 07:32 BP 135/77 06/20/23 07:32 Pulse Ox 95 06/20/23 07:32 FiO2 Intake & Output 06/19/23 06/20/23 06/20/23 18:59 06:59 18:59 Output Total 1000 600 Balance -1000 -600 Output: Urine 1000 600 Other: Voiding Method Indwelling Catheter Indwelling Catheter - Labs CBC & Chem 7: 06/20/23 06:16 06/20/23 06:16 Labs: Abnormal Lab Results - Last 24 Hours (Table) 06/19/23 06/19/23 Range/Units 11:06 11:06 Hgb 16.3 H (11.4-16.0) gm/dL Hct 46.3 H (34.0-46.0) % Sodium 124 L (137-145) mmol/L Potassium 3.4 L (3.5-5.1) mmol/L Chloride 91 L (98-107) mmol/L Creatinine 0.28 L (0.52-1.04) mg/dL Glucose 180 H (74-99) mg/dL Microbiology - Last 24 Hours (Table) 06/17/23 15:47 Blood Culture - Preliminary Blood
--- NOTE | 2023-06-20 15:29 | P.PN ---
Subjective Progress Note Date: 06/20/23 Firstly follow-up with patient and that she's feeling better today compared to the yesterday. She denies of any focal weakness. Denies of any nausea vomiting. Objective - Vital Signs Vital signs: Vital Signs Temp 98.9 F 06/20/23 13:46 Pulse 116 H 06/20/23 13:46 Resp 17 06/20/23 13:46 BP 157/93 06/20/23 13:46 Pulse Ox 95 06/20/23 13:46 FiO2 Intake & Output 06/19/23 06/20/23 06/20/23 18:59 06:59 18:59 Output Total 1000 600 Balance -1000 -600 Output: Urine 1000 600 Other: Voiding Method Indwelling Catheter Indwelling Catheter Indwelling Catheter - Exam General: Lying in bed and is not in acute distress. Neuro: Upon examining the patient that she was initially sleeping but she was awake able to voice at. She was oriented to self, place as well as she correctly stated the month. Able to identify objects correctly such as pen and watch. She is following simple commands. No aphasia and no neglect. Pupils are round equal reactive to light. Visual quezada are full to consultation. Extraocular movement is intact no nystagmus. No facial weakness. No dysarthria Motor is lifting all extremities above gravity symmetrically. - Labs CBC & Chem 7: 06/20/23 06:16 06/20/23 06:16 Labs: Abnormal Lab Results - Last 24 Hours (Table) 06/20/23 06/20/23 Range/Units 06:16 06:16 Hgb 15.7 H (12.0-15.0) g/dL Immature Gran # 0.13 H (0.00-0.04) X 10*3/uL Sodium 128 L (135-145) mmol/L Carbon Dioxide 21.5 L (21.6-31.8) mmol/L Creatinine 0.5 L (0.6-1.5) mg/dL BUN/Creatinine Ratio 20.60 H (12.00-20.00) Ratio Glucose 118 H (70-110) mg/dL Total Protein 6.1 L (6.2-8.2) g/dL Microbiology - Last 24 Hours (Table) 06/17/23 15:47 Blood Culture - Preliminary Blood Assessment and Plan Assessment: * Altered mental status, probably toxic metabolic encephalopathy. Rule out overdose on any medication. Patient is afebrile and subtle leukocytosis on presentation that resolved. Exact cause remains uncertain---mentation improved today compared to yesterday. * HIV-positive * History of hepatitis C * COPD * Diabetes * Hypertension * Hyperlipidemia * Tobacco use * Bipolar disorder, per history. Plan: * Preliminary Routine EEG today: Mild encephalopathy. No seizure or discharges. * Repeat CT of the head on 06/19/2023 is no acute intracranial abnormality seen. I personally reviewed the CT and I agree with the report. * We'll pursue with the MRI of the brain to get a clear imaging of the brain to rule out any acute to subacute process is not seen on the CT. * Spoke with primary team and Plavix is on held for Lumbar puncture since patient continues to have confusion to rule out any underlying EXECUTIVE ADMIN infection. * B12: 671, folate: 28.4, TSH: 0.264 and free T4 0.99, hemoglobin A1c 6.5, ammonia 11 . * Dr. Toscano consulted ID team. * Psychiatry also following. * Will defer the rest of medical management to the primary team and other specialist. The plan is discussed with primary team. Time with Patient: Less than 30
[2023-06-20] MEDS: lamoTRIgine 100 MG TAB PO SCH (19:34)
[2023-06-21] MEDS: LORazepam 2 MG/ML INJ IV PRN ×3 (03:09→10:30)
[2023-06-21] MEDS: SODIUM CHLORIDE 0.9% 1,000 ML IV SCH ×2 (07:19→09:13)
[2023-06-21] MEDS: KETOROLAC 15 MG/ML 1 ML VIAL IVP PRN ×3 (07:40→22:47)
[2023-06-21] MEDS: ATORVASTATIN 20 MG TAB PO SCH (09:13)
[2023-06-21] MEDS: FAMOTIDINE 20 MG TAB PO SCH ×2 (09:13→20:39)
[2023-06-21] MEDS: THIAMINE 100 MG TAB PO SCH (09:13)
[2023-06-21] MEDS: busPIRone HCl 10 MG TAB PO SCH ×2 (09:13→20:39)
[2023-06-21] MEDS: LOSARTAN 25 MG TAB PO SCH (09:13)
[2023-06-21] MEDS: DILTIAZEM CD 180 MG CAP.ER.24H PO SCH (09:13)
[2023-06-21] MEDS: LINAGLIPTIN 5 MG TABLET PO SCH (09:13)
[2023-06-21] MEDS: PANTOPRAZOLE 40 MG TABLET PO SCH (09:13)
[2023-06-21 10:58] LABS: Basophils % (A) 0 %; Eosinophils # (A) 0.1 k/uL (0-0.7); Eosinophils % (A) 1 %; HCT 44.7 % (34.0-46.0); HGB 15.5 gm/dL (11.4-16.0); Lymphocytes # (A) 1.6 k/uL (1.0-4.8); Lymphocytes % (A) 20 %; MCH 32.6 pg (25.0-35.0); MCHC 34.6 g/dL (31.0-37.0); MCV 94.2 fL (80.0-100.0); Mean Platelet Volume 7.3; Monocytes # (A) 0.3 k/uL (0-1.0); Monocytes % (A) 4 %; Neutrophils # (A) 5.8 k/uL (1.3-7.7); Neutrophils % (A) 71 %; Platelet Count 242 k/uL (150-450); RBC 4.74 m/uL (3.80-5.40); RDW 12.8 % (11.5-15.5); WBC 8.1 k/uL (3.8-10.6)
[2023-06-21 11:09] LABS: ALT 19 U/L (4-34); AST 21 U/L (14-36); African American GFR (CKD) >90 (>60 ml/min/1.73 sqM); Albumin 3.8 g/dL (3.5-5.0); Albumin/Globulin Ratio 1.5; Alkaline Phosphatase 57 U/L (38-126); Anion Gap 12 mmol/L; Blood Urea Nitrogen 9 mg/dL (7-17); Carbon Dioxide 22 mmol/L (22-30); Chloride 98 mmol/L (98-107); Globulin 2.5 g/dL; Glucose 186 mg/dL (74-99); Non-African American GFR(CKD) >90 (>60 ml/min/1.73 sqM); Potassium 3.4 mmol/L (3.5-5.1); Sodium 132 mmol/L (137-145); Total Bilirubin 0.7 mg/dL (0.2-1.3); Total Protein 6.3 g/dL (6.3-8.2)
--- NOTE | 2023-06-21 11:42 | P.PN ---
Subjective Progress Note Date: 06/21/23 I am following-up with patient and she feels she is about the same. Denies of any focal weakness, numbness, nausea or vomiting. Objective - Vital Signs Vital signs: Vital Signs Temp 97.5 F L 06/21/23 08:04 Pulse 89 06/21/23 08:04 Resp 15 06/21/23 08:04 BP 152/87 06/21/23 08:04 Pulse Ox 92 L 06/21/23 08:04 FiO2 Intake & Output 06/20/23 06/21/23 06/21/23 18:59 06:59 18:59 Intake Total 240 Output Total 800 Balance -560 Intake: Oral 240 Output: Urine 800 Uretheral (Norman) 800 Other: Voiding Method Indwelling Catheter Indwelling Catheter Toilet Bedside Commode Diaper # Voids 2 1 1 - Exam General: Lying in bed and is not in acute distress. Neuro: Upon examining the patient again was initially sleeping but she was awake able to voice at. She was oriented to self, place as well as she correctly stated the month. Able to identify objects correctly such as pen and watch. She is following simple commands. No aphasia and no neglect. Pupils are round equal reactive to light. Visual quezada are full to consultation. Extraocular movement is intact no nystagmus. No facial weakness. No dysarthria Motor is lifting all extremities above gravity symmetrically. - Labs CBC & Chem 7: 06/21/23 10:41 06/21/23 10:41 Labs: Abnormal Lab Results - Last 24 Hours (Table) 06/20/23 06/20/23 06/21/23 Range/Units 06:16 06:16 10:41 Hgb 15.7 H (12.0-15.0) g/dL Immature Gran # 0.13 H (0.00-0.04) X 10*3/uL Sodium 128 L 132 L (135-145) mmol/L Potassium 3.4 L (3.5-5.1) mmol/L Carbon Dioxide 21.5 L (21.6-31.8) mmol/L Creatinine 0.5 L 0.40 L (0.6-1.5) mg/dL BUN/Creatinine Ratio 20.60 H (12.00-20.00) Ratio Glucose 118 H 186 H (70-110) mg/dL Total Protein 6.1 L (6.2-8.2) g/dL Microbiology - Last 24 Hours (Table) 06/17/23 15:47 Blood Culture - Preliminary Blood Assessment and Plan Assessment: * Altered mental status, probably toxic metabolic encephalopathy. Rule out overdose on any medication. Patient is afebrile and subtle leukocytosis on presentation that resolved. Exact cause remains uncertain---mentation improved today compared to yesterday. * HIV-positive * History of hepatitis C * COPD * Diabetes * Hypertension * Hyperlipidemia * Tobacco use * Bipolar disorder, per history. Plan: * Preliminary Routine EEG today: Mild encephalopathy. No seizure or discharges. * Repeat CT of the head on 06/19/2023 is no acute intracranial abnormality seen. I personally reviewed the CT and I agree with the report. * We'll pursue with the MRI of the brain to get a clear imaging of the brain to rule out any acute to subacute process is not seen on the CT. * Spoke with primary team and I.D. team and we agree no Lumbar Puncture since no further confusion and does not appear underlying LOCK TECHNICIAN infection. * B12: 671, folate: 28.4, TSH: 0.264 and free T4 0.99, hemoglobin A1c 6.5, ammonia 11 . * Dr. Toscano consulted ID team. * Psychiatry also following. * Will defer the rest of medical management to the primary team and other specialist. The plan is discussed with primary team. Time with Patient: Less than 30
--- NOTE | 2023-06-21 12:53 | P.PN ---
Subjective Progress Note Date: 06/19/23 Principal diagnosis: Reason for follow-up is HIV Patient is a 57-year-old female with a past medical history significant for COPD diabetes mellitus hypertension HIV for the patient is currently on Isentress and Descovy patient last blood work for HIV was on 04/11/2023 with the patient did have a CD4 count of 1602 at the patient i brought to the hospital for evaluation of evaluation of mental status changes and question of drug overdose. On today's evaluation that is 06/19/2023 patient continues to be afebrile patient is breathing comfortably on room air no need for supplemental oxygen patient is slightly more awake and alert and did answer some simple question no vomiting diarrhea or any other changes reported by the nursing staff. Patient did have white count of 9.3, creatinine 0.28, Pro-Jm 0.04, CRP 1.40 Objective - Vital Signs Vital signs: Vital Signs Temp 97.7 F 06/19/23 11:35 Pulse 62 06/19/23 11:35 Resp 18 06/19/23 11:35 BP 148/78 06/19/23 11:35 Pulse Ox 95 06/19/23 11:35 FiO2 Intake & Output 06/18/23 06/19/23 06/19/23 18:59 06:59 18:59 Intake Total 1560 Output Total 1150 700 Balance 410 -700 Intake: Intake, IV Titration 1560 Amount Dextrose 5%-0.45% NaCl 1, 1560 000 ml @ 130 mls/hr IV . [id number] [facility] Rx#:[id number] Output: Urine 1150 700 Other: Voiding Method Indwelling Catheter Indwelling Catheter Indwelling Catheter - Exam GENERAL DESCRIPTION: A middle-aged female lying in bed in no distress RESPIRATORY SYSTEM: Unlabored breathing , decreased breath sounds at bases HEART: S1 S2 regular rate and rhythm , ABDOMEN: Soft , no tenderness EXTREMITIES: No edema feet - Labs CBC & Chem 7: 06/21/23 10:41 06/21/23 10:41 Labs: Abnormal Lab Results - Last 24 Hours (Table) 06/19/23 06/19/23 Range/Units 11:06 11:06 Hgb 16.3 H (11.4-16.0) gm/dL Hct 46.3 H (34.0-46.0) % Sodium 124 L (137-145) mmol/L Potassium 3.4 L (3.5-5.1) mmol/L Chloride 91 L (98-107) mmol/L Creatinine 0.28 L (0.52-1.04) mg/dL Glucose 180 H (74-99) mg/dL Microbiology - Last 24 Hours (Table) 06/17/23 15:47 Blood Culture - Preliminary Blood Assessment and Plan (1) HIV (human immunodeficiency virus infection) Current Visit: Yes Status: Acute Code(s): B20 - HUMAN IMMUNODEFICIENCY VIRUS [HIV] DISEASE SNOMED Code(s): 86942313 (2) Encephalopathy acute Current Visit: Yes Status: Acute Code(s): G93.40 - ENCEPHALOPATHY, UNSPECIFIED SNOMED Code(s): 06085272 Plan: 1patient presented to hospital mental status changes questionably drug overdose as the patient urine is positive for benzos patient currently not running any fever white count no significant elevated, clinical suspicion low for infectious etiology 2patient with HIV very well-controlled with a last CD4 count of 1602 that will make any opportunistic infection less likely 3patient did have normal procalcitonin CRP is 1.40 blood cultures are pending we will repeat her CBC CMP with a.m. lab 4the patient HIV medication including Isentress and Descovy are currently on hold as the pharmacy do not have those medication Dictation was produced using [employer] dictation software. please excuse any grammatical, word or spelling errors. Time with Patient: Less than 30
--- NOTE | 2023-06-21 12:55 | P.PN ---
Subjective Progress Note Date: 06/20/23 Principal diagnosis: Reason for follow-up is HIV Patient is a 57-year-old female with a past medical history significant for COPD diabetes mellitus hypertension HIV for the patient is currently on Isentress and Descovy patient last blood work for HIV was on 04/11/2023 with the patient did have a CD4 count of 1602 at the patient i brought to the hospital for evaluation of evaluation of mental status changes and question of drug overdose. On today's evaluation that is 06/20/2023 patient remains to be afebrile patient is breathing comfortably on room air, the patient slightly more awake alert and has been insisting on going home denies headache overall not a very good historian no vomiting or diarrhea was reported by the nursing staff Patient did have white count of 9.24, creatinine 0.5, Pro-Jm 0.04, CRP 1.40, blood cultures pending Objective - Vital Signs Vital signs: Vital Signs Temp 97.4 F L 06/20/23 07:32 Pulse 103 H 06/20/23 07:32 Resp 18 06/20/23 07:32 BP 135/77 06/20/23 07:32 Pulse Ox 95 06/20/23 07:32 FiO2 Intake & Output 06/19/23 06/20/23 06/20/23 18:59 06:59 18:59 Output Total 1000 600 Balance -1000 -600 Output: Urine 1000 600 Other: Voiding Method Indwelling Catheter Indwelling Catheter Indwelling Catheter - Exam GENERAL DESCRIPTION: A middle-aged female lying in bed in no distress RESPIRATORY SYSTEM: Unlabored breathing , decreased breath sounds at bases HEART: S1 S2 regular rate and rhythm , ABDOMEN: Soft , no tenderness EXTREMITIES: No edema feet - Labs CBC & Chem 7: 06/21/23 10:41 06/21/23 10:41 Labs: Abnormal Lab Results - Last 24 Hours (Table) 06/20/23 06/20/23 Range/Units 06:16 06:16 Hgb 15.7 H (12.0-15.0) g/dL Immature Gran # 0.13 H (0.00-0.04) X 10*3/uL Sodium 128 L (135-145) mmol/L Carbon Dioxide 21.5 L (21.6-31.8) mmol/L Creatinine 0.5 L (0.6-1.5) mg/dL BUN/Creatinine Ratio 20.60 H (12.00-20.00) Ratio Glucose 118 H (70-110) mg/dL Total Protein 6.1 L (6.2-8.2) g/dL Microbiology - Last 24 Hours (Table) 06/17/23 15:47 Blood Culture - Preliminary Blood Assessment and Plan (1) HIV (human immunodeficiency virus infection) Current Visit: Yes Status: Acute Code(s): B20 - HUMAN IMMUNODEFICIENCY VIRUS [HIV] DISEASE SNOMED Code(s): 24647384 (2) Encephalopathy acute Current Visit: Yes Status: Acute Code(s): G93.40 - ENCEPHALOPATHY, UNSPECIFIED SNOMED Code(s): 30757352 Plan: 1patient presented to hospital mental status changes questionably drug overdose as the patient urine is positive for benzos patient currently not running any fever white count no significant elevated, clinical suspicion low for infectious etiology 2patient with HIV very well-controlled with a last CD4 count of 1602 that will make any opportunistic infection less likely 3patient did have normal procalcitonin CRP is 1.40 blood cultures are pending 4the patient HIV medication including Isentress and Descovy are currently on hold as the pharmacy do not have those medication and no one at patient home who can bring her medication Dictation was produced using [employer] dictation software. please excuse any grammatical, word or spelling errors.
--- NOTE | 2023-06-21 12:58 | P.PN ---
Subjective Progress Note Date: 06/21/23 Principal diagnosis: Reason for follow-up is HIV Patient is a 57-year-old female with a past medical history significant for COPD diabetes mellitus hypertension HIV for the patient is currently on Isentress and Descovy patient last blood work for HIV was on 04/11/2023 with the patient did have a CD4 count of 1602 at the patient i brought to the hospital for evaluation of evaluation of mental status changes and question of drug overdose. On today's evaluation that is 06/21/2023 patient continues to be afebrile patient slightly sleepy lethargic today and did not answer any question she is breathing comfortably on room air no vomiting or diarrhea has been reported by the nursing staff Patient did have white count of 8.1 creatinine 0.40, Pro-Jm 0.04, CRP 1.40, b lood cultures pending Objective - Vital Signs Vital signs: Vital Signs Temp 97.5 F L 06/21/23 08:04 Pulse 89 06/21/23 08:04 Resp 15 06/21/23 08:04 BP 152/87 06/21/23 08:04 Pulse Ox 95 06/21/23 12:12 FiO2 Intake & Output 06/20/23 06/21/23 06/21/23 18:59 06:59 18:59 Intake Total 240 Output Total 800 Balance -560 Intake: Oral 240 Output: Urine 800 Uretheral (Norman) 800 Other: Voiding Method Indwelling Catheter Indwelling Catheter Toilet Bedside Commode Diaper # Voids 2 1 1 - Exam GENERAL DESCRIPTION: A middle-aged female lying in bed in no distress RESPIRATORY SYSTEM: Unlabored breathing , decreased breath sounds at bases HEART: S1 S2 regular rate and rhythm , ABDOMEN: Soft , no tenderness EXTREMITIES: No edema feet - Labs CBC & Chem 7: 06/21/23 10:41 06/21/23 10:41 Labs: Abnormal Lab Results - Last 24 Hours (Table) 06/21/23 Range/Units 10:41 Sodium 132 L (137-145) mmol/L Potassium 3.4 L (3.5-5.1) mmol/L Creatinine 0.40 L (0.52-1.04) mg/dL Glucose 186 H (74-99) mg/dL Microbiology - Last 24 Hours (Table) 06/17/23 15:47 Blood Culture - Preliminary Blood Assessment and Plan (1) HIV (human immunodeficiency virus infection) Current Visit: Yes Status: Acute Code(s): B20 - HUMAN IMMUNODEFICIENCY VIRUS [HIV] DISEASE SNOMED Code(s): 08668955 (2) Encephalopathy acute Current Visit: Yes Status: Acute Code(s): G93.40 - ENCEPHALOPATHY, UNSPECIFIED SNOMED Code(s): 02985799 Plan: 1patient presented to hospital mental status changes questionably drug overdose as the patient urine is positive for benzos patient currently not running any fever white count no significant elevated, clinical suspicion low for infectious etiology 2patient with HIV very well-controlled with a last CD4 count of 1602 that will make any opportunistic infection less likely 3patient did have normal procalcitonin CRP is 1.40 blood cultures are Are so far negative clinical suspicious low for infectious etiology for her underlying mental status changes and is being worked up by neurology and psych 4the patient has not been able to take her HIV medication during this hospital stay as [facility] is trying to have someone bring her home medication to the hospital Dictation was produced using [employer] dictation software. please excuse any grammatical, word or spelling errors. Time with Patient: Less than 30
--- NOTE | 2023-06-21 14:09 | P.PN ---
Subjective Progress Note Date: 06/21/23 patient is a 57-year-old lady with past medical history significant for COPD, hypertension, diabetes mellitus, hepatitis B, HIV presented to the ER for altered mental status and fall. History is very limited because of patient being a poor historian. EMS was called to patient's house by roommate. Patient apparently had fallen at home. Patient was acting very confused. Patient was following commands but was erratic. There was no complain of any chest pain. Patient was complaining of generalized pain but could not pinpoint where she was hurting. There was no complain of any fever or chills. No current nausea, vomiting abdominal pain. Initial lab work done in the ER showed WBC 11.7, hemoglobin 15, platelet count 227, sodium 132, potassium 3.9, chloride 98, BUN 9, creatinine 0.49, glucose 202, AST 19, AST 18, ammonia less than 9, Urine drug screen positive for benzodiazepines EKG done in the ER showed heart rate of 109 , no ST segment elevation or depression seen, no T-wave inversions seen. Chest x-ray done in the ER showed cardiomegaly and mild pulmonary vascular prominence CT head done showed no acute intracranial process CT cervical spine negative for evidence of cervical spine fracture Patient admitted to internal medicine service 06/18. Patient seen and examined. According to nursing staff patient is more awake, she keeps saying that she is in pain, unable to maintain a conversation. 06/19. Patient seen and examined. Patient continues to be confused, only alert to her name. Patient answers simple questions. Laying comfortably in the bed, on asking starts complaining of pain. Sodium level this morning is 124, potassium was 3.4. 06/20. Patient seen and examined. Mental status has improved, able to tell us name place and the year. 06/21. Patient seen and examined. Repeat brain CT done on 06/19 showed no acute intra cranial process. Patient sister at the bedside, states patient back to baseline. Discussed with them regarding REVIEW OF SYSTEMS: Denies any chest pain. Denies any nausea or vomiting. Denies abdominal pain. PHYSICAL EXAMINATION: GENERAL: The patient is alert to self, laying comfortably in the bed. HEENT: Pupils are round and equally reacting to light. EOMI. No scleral icterus. No conjunctival pallor. Normocephalic, atraumatic. No pharyngeal erythema. No thyromegaly. CARDIOVASCULAR: S1 and S2 present. No murmurs, rubs, or gallops. PULMONARY: Chest is clear to auscultation, no wheezing or crackles. ABDOMEN: Soft, nontender, nondistended, normoactive bowel sounds. No palpable organomegaly. MUSCULOSKELETAL: No joint swelling or deformity. EXTREMITIES: No cyanosis, clubbing, or pedal edema. NEUROLOGICAL: Moving all extremities, speech is not slurred SKIN: Bruising seen on the left side of chest and back Assessment and plan Acute metabolic encephalopathy Hyponatremia Hypokalemia Fall History of COPD History of hypertension History of diabetes mellitus History of HIV History of hepatitis B Monitor vital signs Monitor CBC Monitor CMP Fall precautions Delirium precaution Avoid any narcotics and sedatives at this time Continue IV fluids Continue antiemetics EEG done showed no seizure-like activity, Patient does not want MRI brain, Neurology following Psych reeval patient on 06/20, recommended resuming Lamictal. Labs and medication were reviewed.. Continue same treatment. Continue with symptomatic treatment. Resume home medication. Monitor labs and vitals. DVT and GI prophylaxis. Further recommendations as per clinical course of the patient Dictation was produced using [employer] dictation software. please excuse any grammatical, word or spelling errors. Objective - Vital Signs Vital signs: Vital Signs Temp 97.5 F L 06/21/23 08:04 Pulse 89 06/21/23 08:04 Resp 15 06/21/23 08:04 BP 152/87 06/21/23 08:04 Pulse Ox 92 L 06/21/23 08:04 FiO2 Intake & Output 06/20/23 06/21/23 06/21/23 18:59 06:59 18:59 Intake Total 240 Output Total 800 Balance -560 Intake: Oral 240 Output: Urine 800 Uretheral (Norman) 800 Other: Voiding Method Indwelling Catheter Indwelling Catheter Toilet Bedside Commode Diaper # Voids 2 1 1 - Labs CBC & Chem 7: 06/21/23 10:41 06/21/23 10:41 Labs: Abnormal Lab Results - Last 24 Hours (Table) 06/20/23 06/20/23 Range/Units 06:16 06:16 Hgb 15.7 H (12.0-15.0) g/dL Immature Gran # 0.13 H (0.00-0.04) X 10*3/uL Sodium 128 L (135-145) mmol/L Carbon Dioxide 21.5 L (21.6-31.8) mmol/L Creatinine 0.5 L (0.6-1.5) mg/dL BUN/Creatinine Ratio 20.60 H (12.00-20.00) Ratio Glucose 118 H (70-110) mg/dL Total Protein 6.1 L (6.2-8.2) g/dL Microbiology - Last 24 Hours (Table) 06/17/23 15:47 Blood Culture - Preliminary Blood
[2023-06-21] MEDS: NON FORMULARY DRUG (Emtricitabine/Tenofov Alafenam [Descovy 200-25 Mg Tablet] 1 EACH Table PO SCH (14:40)
[2023-06-21] MEDS: NICOTINE 21MG/24HR PATCH TRANSDERM SCH (14:40)
[2023-06-21] MEDS: haloperidoL 5 MG TAB PO PRN (20:39)
[2023-06-21] MEDS: lamoTRIgine 100 MG TAB PO SCH (20:39)
[2023-06-21] MEDS: RALTEGRAVIR POTASSIUM 400 MG PO SCH (20:39)
[2023-06-21] MEDS ORDERED: Potassium Replacement Protocol 1 EACH MISC MISCELLANE PRN (20:50)
[2023-06-21] MEDS: POTASSIUM CHLORIDE ER 20 MEQ TAB.ER PO SCH ×2 (21:46→22:45)
[2023-06-22] MEDS: KETOROLAC 15 MG/ML 1 ML VIAL IVP PRN ×2 (04:47→10:40)
[2023-06-22 07:59] LABS: Basophils % (A) 0 %; Eosinophils # (A) 0.1 k/uL (0-0.7); Eosinophils % (A) 2 %; HCT 42.1 % (34.0-46.0); HGB 14.3 gm/dL (11.4-16.0); Lymphocytes % (A) 27 %; MCH 32.2 pg (25.0-35.0); MCV 94.6 fL (80.0-100.0); Mean Platelet Volume 7.7; Monocytes # (A) 0.3 k/uL (0-1.0); Monocytes % (A) 4 %; Neutrophils # (A) 4.8 k/uL (1.3-7.7); Neutrophils % (A) 63 %; Platelet Count 273 k/uL (150-450); RBC 4.45 m/uL (3.80-5.40); RDW 12.8 % (11.5-15.5); WBC 7.6 k/uL (3.8-10.6)
[2023-06-22] MEDS: LOSARTAN 25 MG TAB PO SCH (08:10)
[2023-06-22] MEDS: busPIRone HCl 10 MG TAB PO SCH ×2 (08:10→22:55)
[2023-06-22] MEDS: NICOTINE 21MG/24HR PATCH TRANSDERM SCH (08:10)
[2023-06-22] MEDS: DILTIAZEM CD 180 MG CAP.ER.24H PO SCH (08:10)
[2023-06-22] MEDS: NON FORMULARY DRUG (Emtricitabine/Tenofov Alafenam [Descovy 200-25 Mg Tablet] 1 EACH Table PO SCH (08:10)
[2023-06-22] MEDS: LINAGLIPTIN 5 MG TABLET PO SCH (08:10)
[2023-06-22] MEDS: FAMOTIDINE 20 MG TAB PO SCH ×2 (08:10→22:55)
[2023-06-22] MEDS: THIAMINE 100 MG TAB PO SCH (08:10)
[2023-06-22] MEDS: ATORVASTATIN 20 MG TAB PO SCH (08:10)
[2023-06-22] MEDS: PANTOPRAZOLE 40 MG TABLET PO SCH (08:10)
[2023-06-22 08:13] LABS: ALT 18 U/L (4-34); AST 20 U/L (14-36); African American GFR (CKD) >90 (>60 ml/min/1.73 sqM); Albumin 3.7 g/dL (3.5-5.0); Albumin/Globulin Ratio 1.5; Alkaline Phosphatase 51 U/L (38-126); Anion Gap 10 mmol/L; Blood Urea Nitrogen 8 mg/dL (7-17); Calcium 9.1 mg/dL (8.4-10.2); Carbon Dioxide 27 mmol/L (22-30); Chloride 98 mmol/L (98-107); Globulin 2.4 g/dL; Glucose 140 mg/dL (74-99); Non-African American GFR(CKD) >90 (>60 ml/min/1.73 sqM); Potassium 4.2 mmol/L (3.5-5.1); Sodium 135 mmol/L (137-145); Total Bilirubin 0.6 mg/dL (0.2-1.3); Total Protein 6.1 g/dL (6.3-8.2)
[2023-06-22] MEDS: SODIUM CHLORIDE 0.9% 1,000 ML IV SCH ×2 (09:38→10:33)
[2023-06-22] MEDS: BUTALB/APAP/CAFF 50-325-40MG TAB PO PRN (13:44)
--- NOTE | 2023-06-22 14:43 | P.PN ---
Subjective Progress Note Date: 06/22/23 patient is a 57-year-old lady with past medical history significant for COPD, hypertension, diabetes mellitus, hepatitis B, HIV presented to the ER for altered mental status and fall. History is very limited because of patient being a poor historian. EMS was called to patient's house by roommate. Patient apparently had fallen at home. Patient was acting very confused. Patient was following commands but was erratic. There was no complain of any chest pain. Patient was complaining of generalized pain but could not pinpoint where she was hurting. There was no complain of any fever or chills. No current nausea, vomiting abdominal pain. Initial lab work done in the ER showed WBC 11.7, hemoglobin 15, platelet count 227, sodium 132, potassium 3.9, chloride 98, BUN 9, creatinine 0.49, glucose 202, AST 19, AST 18, ammonia less than 9, Urine drug screen positive for benzodiazepines EKG done in the ER showed heart rate of 109 , no ST segment elevation or depression seen, no T-wave inversions seen. Chest x-ray done in the ER showed cardiomegaly and mild pulmonary vascular prominence CT head done showed no acute intracranial process CT cervical spine negative for evidence of cervical spine fracture Patient admitted to internal medicine service 06/18. Patient seen and examined. According to nursing staff patient is more awake, she keeps saying that she is in pain, unable to maintain a conversation. 06/19. Patient seen and examined. Patient continues to be confused, only alert to her name. Patient answers simple questions. Laying comfortably in the bed, on asking starts complaining of pain. Sodium level this morning is 124, potassium was 3.4. 06/20. Patient seen and examined. Mental status has improved, able to tell us name place and the year. 06/21. Patient seen and examined. Repeat brain CT done on 06/19 showed no acute intra cranial process. Patient sister at the bedside, states patient back to baseline. Discussed with them regarding rehab, patient family agreeable. 06/22. Patient seen and examined. Complaining of headache. Mental status is improved. REVIEW OF SYSTEMS: Denies any chest pain. Denies any nausea or vomiting. Denies abdominal pain. PHYSICAL EXAMINATION: GENERAL: The patient is alert, laying comfortably in the bed. HEENT: Pupils are round and equally reacting to light. EOMI. No scleral icterus. No conjunctival pallor. Normocephalic, atraumatic. No pharyngeal erythema. No th yromegaly. CARDIOVASCULAR: S1 and S2 present. No murmurs, rubs, or gallops. PULMONARY: Chest is clear to auscultation, no wheezing or crackles. ABDOMEN: Soft, nontender, nondistended, normoactive bowel sounds. No palpable organomegaly. MUSCULOSKELETAL: No joint swelling or deformity. EXTREMITIES: No cyanosis, clubbing, or pedal edema. NEUROLOGICAL: Moving all extremities, speech is not slurred SKIN: Bruising seen on the left side of chest and back Assessment and plan Acute metabolic encephalopathy Hyponatremia Hypokalemia Fall History of COPD History of hypertension History of diabetes mellitus History of HIV History of hepatitis B Monitor vital signs Monitor CBC Monitor CMP Fall precautions Delirium precaution Avoid any narcotics and sedatives at this time dc IV fluids Continue antiemetics EEG done showed no seizure-like activity, Patient does not want MRI brain, Neurology following Psych reeval patient on 06/20, recommended resuming Lamictal. Labs and medication were reviewed.. Continue same treatment. Continue with symptomatic treatment. Resume home medication. Monitor labs and vitals. DVT and GI prophylaxis. Further recommendations as per clinical course of the patient Dictation was produced using [employer] dictation software. please excuse any grammatical, word or spelling errors. Objective - Vital Signs Vital signs: Vital Signs Temp 97.6 F 06/22/23 13:01 Pulse 94 06/22/23 13:01 Resp 17 06/22/23 13:01 BP 137/79 06/22/23 13:01 Pulse Ox 97 06/22/23 13:01 FiO2 Intake & Output 06/21/23 06/22/23 06/22/23 18:59 06:59 18:59 Intake Total 900 300 480 Balance 900 300 480 Intake: Intake, IV Titration 900 Amount Sodium Chloride 0.9% 1, 900 000 ml @ 75 mls/hr IV . [id number] [facility] Rx#:[id number] Oral 300 480 Other: Voiding Method Toilet Toilet Toilet Bedside Commode Bedside Commode Bedside Commode Diaper Diaper Diaper # Voids 1 1 4 - Labs CBC & Chem 7: 06/22/23 07:36 12/31/23 07:36 Labs: Abnormal Lab Results - Last 24 Hours (Table) 06/22/23 Range/Units 07:36 Sodium 135 L (137-145) mmol/L Glucose 140 H (74-99) mg/dL Total Protein 6.1 L (6.3-8.2) g/dL
--- NOTE | 2023-06-22 16:27 | P.PN ---
Subjective Progress Note Date: 06/22/23 Principal diagnosis: Reason for follow-up is HIV Patient is a 57-year-old female with a past medical history significant for COPD diabetes mellitus hypertension HIV for the patient is currently on Isentress and Descovy patient last blood work for HIV was on 04/11/2023 with the patient did have a CD4 count of 1602 at the patient i brought to the hospital for evaluation of evaluation of mental status changes and question of drug overdose. On today's evaluation that is 06/22/2023 patient remains to be afebrile the patient is breathing comfortably on room air the patient is more awake and alert did have some occasional headache but denies having any nausea no vomiting no abdominal pain or any diarrhea. Patient did have white count of 7.6, creatinine 0.55 Objective - Vital Signs Vital signs: Vital Signs Temp 97.6 F 06/22/23 13:01 Pulse 94 06/22/23 13:01 Resp 17 06/22/23 13:01 BP 137/79 06/22/23 13:01 Pulse Ox 97 06/22/23 13:01 FiO2 Intake & Output 06/21/23 06/22/23 06/22/23 18:59 06:59 18:59 Intake Total 900 300 480 Balance 900 300 480 Intake: Intake, IV Titration 900 Amount Sodium Chloride 0.9% 1, 900 000 ml @ 75 mls/hr IV . [id number] [facility] Rx#:[id number] Oral 300 480 Other: Voiding Method Toilet Toilet Toilet Bedside Commode Bedside Commode Bedside Commode Diaper Diaper Diaper # Voids 1 1 4 - Exam GENERAL DESCRIPTION: A middle-aged female lying in bed in no distress RESPIRATORY SYSTEM: Unlabored breathing , decreased breath sounds at bases HEART: S1 S2 regular rate and rhythm , ABDOMEN: Soft , no tenderness EXTREMITIES: No edema feet - Labs CBC & Chem 7: 06/22/23 07:36 06/22/23 07:36 Labs: Abnormal Lab Results - Last 24 Hours (Table) 06/22/23 Range/Units 07:36 Sodium 135 L (137-145) mmol/L Glucose 140 H (74-99) mg/dL Total Protein 6.1 L (6.3-8.2) g/dL Assessment and Plan (1) HIV (human immunodeficiency virus infection) Current Visit: Yes Status: Acute Code(s): B20 - HUMAN IMMUNODEFICIENCY VIRUS [HIV] DISEASE SNOMED Code(s): 03906869 (2) Encephalopathy acute Current Visit: Yes Status: Acute Code(s): G93.40 - ENCEPHALOPATHY, UNSPECIFIED SNOMED Code(s): 22515805 Plan: 1patient presented to hospital mental status changes questionably drug overdose as the patient urine is positive for benzos patient currently not running any fever white count no significant elevated, clinical suspicion low for infectious etiology 2patient with HIV very well-controlled with a last CD4 count of 1602 that will make any opportunistic infection less likely 3patient did have normal procalcitonin CRP is 1.40 blood cultures are Are so far negative clinical suspicious low for infectious etiology for her underlying mental status changes and is being worked up by neurology and psych 4patient friend was able to bring her home medication and the patient was s tarted on Isentress and Descovy to continue and monitor clinical course closely Dictation was produced using [employer] dictation software. please excuse any grammatical, word or spelling errors.
[2023-06-22 20:41] LABS: Glucose,Whole Blood 111 mg/dL (70-110)
[2023-06-22] MEDS: LORazepam 2 MG/ML INJ IV PRN (22:54)
[2023-06-22] MEDS: lamoTRIgine 100 MG TAB PO SCH (22:55)
[2023-06-22] MEDS: RALTEGRAVIR POTASSIUM 400 MG PO SCH (23:01)
[2023-06-23 03:54] LABS: Glucose,Whole Blood 162 mg/dL (70-110)
[2023-06-23] MEDS: LORazepam 2 MG/ML INJ IV PRN (06:15)
[2023-06-23 06:31] LABS: Glucose,Whole Blood 220 mg/dL (70-110)
[2023-06-23 08:24] VITALS: BP 134/76; PULSE 97; RESP 17; TEMP 98.5
[2023-06-23] MEDS ORDERED: ACETAMINOPHEN TAB 325 MG TAB PO PRN (08:44)
[2023-06-23] MEDS ORDERED: ACETAMINOPHEN TAB 325 MG TAB PO STA (08:44)
[2023-06-23] MEDS: busPIRone HCl 10 MG TAB PO SCH (09:03)
[2023-06-23] MEDS: THIAMINE 100 MG TAB PO SCH (09:03)
[2023-06-23] MEDS: NICOTINE 21MG/24HR PATCH TRANSDERM SCH (09:03)
[2023-06-23] MEDS: LINAGLIPTIN 5 MG TABLET PO SCH (09:03)
[2023-06-23] MEDS: DILTIAZEM CD 180 MG CAP.ER.24H PO SCH (09:03)
[2023-06-23] MEDS: ATORVASTATIN 20 MG TAB PO SCH (09:03)
[2023-06-23] MEDS: LOSARTAN 25 MG TAB PO SCH (09:03)
[2023-06-23] MEDS: FAMOTIDINE 20 MG TAB PO SCH (09:03)
[2023-06-23] MEDS: PANTOPRAZOLE 40 MG TABLET PO SCH (09:03)
[2023-06-23] MEDS: NON FORMULARY DRUG (Emtricitabine/Tenofov Alafenam [Descovy 200-25 Mg Tablet] 1 EACH Table PO SCH (09:05)
[2023-06-23] MEDS: BUTALB/APAP/CAFF 50-325-40MG TAB PO PRN (09:59)
[2023-06-23 11:59] LABS: Glucose,Whole Blood 139 mg/dL (70-110)
--- NOTE | 2023-06-23 13:04 | P.PN ---
Subjective Progress Note Date: 06/23/23 patient is a 57-year-old lady with past medical history significant for COPD, hypertension, diabetes mellitus, hepatitis B, HIV presented to the ER for altered mental status and fall. History is very limited because of patient being a poor historian. EMS was called to patient's house by roommate. Patient apparently had fallen at home. Patient was acting very confused. Patient was following commands but was erratic. There was no complain of any chest pain. Patient was complaining of generalized pain but could not pinpoint where she was hurting. There was no complain of any fever or chills. No current nausea, vomiting abdominal pain. Initial lab work done in the ER showed WBC 11.7, hemoglobin 15, platelet count 227, sodium 132, potassium 3.9, chloride 98, BUN 9, creatinine 0.49, glucose 202, AST 19, AST 18, ammonia less than 9, Urine drug screen positive for benzodiazepines EKG done in the ER showed heart rate of 109 , no ST segment elevation or depression seen, no T-wave inversions seen. Chest x-ray done in the ER showed cardiomegaly and mild pulmonary vascular prominence CT head done showed no acute intracranial process CT cervical spine negative for evidence of cervical spine fracture Patient admitted to internal medicine service 06/18. Patient seen and examined. According to nursing staff patient is more awake, she keeps saying that she is in pain, unable to maintain a conversation. 06/19. Patient seen and examined. Patient continues to be confused, only alert to her name. Patient answers simple questions. Laying comfortably in the bed, on asking starts complaining of pain. Sodium level this morning is 124, potassium was 3.4. 06/20. Patient seen and examined. Mental status has improved, able to tell us name place and the year. 06/21. Patient seen and examined. Repeat brain CT done on 06/19 showed no acute intra cranial process. Patient sister at the bedside, states patient back to baseline. Discussed with them regarding rehab, patient family agreeable. 06/22. Patient seen and examined. Complaining of headache. Mental status is improved. 06/23. Patient seen and examined. Patient keen to go home. Does not want to stay in the hospital or wants to go to rehab. Discussed with patient's sister and she is agreeable. Waiting on psychiatry to reevaluate the patient. Family wanted patient to be off the Plavix, which is reasonable as patient has been falling at home and has multiple bruises. REVIEW OF SYSTEMS: Denies any chest pain. Denies any nausea or vomiting. Denies abdominal pain. PHYSICAL EXAMINATION: GENERAL: The patient is alert, laying comfortably in the bed. HEENT: Pupils are round and equally reacting to light. EOMI. No scleral icterus. No conjunctival pallor. Normocephalic, atraumatic. No pharyngeal erythema. No thyromegaly. CARDIOVASCULAR: S1 and S2 present. No murmurs, rubs, or gallops. PULMONARY: Chest is clear to auscultation, no wheezing or crackles. ABDOMEN: Soft, nontender, nondistended, normoactive bowel sounds. No palpable organomegaly. MUSCULOSKELETAL: No joint swelling or deformity. EXTREMITIES: No cyanosis, clubbing, or pedal edema. NEUROLOGICAL: Moving all extremities, speech is not slurred SKIN: Bruising seen on the left side of chest and back Assessment and plan Acute metabolic encephalopathy Hyponatremia Hypokalemia Fall History of COPD History of hypertension History of diabetes mellitus History of HIV History of hepatitis B Monitor vital signs Monitor CBC Monitor CMP Fall precautions Delirium precaution Avoid any narcotics and sedatives at this time Plavix discontinued at patient and family request as patient has been falling and multiple bruises. Continue antiemetics EEG done showed no seizure-like activity, Neurology following Psych reeval patient on 06/20, recommended resuming Lamictal. Requested psychiatry to evaluated the patient on 06/23 Labs and medication were reviewed.. Continue same treatment. Continue with symptomatic treatment. Resume home medication. Monitor labs and vitals. DVT and GI prophylaxis. Further recommendations as per clinical course of the urb[place] ent Dictation was produced using [employer] dictation software. please excuse any grammatical, word or spelling errors. Objective - Vital Signs Vital signs: Vital Signs Temp 98.5 F 06/23/23 08:00 Pulse 97 06/23/23 08:00 Resp 17 06/23/23 08:00 BP 134/76 06/23/23 08:00 Pulse Ox 100 06/23/23 08:00 FiO2 Intake & Output 06/22/23 06/23/23 06/23/23 18:59 06:59 18:59 Intake Total 480 Balance 480 Intake: Oral 480 Other: Voiding Method Toilet Toilet Toilet Bedside Commode Bedside Commode Diaper Diaper # Voids 4 3 - Labs CBC & Chem 7: 06/22/23 07:36 06/22/23 07:36 Labs: Abnormal Lab Results - Last 24 Hours (Table) 06/22/23 06/23/23 06/23/23 Range/Units 20:39 03:49 06:29 POC Glucose (mg/dL) 111 H 162 H 220 H (70-110) mg/dL 06/23/23 Range/Units 11:58 POC Glucose (mg/dL) 139 H (70-110) mg/dL Microbiology - Last 24 Hours (Table) 06/17/23 15:47 Blood Culture - Final Blood
--- NOTE | 2023-06-23 13:16 | P.PN ---
Progress Note - Text Progress Note Date: 06/23/23 Interval History: Patient was seen today for psychiatric follow-up regarding patient's delirium alcohol abuse/withdrawal. History of bipolar disorder. Patient states that she is doing better today. She was alert and oriented 3. She claims she "must have drank too much" and states that she was very confused and disoriented before coming in the hospital. Condition is doing a lot better now, denies any depression or anxiety. States that she is not having any withdrawal symptoms at this time. Claims that she was able to sleep very left-sided eating well. She claims that she has been getting prescribed her psychiatric medications by her primary care doctor and wants to be referred to [facility]. States that she does not want to go rehab at this time however does have acamprosate at home that she can resume taking once she is discharged. At this time patient denies any suicidal or homical ideations, intent or plan. Patient denies any auditory, visual hallucinations and denies any paranoia or delusions. Patient denies any side effects from the medications and has been compliant with meds. Mental Status Exam: General Appearance: Patient appears to be mildly overweight, several tattoos, short hair, stated age is alert, directable, and cooperative. Behavior: Patient is calmly seated without any agitated behavior. Cooperative Speech: Patient's speech is fluent and nonpressured. Mood/Affect: Mood is improving mildly, affect is congruent and constricted. Suicidality/Homicidality: Patient denies having any suicidal or homicidal ideation intent or plan. Perceptions: Patient denies any visual hallucinations and denies any auditory hallucinations Though content/process: There is no evidence of any delusional thought content and thought process is linear and goal-directed. Memory and concentration: AOX3, grossly intact for the purposes of this session Judgment and insight: Improving mildly Assessment Delirium, unknown etiology Bipolar disorder by history Alcohol use disorder PLAN: -At this time patient DOES NOT meet criteria for inpatient psychiatric admission . -Would recommend the following medication changes/additions: Discontinue Ativan at this time. Patient is agreeable to restart Geodon at lower dose 40 mg twice a day for mood stabilization. Resume Lamictal 300 mg daily at bedtime as prescribed for mood stabilization, BuSpar 30 mg twice a day for anxiety. Patient states that she has acamprosate at home and will resume taking it once she is discharged 333 mg 3 times a day for alcohol cravings. -metal engineering process worker to provide patient with outpatient mental health/psychiatry resources for appropriate follow up upon discharge -[employer] spoke with patient about substance abuse and the harmful effects on medical and mental health, patient verbally understood and agreed. -metal engineering process worker to provide patient substance use treatment resources including AA /NA meetings in the community. -Patient was offered inpatient rehab however is refusing at this time and would rather do outpatient treatment. -Communicated plan to patient's nurse -Psychiatry will sign off at this time -Please contact with any questions.
[2023-06-23] MEDS ORDERED: ZIPRASIDONE 40 MG CAP PO SCH (13:45)
--- NOTE | 2023-06-23 14:20 | P.PN ---
Subjective Progress Note Date: 06/23/23 Principal diagnosis: Reason for follow-up is HIV Patient is a 57-year-old female with a past medical history significant for COPD diabetes mellitus hypertension HIV for the patient is currently on Isentress and Descovy patient last blood work for HIV was on 04/11/2023 with the patient did have a CD4 count of 1602 at the patient i brought to the hospital for evaluation of evaluation of mental status changes and question of drug overdose. On today's evaluation that is 06/23/2023 the patient continues to be afebrile, the patient is breathing comfortably on room air without need for supplemental oxygen patient denies having any chest pain shortness of breath or cough no nausea vomiting abdominal pain diarrhea patient mention feeling better and wants to go home. No new labs has been obtained today, blood culture has been negative Objective - Vital Signs Vital signs: Vital Signs Temp 98.5 F 06/23/23 08:00 Pulse 97 06/23/23 08:00 Resp 17 06/23/23 08:00 BP 134/76 06/23/23 08:00 Pulse Ox 100 06/23/23 08:00 FiO2 Intake & Output 06/22/23 06/23/23 06/23/23 18:59 06:59 18:59 Intake Total 480 Balance 480 Intake: Oral 480 Other: Voiding Method Toilet Toilet Toilet Bedside Commode Bedside Commode Diaper Diaper # Voids 4 3 - Exam GENERAL DESCRIPTION: A middle-aged female lying in bed in no distress RESPIRATORY SYSTEM: Unlabored breathing , decreased breath sounds at bases HEART: S1 S2 regular rate and rhythm , ABDOMEN: Soft , no tenderness EXTREMITIES: No edema feet - Labs CBC & Chem 7: 06/22/23 07:36 06/22/23 07:36 Labs: Abnormal Lab Results - Last 24 Hours (Table) 06/22/23 06/23/23 06/23/23 Range/Units 20:39 03:49 06:29 POC Glucose (mg/dL) 111 H 162 H 220 H (70-110) mg/dL 06/23/23 Range/Units 11:58 POC Glucose (mg/dL) 139 H (70-110) mg/dL Microbiology - Last 24 Hours (Table) 06/17/23 15:47 Blood Culture - Final Blood Assessment and Plan (1) HIV (human immunodeficiency virus infection) Current Visit: Yes Status: Acute Code(s): B20 - HUMAN IMMUNODEFICIENCY VIRUS [HIV] DISEASE SNOMED Code(s): 97988190 (2) Encephalopathy acute Current Visit: Yes Status: Acute Code(s): G93.40 - ENCEPHALOPATHY, UNSP ECIFIED SNOMED Code(s): 05601512 Plan: 1patient presented to hospital mental status changes questionably drug overdose as the patient urine is positive for benzos patient currently not running any fever white count no significant elevated, clinical suspicion low for infectious etiology 2patient with HIV very well-controlled with a last CD4 count of 1602 that will make any opportunistic infection less likely 3patient did have normal procalcitonin CRP is 1.40 , And the blood culture has been negative patient did have improvement her mentation without receiving any antibiotics or antiviral therapy and will monitor the patient closely off antibiotic. 4for HIV the patient to continue with the Isentress and Descovy Dictation was produced using [employer] dictation software. please excuse any grammatical, word or spelling errors. Time with Patient: Less than 30
--- NOTE | 2023-06-29 15:13 | P.DS ---
Providers Date of admission: 06/17/23 07:29 Expected date of discharge: 06/23/23 Attending physician: Vivi Zhang Consults: 06/17/23 07:25 Consult Physician Routine Consulting Provider: Enio Starr Consult Reason/Comments: Altered Mental status Do you want consulting provider notified?: Already Contacted Consult Physician Routine Consulting Provider: Brianna Toscano Consult Reason/Comments: Altered mental status Do you want consulting provider notified?: Yes 06/17/23 12:26 Consult Physician Routine Consulting Provider: Mary Garcia Consult Reason/Comments: AMS, agitation, HIV positive Do you want consulting provider notified?: Yes Primary care physician: Joanne Aguayo Hospital Course: Discharge diagnoses; Acute metabolic encephalopathy Hyponatremia Hypokalemia Fall History of COPD History of hypertension History of diabetes mellitus History of HIV History of hepatitis B Hospital course; patient is a 57-year-old lady with past medical history significant for COPD, hypertension, diabetes mellitus, hepatitis B, HIV presented to the ER for altered mental status and fall. History is very limited because of patient being a poor historian. EMS was called to patient's house by roommate. Patient apparently had fallen at home. Patient was acting very confused. Patient was following commands but was erratic. There was no complain of any chest pain. Patient was complaining of generalized pain but could not pinpoint where she was hurting. There was no complain of any fever or chills. No current nausea, vomiting abdominal pain. Initial lab work done in the ER showed WBC 11.7, hemoglobin 15, platelet count 227, sodium 132, potassium 3.9, chloride 98, BUN 9, creatinine 0.49, glucose 202, AST 19, AST 18, ammonia less than 9, Urine drug screen positive for benzodiazepines EKG done in the ER showed heart rate of 109 , no ST segment elevation or depression seen, no T-wave inversions seen. Chest x-ray done in the ER showed cardiomegaly and mild pulmonary vascular prominence CT head done showed no acute intracranial process CT cervical spine negative for evidence of cervical spine fracture Patient admitted to internal medicine service 06/18. Patient seen and examined. According to nursing staff patient is more awake, she keeps saying that she is in pain, unable to maintain a conversation. 06/19. Patient seen and examined. Patient continues to be confused, only alert to her name. Patient answers simple questions. Laying comfortably in the bed, on asking starts complaining of pain. Sodium level this morning is 124, potassium was 3.4. 06/20. Patient seen and examined. Mental status has improved, able to tell us name place and the year. 06/21. Patient seen and examined. Repeat brain CT done on 06/19 showed no acute intra cranial process. Patient sister at the bedside, states patient back to baseline. Discussed with them regarding rehab, patient family agreeable. 06/22. Patient seen and examined. Complaining of headache. Mental status is improved. 06/23. Patient seen and examined. Patient keen to go home. Does not want to stay in the hospital or wants to go to rehab. Discussed with patient's sister and she is agreeable. Psychiatry evaluated the patient, adjusted patient's psych medications.. Family wanted patient to be off the Plavix, which is reasonable as patient has been falling at home and has multiple bruises. PHYSICAL EXAMINATION: GENERAL: The patient is alert and oriented x3, not in any acute distress. Well developed, well nourished. HEENT: Pupils are round and equally reacting to light. EOMI. No scleral icterus. No conjunctival pallor. Normocephalic, atraumatic. No pharyngeal erythema. No thyromegaly. CARDIOVASCULAR: S1 and S2 present. No murmurs, rubs, or gallops. PULMONARY: Chest is clear to auscultation, no wheezing or crackles. ABDOMEN: Soft, nontender, nondistended, normoactive bowel sounds. No palpable organomegaly. MUSCULOSKELETAL: No joint swelling or deformity. EXTREMITIES: No cyanosis, clubbing, or pedal edema. NEUROLOGICAL: Gross neurological examination did not reveal any focal deficits. SKIN: No rashes. Dictation was produced using [employer] dictation software. please excuse any grammatical, word or spelling errors. Plan - Discharge Summary New Discharge Prescriptions: New Ziprasidone [Geodon] 40 mg PO BID 15 Days #30 cap Continue Losartan [Cozaar] 25 mg PO DAILY sitaGLIPtin [Januvia] 100 mg PO DAILY Ipratropium-Albuterol Nebulize [Duoneb 0.5 mg-3 mg/3 ml Soln] 3 ml INHALATION RT-TID PRN PRN Reason: Shortness Of Breath Emtricitabine/Tenofov Alafenam [Descovy 200-25 mg Tablet] 1 tab PO DAILY busPIRone HCL [Buspar] 30 mg PO BID Albuterol Sulfate [Albuterol Sulfate Hfa] 2 puff INHALATION RT-Q4H PRN PRN Reason: Shortness Of Breath Acamprosate Calcium [Campral] 333 mg PO TID Diltiazem Cd [Cardizem CD] 180 mg PO DAILY #30 cap Nitroglycerin Sl Tabs [Nitrostat] 0.4 mg SL Q5M PRN PRN Reason: Chest Pain Omeprazole [PriLOSEC] 40 mg PO DAILY Rosuvastatin [Crestor] 10 mg PO DAILY Ubrogepant [Ubrelvy] 100 mg PO BID PRN PRN Reason: Migraine Headache Nystatin 100,000 Unit/gm Powd [Mycostatin Powder] 1 applic TOPICAL BID Loratadine [Claritin] 10 mg PO DAILY metFORMIN HCL ER [Glucophage XR] 1,000 mg PO DAILY lamoTRIgine [lamoTRIgine ER] 300 mg PO HS Raltegravir Potassium [Isentress] 800 mg PO HS Canagliflozin [Invokana] 100 mg PO AC-BRKFST Fremanezumab-Vfrm [Ajovy Syringe] 225 mg SQ Q90D Discontinued ziprasidone HCL [Geodon] 80 mg PO BID clomiPRAMINE HCL 75 mg PO DAILY clomiPRAMINE HCL 150 mg PO HS Clopidogrel [Plavix] 75 mg PO DAILY #30 tab Discharge Medication List Acamprosate Calcium [Campral] 333 mg PO TID 04/18/22 [History] Albuterol Sulfate [Albuterol Sulfate Hfa] 2 puff INHALATION RT-Q4H PRN 04/18/22 [History] Canagliflozin [Invokana] 100 mg PO AC-BRKFST 04/18/22 [History] Emtricitabine/Tenofov Alafenam [Descovy 200-25 mg Tablet] 1 tab PO DAILY 04/18/22 [History] Fremanezumab-Vfrm [Ajovy Syringe] 225 mg SQ Q90D 04/18/22 [History] Ipratropium-Albuterol Nebulize [Duoneb 0.5 mg-3 mg/3 ml Soln] 3 ml INHALATION RT-TID PRN 04/18/22 [History] Loratadine [Claritin] 10 mg PO DAILY 04/18/22 [History] Losartan [Cozaar] 25 mg PO DAILY 04/18/22 [History] Nystatin 100,000 Unit/gm Powd [Mycostatin Powder] 1 applic TOPICAL BID 04/18/22 [History] Raltegravir Potassium [Isentress] 800 mg PO HS 04/18/22 [History] Ubrogepant [Ubrelvy] 100 mg PO BID PRN 04/18/22 [History] busPIRone HCL [Buspar] 30 mg PO BID 04/18/22 [History] lamoTRIgine [lamoTRIgine ER] 300 mg PO HS 04/18/22 [History] metFORMIN HCL ER [Glucophage XR] 1,000 mg PO DAILY 04/18/22 [History] sitaGLIPtin [Januvia] 100 mg PO DAILY 04/18/22 [History] Diltiazem Cd [Cardizem CD] 180 mg PO DAILY #30 cap 04/19/22 [Rx] Nitroglycerin Sl Tabs [Nitrostat] 0.4 mg SL Q5M PRN 04/24/22 [History] Omeprazole [PriLOSEC] 40 mg PO DAILY 06/17/23 [History] Rosuvastatin [Crestor] 10 mg PO DAILY 06/17/23 [History] Ziprasidone [Geodon] 40 mg PO BID 15 Days #30 cap 06/23/23 [Rx] Follow up Appointment(s)/Referral(s): Joanne Aguayo MD [Primary Care Provider] - 1-2 days Patient Instructions/Handouts: Alcohol Intoxication (DC), Abuse of Alcohol (DC), Altered Mental Status (GEN) Discharge/Stand Alone Forms: AA Meetings [address] - [facility], AA Meetings [place], Community Resources, Help In The Home, Outpatient Counseling, In Substance Abuse Facilities Discharge Disposition: HOME SELF-CARE
== END 2023-06-23 14:29 | disposition home or self-care (01) | DRG 92 ==
LOC: EC 05:11 → 5NMEDONC 07:29 → 4SSUR 06-22 18:05
PROVIDERS: ADMIT Internal Medicine; ATTEND Internal Medicine
DX: G92.8 Other toxic encephalopathy (principal); B20 Human immunodeficiency virus [HIV] disease; F05 Delirium due to known physiological condition; E87.1 Hypo-osmolality and hyponatremia; I11.9 Hypertensive heart disease without heart failure; F03.90 Unspecified dementia, unspecified severity, without behavioral disturbance, psychotic disturbance, mood disturbance, and anxiety; E11.9 Type 2 diabetes mellitus without complications; F31.9 Bipolar disorder, unspecified; J44.9 Chronic obstructive pulmonary disease, unspecified; E78.5 Hyperlipidemia, unspecified; E87.6 Hypokalemia; F10.10 Alcohol abuse, uncomplicated; F17.210 Nicotine dependence, cigarettes, uncomplicated; Z79.02 Long term (current) use of antithrombotics/antiplatelets; Z79.84 Long term (current) use of oral hypoglycemic drugs; Z79.899 Other long term (current) drug therapy; Z86.19 Personal history of other infectious and parasitic diseases; Z86.16 Personal history of COVID-19; Z88.8 Allergy status to other drugs, medicaments and biological substances; W19.XXXA Unspecified fall, initial encounter; Y92.009 Unspecified place in unspecified non-institutional (private) residence as the place of occurrence of the external cause
CPT/HCPCS: 36415; 51702; 70450; 71045; 72125; 80053; 80306; 80320; 81003; 82140; 82607; 82746; 83036; 83605; 84132; 84145; 84439; 84443; 84484; 85025; 85610; 85730; 86140; 87040; 93005; 94760; 95816; 96361; 96365; 96366; 96375; 96376; 99285

== ENCOUNTER 2023-06-27 15:29 | Emergency (ER) | payer MEDICARE, OTHER ==
--- NOTE | 2023-06-27 15:48 | ED ---
General Adult HPI - General Source: patient, EMS, RN notes reviewed Mode of arrival: EMS Limitations: no limitations <Brian Kaur - Last Filed: 06/27/23 15:46> <Abraham Ordonez - Last Filed: 06/28/23 04:00> - General Stated complaint: Headache Time Seen by Provider: 06/27/23 15:47 - History of Present Illness Initial comments: 57-year-old female presents emergency Department chief complaint of a headache. Patient states that that she's had a headache for a week. She does have a history of migraines. Patient states she has rhinorrhea and cough today. Patient states she's been vomiting. Patient denies any refer her medications. (Brian Kaur) 57-year-old female presenting with chief complaint of headache. Patient states that the headache has been present for about a week. Present primarily on the right side with focus to the temporal region. Patient has a history of migraines. She was recently admitted and records show that she was complaining of headache throughout her stay, she was evaluated by neurology. She admits to runny nose and a cough today. She admits to some nausea and vomiting as well. No chest pain or difficulty breathing. No vision or hearing changes. No numbness, tingling, weakness. No injury or trauma. (Abraham Ordonez) - Related Data Home Medications Medication Instructions Recorded Confirmed Acamprosate Calcium [Campral] 333 mg PO TID 04/18/22 06/17/23 Albuterol Sulfate [Albuterol 2 puff INHALATION RT-Q4H PRN 04/18/22 06/17/23 Sulfate Hfa] Canagliflozin [Invokana] 100 mg PO AC-BRKFST 04/18/22 06/17/23 Emtricitabine/Tenofov Alafenam 1 tab PO DAILY 04/18/22 06/17/23 [Descovy 200-25 mg Tablet] Fremanezumab-Vfrm [Ajovy Syringe] 225 mg SQ Q90D 04/18/22 06/17/23 Ipratropium-Albuterol Nebulize 3 ml INHALATION RT-TID PRN 04/18/22 06/17/23 [Duoneb 0.5 mg-3 mg/3 ml Soln] Loratadine [Claritin] 10 mg PO DAILY 04/18/22 06/17/23 Losartan [Cozaar] 25 mg PO DAILY 04/18/22 06/17/23 Nystatin 100,000 Unit/gm Powd 1 applic TOPICAL BID 04/18/22 06/17/23 [Mycostatin Powder] Raltegravir Potassium [Isentress] 800 mg PO HS 04/18/22 06/17/23 Ubrogepant [Ubrelvy] 100 mg PO BID PRN 04/18/22 06/17/23 busPIRone HCL [Buspar] 30 mg PO BID 04/18/22 06/17/23 lamoTRIgine [lamoTRIgine ER] 300 mg PO HS 04/18/22 06/17/23 metFORMIN HCL ER [Glucophage XR] 1,000 mg PO DAILY 04/18/22 06/17/23 sitaGLIPtin [Januvia] 100 mg PO DAILY 04/18/22 06/17/23 Nitroglycerin Sl Tabs [Nitrostat] 0.4 mg SL Q5M PRN 04/24/22 06/17/23 Omeprazole [PriLOSEC] 40 mg PO DAILY 06/17/23 06/17/23 Rosuvastatin [Crestor] 10 mg PO DAILY 06/17/23 06/17/23 Previous Rx's Medication Instructions Recorded Diltiazem Cd [Cardizem CD] 180 mg PO DAILY #30 cap 04/19/22 Ziprasidone [Geodon] 40 mg PO BID 15 Days #30 cap 06/23/23 Allergies Allergy/AdvReac Type Severity Reaction Status Date / Time propranolol [From Inderal LA] Allergy Anaphylaxis Verified 06/27/23 16:30 Review of Systems ROS Other: All systems not noted in ROS Statement are negative. <Brian Kaur - Last Filed: 06/27/23 15:46> ROS Other: All systems not noted in ROS Statement are negative. <Abraham Ordonez - Last Filed: 06/28/23 04:00> ROS Statement: Those systems with pertinent positive or pertinent negative responses have been documented in the HPI. Past Medical History Past Medical History: Chest Pain / Angina, COPD, Diabetes Mellitus, Hypertension Additional Past Medical History / Comment(s): HEP B, HIV,COVID History of Any Multi-Drug Resistant Organisms: None Reported Past Surgical History: Hernia Repair Past Anesthesia/Blood Transfusion Reactions: No Reported Reaction Past Psychological History: Bipolar Smoking Status: Current every day smoker Past Alcohol Use History: Abuse, Daily Past Drug Use History: Marijuana <Brian Kaur - Last Filed: 06/27/23 15:46> General Exam <Brian Kaur - Last Filed: 06/27/23 15:46> Limitations: no limitations General appearance: alert, in no apparent distress Head exam: Present: atraumatic, normocephalic Eye exam: Present: normal appearance, PERRL, EOMI Pupils: Present: normal accommodation Neck exam: Present: normal inspection Respiratory exam: Present: normal lung sounds bilaterally. Absent: respiratory distress, wheezes, rales, rhonchi, stridor Cardiovascular Exam: Present: regular rate, normal rhythm, normal heart sounds. Absent: systolic murmur, diastolic murmur, rubs, gallop, clicks Extremities exam: Present: normal inspection Neurological exam: Present: alert, oriented X3 Expanded Patient oriented to: Present: person, place, time Speech: Present: fluid speech Cranial nerves: EOM's Intact: Normal Cerebellar function: Finger to Nose: Normal, Heel to Avalos: Normal Motor strength exam: RUE: 5, LUE: 5, RLE: 5, LLE: 5 Eye Response: (4) open spontaneously Motor Response: (6) obeys commands Verbal Response: (5) oriented Orestes Total: 15 Psychiatric exam: Present: normal affect, normal mood Skin exam: Present: warm, dry <Abraham Ordonez - Last Filed: 06/28/23 04:00> - General Exam Comments Initial Comments: Visual Physical Exam Vital signs reviewed General: Well-appearing, nontoxic, no acute distress. Head: Normocephalic, atraumatic Eyes: PERRLA, EOMI ENT: Airway patent Chest: Nonlabored breathing Skin: No visual rash, normal skin tone Neuro: Alert and oriented 3 Musculoskeletal: No gross abnormalities (Brian Kaur) Course Vital Signs 06/27/23 06/28/23 16:30 03:07 Temperature 98.9 F Pulse Rate 97 113 H Respiratory 18 18 Rate Blood Pressure 156/74 127/74 O2 Sat by Pulse 97 98 Oximetry Medical Decision Making <Brian Kaur - Last Filed: 06/27/23 15:46> - Lab Data Result diagrams: 06/27/23 21:38 06/27/23 21:38 <Abraham Ordonez - Last Filed: 06/28/23 04:00> - Medical Decision Making I completed the quick note portion of this chart signed Brian Kaur PA-C (Brian Kaur) Was pt. sent in by a medical professional or institution (, PA, DIRECTOR ENGINEERING, urgent care, hospital, or senior living...) When possible be specific @ -No Did you speak to anyone other than the patient for history (EMS, parent, family, police, friend...)? What history was obtained from this source @ -No Did you review nursing and triage notes (agree or disagree)? Why? @ -I reviewed and agree with nursing and triage notes Were old charts reviewed (outside hosp., previous admission, EMS record, old EKG, old radiological studies, urgent care reports/EKG's, senior living records)? Report findings @ -No old charts were reviewed Differential Diagnosis (chest pain, altered mental status, abdominal pain women, abdominal pain men, vaginal bleeding, weakness, fever, dyspnea, syncope, headache, dizziness, GI bleed, back pain, seizure, CVA, palpatations, mental health, musculoskeletal)? @ -MDM Differential Headache: Migraine, tension, cluster, carbon monoxide, central venous thrombosis, pension karma temporal arteritis, acute closure glaucoma, intercranial hemorrhage, mastoiditis, sinusitis, head injury this is not meant to be an all-inclusive list. EKG interpreted by me (3pts min.). @ -As above X-rays interpreted by me (1pt min.). @ -None done CT interpreted by me (1pt min.). @ -CT brain shows no acute process U/S interpreted by me (1pt. min.). @ -None done What testing was considered but not performed or refused? (CT, X-rays, U/S, labs)? Why? @ -None What meds were considered but not given or refused? Why? @ -None Did you discuss the management of the patient with other professionals (professionals i.e. , AKSHAT, DIRECTOR ENGINEERING, lab, RT, psych nurse, psychiatric social worker supervisor, soil surveyor, teacher, strike warfare/missile systems officer, counseling case manager)? Give summary @ -No Was smoking cessation discussed for >3mins.? @ -No Was critical care preformed (if so, how long)? @ -No Were there social determinants of health that impacted care today? How? (Homelessness, low income, unemployed, alcoholism, drug addiction, transportation, low edu. Level, literacy, decrease access to med. care, snf, rehab)? @ -No Was there de-escalation of care discussed even if they declined (Discuss DNR or withdrawal of care, Hospice)? DNR status @ -No What co-morbidities impacted this encounter? (DM, HTN, Smoking, COPD, CAD, Cancer, CVA, ARF, Chemo, Hep., AIDS, mental health diagnosis, sleep apnea, morbid obesity)? @ -None Was patient admitted / discharged? Hospital course, mention meds given and route, prescriptions, significant lab abnormalities, going to OR and other pertinent info. @ -57-year-old female presenting with chief complaint of headache. Located primarily in the right temporal region. No vision changes. No dizziness. Admits to some nausea and vomiting. She was admitted here recently for altered mental status and records show that throughout her stay she was complaining of headache as well. She was evaluated by neurology. Lab work shows no leukocytosis or anemia. Glucose 118. Sodium 131, patient is receiving IV fluids. Negative CRP. ESR is sent out. Negative for influenza, RSV, Covid. Negative brain CT. Patient is educated on today's findings. She is resting comfortably showing no acute signs of distress. She is discharged home instructed to follow with her PCP. Follow-up with PCP. Report back to ER with any new or worsening symptoms. Discussed return parameters and answered all questions. Patient conveyed verbal understanding and agreed to the plan. I discussed this case in detail with my attending Dr. Márquez Undiagnosed new problem with uncertain prognosis? @ -No Drug Therapy requiring intensive monitoring for toxicity (Heparin, Nitro, Insulin, Cardizem)? @ -No Were any procedures done? @ -No Diagnosis/symptom? @ -Headache Acute, or Chronic, or Acute on Chronic? @ -Acute Uncomplicated (without systemic symptoms) or Complicated (systemic symptoms)? @ -Uncomplicated Side effects of treatment? @ -No Exacerbation, Progression, or Severe Exacerbation? @ -No Poses a threat to life or bodily function? How? (Chest pain, [place], [place], pneumonia, PE, COPD, DKA, ARF, appy, cholecystitis, CVA, Diverticulitis, Homicidal, Suicidal, threat to staff... and all critical care pts) @ -Low likelihood (Abraham Ordonez) - Lab Data Lab Results 06/27/23 06/27/23 06/27/23 Range/Units 15:48 21:38 21:38 WBC 10.2 (3.8-10.6) k/uL RBC 4.93 (3.80-5.40) m/uL Hgb 16.0 (11.4-16.0) gm/dL Hct 46.8 H (34.0-46.0) % MCV 95.1 (80.0-100.0) fL MCH 32.5 (25.0-35.0) pg MCHC 34.2 (31.0-37.0) g/dL RDW 12.5 (11.5-15.5) % Plt Count 322 (150-450) k/uL MPV 7.5 Neutrophils % 69 % Lymphocytes % 23 % Monocytes % 4 % Eosinophils % 1 % Basophils % 1 % Neutrophils # 7.1 (1.3-7.7) k/uL Lymphocytes # 2.3 (1.0-4.8) k/uL Monocytes # 0.4 (0-1.0) k/uL Eosinophils # 0.1 (0-0.7) k/uL Basophils # 0.1 (0-0.2) k/uL Sodium 131 L (137-145) mmol/L Potassium 4.5 (3.5-5.1) mmol/L Chloride 91 L (98-107) mmol/L Carbon Dioxide 29 (22-30) mmol/L Anion Gap 11 mmol/L BUN 11 (7-17) mg/dL Creatinine 0.46 L (0.52-1.04) mg/dL Est GFR (CKD-EPI)AfAm >90 (>60 ml/min/1.73 sqM) Est GFR (CKD-EPI)NonAf >90 (>60 ml/min/1.73 sqM) Glucose 118 H (74-99) mg/dL Calcium 10.1 (8.4-10.2) mg/dL Total Bilirubin 0.5 (0.2-1.3) mg/dL AST 20 (14-36) U/L ALT 18 (4-34) U/L Alkaline Phosphatase 65 (38-126) U/L C-Reactive Protein <0.5 (<1.0) mg/dL Total Protein 7.3 (6.3-8.2) g/dL Albumin 4.5 (3.5-5.0) g/dL Influenza Type A (PCR) Not Detected (Not Detectd) Influenza Type B (PCR) Not Detected (Not Detectd) RSV (PCR) Not Detected (Not Detectd) SARS-CoV-2 (PCR) Not Detected (Not Detectd) Disposition <Brian Kaur - Last Filed: 06/27/23 15:46> Is patient prescribed a controlled substance at d/c from ED?: No Time of Disposition: 01:27 <Abraham Ordonez - Last Filed: 06/28/23 04:00> Clinical Impression: Headache Disposition: HOME SELF-CARE Condition: Good Instructions (If sedation given, give patient instructions): Acute Headache (ED) Additional Instructions: follow-up with PCP. Report back to ER with any new or worsening symptoms. Referrals: Joanne Aguayo MD [Primary Care Provider] - 1-2 days
[2023-06-27 16:42] VITALS: RESP 18; TEMP 98.9
[2023-06-27] MEDS ORDERED: SODIUM CHLORIDE 0.9% 1,000 ML IV STA (21:23)
[2023-06-27] MEDS ORDERED: diphenhydrAMINE 50 MG/ML 1 ML VIAL IVP STA (21:23)
[2023-06-27] MEDS ORDERED: ACETAMINOPHEN TAB 500 MG TAB PO STA ×2 (21:23→23:34)
[2023-06-27] MEDS ORDERED: DEXAMETHASONE SOD PHOSPHATE 10 MG/ML 1 ML VIAL IVP STA (21:23)
[2023-06-27] MEDS ORDERED: METOCLOPRAMIDE 5 MG/ML 2 ML VIAL IVP STA (21:23)
--- NOTE | 2023-06-27 21:50 | CT ---
EXAMINATION TYPE: CT brain wo con CT DLP: 1157.4 mGycm, Automated exposure control for dose reduction was used. DATE OF EXAM: 06/27/2023 9:41 PM COMPARISON: 06/19/2023. CLINICAL INDICATION:Female, 57 years old with history of Headache, Pt presents with a headache that h as been constant since 06/16. Pt had an 8 day hospital stay and was released on 06/23/23. Pt is having continuing symptoms, worsening headache. H/O angina, COPD, DM, HTN, HEP B, HIV, current everyday smok er. TECHNIQUE: Brain: Axial CT images of the brain were obtained with coronal and sagittal reformats created and rev iewed. Contrast used: None. Oral contrast used: None. FINDINGS: Brain: Extra-axial spaces: No abnormal extra-axial fluid collections. Ventricular system: Within normal limits Cerebral parenchyma: No acute intraparenchymal hemorrhage or mass effect. The schneider-white junction is well differentiated. Cerebellum: Unremarkable. Mass effect: No evidence of midline shift. Intracranial vasculature: Atherosclerotic calcifications of the intracranial vessels. Soft tissues: Normal. Calvarium/osseous structures: No depressed skull fracture. Paranasal sinuses and mastoid air cells: Mild scattered paranasal sinus disease. Visualized orbits: Orbital contents are intact. IMPRESSION: No acute intracranial process.
[2023-06-27 22:04] LABS: Basophils # (A) 0.1 k/uL (0-0.2); Basophils % (A) 1 %; Eosinophils # (A) 0.1 k/uL (0-0.7); Eosinophils % (A) 1 %; HCT 46.8 % (34.0-46.0); Lymphocytes # (A) 2.3 k/uL (1.0-4.8); Lymphocytes % (A) 23 %; MCH 32.5 pg (25.0-35.0); MCHC 34.2 g/dL (31.0-37.0); MCV 95.1 fL (80.0-100.0); Mean Platelet Volume 7.5; Monocytes # (A) 0.4 k/uL (0-1.0); Monocytes % (A) 4 %; Neutrophils # (A) 7.1 k/uL (1.3-7.7); Neutrophils % (A) 69 %; Platelet Count 322 k/uL (150-450); RBC 4.93 m/uL (3.80-5.40); RDW 12.5 % (11.5-15.5); WBC 10.2 k/uL (3.8-10.6)
[2023-06-27 22:35] LABS: ALT 18 U/L (4-34); AST 20 U/L (14-36); African American GFR (CKD) >90 (>60 ml/min/1.73 sqM); Albumin 4.5 g/dL (3.5-5.0); Alkaline Phosphatase 65 U/L (38-126); Anion Gap 11 mmol/L; Blood Urea Nitrogen 11 mg/dL (7-17); Calcium 10.1 mg/dL (8.4-10.2); Carbon Dioxide 29 mmol/L (22-30); Chloride 91 mmol/L (98-107); Glucose 118 mg/dL (74-99); Non-African American GFR(CKD) >90 (>60 ml/min/1.73 sqM); Potassium 4.5 mmol/L (3.5-5.1); Sodium 131 mmol/L (137-145); Total Bilirubin 0.5 mg/dL (0.2-1.3); Total Protein 7.3 g/dL (6.3-8.2)
[2023-06-27 22:48] LABS: C Reactive Protein <0.5 mg/dL (<1.0)
[2023-06-27] MEDS ORDERED: KETOROLAC 15 MG/ML 1 ML VIAL IVP STA (23:34)
[2023-06-28 03:19] VITALS: BP 127/74; PULSE 113
[2023-06-28 04:43] LABS: Erythrocyte Sedimentation Rate 27 mm/Hr (0-30)
== END 2023-06-28 03:07 | disposition home or self-care (01) ==
LOC: EC 15:29
DX: R51.9 Headache, unspecified (principal); E11.9 Type 2 diabetes mellitus without complications; I10 Essential (primary) hypertension; J44.9 Chronic obstructive pulmonary disease, unspecified; F31.9 Bipolar disorder, unspecified; Z21 Asymptomatic human immunodeficiency virus [HIV] infection status; F17.200 Nicotine dependence, unspecified, uncomplicated; F12.90 Cannabis use, unspecified, uncomplicated; Z20.822 Contact with and (suspected) exposure to COVID-19; Z79.84 Long term (current) use of oral hypoglycemic drugs; Z79.899 Other long term (current) drug therapy; Z86.16 Personal history of COVID-19; Z88.8 Allergy status to other drugs, medicaments and biological substances
CPT/HCPCS: 36415; 80053; 85652; 85025; 86140; 87636; 70450; 99285; 96374; 96375 ×3; 96361; J1200; J1100; J2765; J1885

== ENCOUNTER 2024-08-24 03:01 | Inpatient (IN) | payer MEDICARE, OTHER ==
--- NOTE | 2024-08-24 03:10 | ED ---
Nausea/Vomiting/Diarrhea HPI - General Chief complaint: Nausea/Vomiting/Diarrhea Stated complaint: Chest Pain Time Seen by Provider: 08/24/24 03:06 Source: EMS, RN notes reviewed, old records reviewed Mode of arrival: EMS Limitations: no limitations - History of Present Illness Initial comments: This is a 58-year-old female to the ER for evaluation. Patient calls EMS due to nausea vomiting, patient also having back pain lower back pain upper back pain abdominal pain. Persistent nausea vomiting here in the ER. Patient does admit to daily drinking. Her main complaint today is nausea vomiting back pain and bilateral leg pain MD complaint: nausea, vomiting -: hour(s) Associated Abdominal Pain: Yes Location: diffuse Radiation: none Severity: severe Severity scale (1-10): 10 Quality: stabbing, aching Consistency: constant Improves with: none Worsens with: none Associated Symptoms: chest pain, malaise, nausea/vomiting, shortness of breath, weakness - Related Data Home Medications Medication Instructions Recorded Confirmed Acamprosate Calcium [Campral] 333 mg PO TID 04/18/22 06/17/23 Albuterol Sulfate [Albuterol 2 puff INHALATION RT-Q4H PRN 04/18/22 06/17/23 Sulfate Hfa] Canagliflozin [Invokana] 100 mg PO AC-BRKFST 04/18/22 06/17/23 Emtricitabine/Tenofov Alafenam 1 tab PO DAILY 04/18/22 06/17/23 [Descovy 200-25 mg Tablet] Fremanezumab-Vfrm [Ajovy Syringe] 225 mg SQ Q90D 04/18/22 06/17/23 Ipratropium-Albuterol Nebulize 3 ml INHALATION RT-TID PRN 04/18/22 06/17/23 [Duoneb 0.5 mg-3 mg/3 ml Soln] Loratadine [Claritin] 10 mg PO DAILY 04/18/22 06/17/23 Losartan [Cozaar] 25 mg PO DAILY 04/18/22 06/17/23 Nystatin 100,000 Unit/gm Powd 1 applic TOPICAL BID 04/18/22 06/17/23 [Mycostatin Powder] Raltegravir Potassium [Isentress] 800 mg PO HS 04/18/22 06/17/23 Ubrogepant [Ubrelvy] 100 mg PO BID PRN 04/18/22 06/17/23 busPIRone HCL [Buspar] 30 mg PO BID 04/18/22 06/17/23 lamoTRIgine [lamoTRIgine ER] 300 mg PO HS 04/18/22 06/17/23 metFORMIN HCL ER [Glucophage XR] 1,000 mg PO DAILY 04/18/22 06/17/23 sitaGLIPtin [Januvia] 100 mg PO DAILY 04/18/22 06/17/23 Nitroglycerin Sl Tabs [Nitrostat] 0.4 mg SL Q5M PRN 04/24/22 06/17/23 Omeprazole [PriLOSEC] 40 mg PO DAILY 06/17/23 06/17/23 Rosuvastatin [Crestor] 10 mg PO DAILY 06/17/23 06/17/23 Previous Rx's Medication Instructions Recorded Diltiazem Cd [Cardizem CD] 180 mg PO DAILY #30 cap 04/19/22 Ziprasidone [Geodon] 40 mg PO BID 15 Days #30 cap 06/23/23 Allergies Allergy/AdvReac Type Severity Reaction Status Date / Time propranolol [From Inderal LA] Allergy Anaphylaxis Verified 06/27/23 16:30 Review of Systems ROS Statement: Those systems with pertinent positive or pertinent negative responses have been documented in the HPI. ROS Other: All systems not noted in ROS Statement are negative. Past Medical History Past Medical History: Chest Pain / Angina, COPD, Diabetes Mellitus, Hypertension Additional Past Medical History / Comment(s): HEP B, HIV,COVID History of Any Multi-Drug Resistant Organisms: None Reported Past Surgical History: Hernia Repair Past Anesthesia/Blood Transfusion Reactions: No Reported Reaction Past Psychological History: Bipolar Smoking Status: Current every day smoker Past Alcohol Use History: Abuse, Daily Past Drug Use History: Marijuana General Exam - General Exam Comments Initial Comments: Diaphoretic General appearance: alert, in no apparent distress, anxious Head exam: Present: atraumatic, normocephalic, normal inspection Eye exam: Present: normal appearance, PERRL, EOMI. Absent: scleral icterus, conjunctival injection, periorbital swelling ENT exam: Present: normal exam, mucous membranes moist Neck exam: Present: normal inspection. Absent: tenderness, meningismus, lymphadenopathy Respiratory exam: Present: normal lung sounds bilaterally. Absent: respiratory distress, wheezes, rales, rhonchi, stridor Cardiovascular Exam: Present: regular rate, normal rhythm, normal heart sounds. Absent: systolic murmur, diastolic murmur, rubs, gallop, clicks GI/Abdominal exam: Present: soft, normal bowel sounds. Absent: distended, tenderness, guarding, rebound, rigid Extremities exam: Present: normal inspection, full ROM, normal capillary refill. Absent: tenderness, pedal edema, joint swelling, calf tenderness Back exam: Present: normal inspection Neurological exam: Present: alert, oriented X3, CN II-XII intact Psychiatric exam: Present: normal affect, normal mood Skin exam: Present: warm, dry, intact, normal color. Absent: rash Course Vital Signs 08/24/24 03:04 Temperature 97.0 F L Pulse Rate 104 H Respiratory 24 Rate Blood Pressure 165/83 - Reevaluation(s) Reevaluation #1: 08/24/24 04:08 Medical records reviewed Reevaluation #4: Was pt. sent in by a medical professional or institution (Dr. PA, GAMER, urgent care, hospital, or fdc...) When possible be specific @ -no Did you speak to anyone other than the patient for history (EMS, parent, family, police, friend...)? What history was obtained from this source @ -no Did you review nursing and triage notes (agree or disagree)? Why? @ -agree Are old charts reviewed (outside hosp., previous admission, EMS record, old EKG, old radiological studies, urgent care reports/EKG's, fdc records)? Report findings @ -yes Differential Diagnosis (chest pain, altered mental status, abdominal pain women, abdominal pain men, vaginal bleeding, weakness, fever, dyspnea, syncope, headache, dizziness, GI bleed, back pain, seizure, CVA, palpatations, mental health, musculoskeletal)? @ -prior EKG interpreted by me (3pts min.). @ -yes X-rays interpreted by me (1pt min.). @ -yes negative for acute disease CT interpreted by me (1pt min.). @ -no U/S interpreted by me (1pt. min.). @ -no What testing was considered but not performed or refused? (CT, X-rays, U/S, labs)? Why? @ -none What meds were considered but not given or refused? Why? @ -none Did you discuss the management of the patient with other professionals (professionals i.e. , PA, GAMER, lab, RT, psych nurse, social media campaign manager, vp global, teacher, aoc director combat operations officer, manager case management)? Give summary @ -no Was smoking cessation discussed for >3mins.? @ -no Was critical care preformed (if so, how long)? @ -no Were there social determinants of health that impacted care today? How? (Homelessness, low income, unemployed, alcoholism, drug addiction, transportation, low edu. Level, literacy, decrease access to med. care, alf, rehab)? @ -none Was there de-escalation of care discussed even if they declined (Discuss DNR or withdrawal of care, Hospice)? DNR status @ -no What co-morbidities impacted this encounter? (DM, HTN, Smoking, COPD, CAD, Cancer, CVA, ARF, Chemo, Hep., AIDS, mental health diagnosis, sleep apnea, morbid obesity)? @ -none Was patient admitted / discharged? Hospital course, mention meds given and route, prescriptions, significant lab abnormalities, going to OR and other pertinent info. @ - Undiagnosed new problem with uncertain prognosis? @ -no Drug Therapy requiring intensive monitoring for toxicity (Heparin, Nitro, Insulin, Cardizem)? @ -no Were any procedures done? @ -no Diagnosis/symptom? @ - Acute, or Chronic, or Acute on Chronic? @ -Acute Uncomplicated (without systemic symptoms) or Complicated (systemic symptoms)? @ -Complicated Side effects of treatment? @ -no Exacerbation, Progression, or Severe Exacerbation? @ -exacerbation Poses a threat to life or bodily function? How? (Chest pain, [place], [place], pneumonia, PE, COPD, DKA, ARF, appy, cholecystitis, CVA, Diverticulitis, Homicidal, Suicidal, threat to staff... and all critical care pts) @ -yes Reevaluation #5: 08/24/24 04:08 Differential Back Pain: Strain, zoster, cauda equina syndrome, epidural abscess, vertebral osteomyelitis, discitis, fracture, subluxation, disc herniation, DJD, spinal stenosis, dissection, AAA, pancreatitis, peptic ulcer disease, pyelonephritis, kidney stone, this is not meant to be an all-inclusive list. Medical Decision Making - Lab Data Result diagrams: 08/24/24 03:08 08/24/24 03:08 Lab Results 08/24/24 08/24/24 08/24/24 Range/Units 03:08 03:08 03:08 WBC 13.4 H (3.8-10.6) k/uL RBC 5.58 H (3.80-5.40) m/uL Hgb 16.5 H (11.4-16.0) gm/dL Hct 49.8 H (34.0-46.0) % MCV 89.1 (80.0-100.0) fL MCH 29.5 (25.0-35.0) pg MCHC 33.1 (31.0-37.0) g/dL RDW 13.8 (11.5-15.5) % Plt Count 307 (150-450) k/uL MPV 7.5 Neutrophils % 81 % Lymphocytes % 11 % Monocytes % 5 % Eosinophils % 0 % Basophils % 0 % Neutrophils # 10.9 H (1.3-7.7) k/uL Lymphocytes # 1.5 (1.0-4.8) k/uL Monocytes # 0.6 (0-1.0) k/uL Eosinophils # 0.1 (0-0.7) k/uL Basophils # 0.0 (0-0.2) k/uL PT 10.8 (10.0-12.5) sec INR 1.0 (<1.2) APTT 25.1 (22.0-30.0) sec D-Dimer 0.53 (<0.60) mg/L FEU Sodium 121 L (137-145) mmol/L Potassium 4.7 (3.5-5.1) mmol/L Chloride 84 L (98-107) mmol/L Carbon Dioxide 24 (22-30) mmol/L Anion Gap 13 mmol/L BUN 10 (7-17) mg/dL Creatinine 0.46 L (0.52-1.04) mg/dL Est GFR (CKD-EPI)AfAm >90 (>60 ml/min/1.73 sqM) Est GFR (CKD-EPI)NonAf >90 (>60 ml/min/1.73 sqM) Glucose 163 H (74-99) mg/dL Calcium 10.4 H (8.4-10.2) mg/dL Magnesium 1.4 L (1.6-2.3) mg/dL Total Bilirubin 0.6 (0.2-1.3) mg/dL AST 27 (14-36) U/L ALT 19 (4-34) U/L Alkaline Phosphatase 89 (38-126) U/L Troponin I (0.000-0.034) ng/mL NT-Pro-B Natriuret Pep 810 pg/mL Total Protein 8.2 (6.3-8.2) g/dL Albumin 5.1 H (3.5-5.0) g/dL Lipase 70 (23-300) U/L Serum Alcohol <10 mg/dL Influenza Type A (PCR) (Not Detectd) Influenza Type B (PCR) (Not Detectd) RSV (PCR) (Not Detectd) SARS-CoV-2 (PCR) (Not Detectd) 08/24/24 08/24/24 Range/Units 03:08 03:29 WBC (3.8-10.6) k/uL RBC (3.80-5.40) m/uL Hgb (11.4-16.0) gm/dL Hct (34.0-46.0) % MCV (80.0-100.0) fL MCH (25.0-35.0) pg MCHC (31.0-37.0) g/dL RDW (11.5-15.5) % Plt Count (150-450) k/uL MPV Neutrophils % % Lymphocytes % % Monocytes % % Eosinophils % % Basophils % % Neutrophils # (1.3-7.7) k/uL Lymphocytes # (1.0-4.8) k/uL Monocytes # (0-1.0) k/uL Eosinophils # (0-0.7) k/uL Basophils # (0-0.2) k/uL PT (10.0-12.5) sec INR (<1.2) APTT (22.0-30.0) sec D-Dimer (<0.60) mg/L FEU Sodium (137-145) mmol/L Potassium (3.5-5.1) mmol/L Chloride (98-107) mmol/L Carbon Dioxide (22-30) mmol/L Anion Gap mmol/L BUN (7-17) mg/dL Creatinine (0.52-1.04) mg/dL Est GFR (CKD-EPI)AfAm (>60 ml/min/1.73 sqM) Est GFR (CKD-EPI)NonAf (>60 ml/min/1.73 sqM) Glucose (74-99) mg/dL Calcium (8.4-10.2) mg/dL Magnesium (1.6-2.3) mg/dL Total Bilirubin (0.2-1.3) mg/dL AST (14-36) U/L ALT (4-34) U/L Alkaline Phosphatase (38-126) U/L Troponin I <0.012 (0.000-0.034) ng/mL NT-Pro-B Natriuret Pep pg/mL Total Protein (6.3-8.2) g/dL Albumin (3.5-5.0) g/dL Lipase (23-300) U/L Serum Alcohol mg/dL Influenza Type A (PCR) Not Detected (Not Detectd) Influenza Type B (PCR) Not Detected (Not Detectd) RSV (PCR) Not Detected (Not Detectd) SARS-CoV-2 (PCR) Not Detected (Not Detectd) - EKG Data -: EKG Interpreted by Me (EKG is tachycardia 105 CO 170 QRS 87 QTc 393) Rate: normal (No ST elevation) Disposition Clinical Impression: Gastroenteritis, Dehydration, Alcohol abuse, Hyponatremia, Nausea & vomiting Disposition: ADMITTED IP TO THIS HOSP Condition: Fair Is patient prescribed a controlled substance at d/c from ED?: No Referrals: Joanne Aguayo MD [Primary Care Provider] - 1-2 days Time of Disposition: 05:00
[2024-08-24] MEDS: MORPHINE SULFATE 4 MG/ML SYRINGE IV STA (03:40)
[2024-08-24] MEDS: SODIUM CHLORIDE 0.9% 1,000 ML IV STA (03:40)
[2024-08-24 03:43] LABS: Basophils % (A) 0 %; Eosinophils # (A) 0.1 k/uL (0-0.7); Eosinophils % (A) 0 %; HCT 49.8 % (34.0-46.0); HGB 16.5 gm/dL (11.4-16.0); Lymphocytes # (A) 1.5 k/uL (1.0-4.8); Lymphocytes % (A) 11 %; MCH 29.5 pg (25.0-35.0); MCHC 33.1 g/dL (31.0-37.0); MCV 89.1 fL (80.0-100.0); Mean Platelet Volume 7.5; Monocytes # (A) 0.6 k/uL (0-1.0); Monocytes % (A) 5 %; Neutrophils # (A) 10.9 k/uL (1.3-7.7); Neutrophils % (A) 81 %; Platelet Count 307 k/uL (150-450); RBC 5.58 m/uL (3.80-5.40); RDW 13.8 % (11.5-15.5); WBC 13.4 k/uL (3.8-10.6)
[2024-08-24 03:57] LABS: Partial Thromboplastin Time 25.1 sec (22.0-30.0); Prothrombin Time 10.8 sec (10.0-12.5)
[2024-08-24 04:02] LABS: ALT 19 U/L (4-34); AST 27 U/L (14-36); African American GFR (CKD) >90 (>60 ml/min/1.73 sqM); Albumin 5.1 g/dL (3.5-5.0); Alcohol <10 mg/dL; Alkaline Phosphatase 89 U/L (38-126); Anion Gap 13 mmol/L; Blood Urea Nitrogen 10 mg/dL (7-17); Calcium 10.4 mg/dL (8.4-10.2); Carbon Dioxide 24 mmol/L (22-30); Chloride 84 mmol/L (98-107); Glucose 163 mg/dL (74-99); Lipase 70 U/L (23-300); Magnesium 1.4 mg/dL (1.6-2.3); Non-African American GFR(CKD) >90 (>60 ml/min/1.73 sqM); Potassium 4.7 mmol/L (3.5-5.1); Sodium 121 mmol/L (137-145); Total Bilirubin 0.6 mg/dL (0.2-1.3); Total Protein 8.2 g/dL (6.3-8.2)
[2024-08-24 04:10] LABS: NT-Pro-B-Type Natriuretic Pept 810 pg/mL
[2024-08-24 04:12] LABS: Influenza A Not Detected (Not Detectd); Influenza B Not Detected (Not Detectd); RSV Not Detected (Not Detectd)
[2024-08-24] MEDS: ONDANSETRON 4 MG/2 ML VIAL IVP STA (04:19)
[2024-08-24] MEDS: MAGNESIUM OXIDE 400 MG TAB PO STA ×2 (04:39)
[2024-08-24] MEDS: MAGNESIUM SULFATE-D5W PMX 1 GM in DEXTROSE/WATER 1 100ML.BAG IVPB ONE ×2 (04:39→13:29)
[2024-08-24] MEDS ORDERED: ONDANSETRON 4 MG/2 ML VIAL IVP PRN (05:10)
[2024-08-24] MEDS ORDERED: MORPHINE SULFATE 4 MG/ML SYRINGE IV PRN (05:10)
[2024-08-24] MEDS ORDERED: NALOXONE 0.4 MG/ML 1 ML VIAL IV PRN (05:10)
[2024-08-24] MEDS: SODIUM CHLORIDE 0.9% 1,000 ML IV SCH (05:25)
--- NOTE | 2024-08-24 05:28 | CT ---
EXAM: CT Abdomen and Pelvis With Intravenous Contrast CLINICAL HISTORY: ITS.REASON CT Reason: pain TECHNIQUE: Axial computed tomography images of the abdomen and pelvis with intravenous contrast. This CT exam was performed using one or more of the following dose reduction techniques: automated exposure control, adjustment of the mA and/or kV according to patient size, and/or use of iterative reconstruction technique. COMPARISON: No relevant prior studies available. FINDINGS: Limitations: Limited evaluation in the absence of contrast. Lung bases: Unremarkable. No mass. No consolidation. ABDOMEN: Liver: Unremarkable. No mass. Gallbladder and bile ducts: Unremarkable. No calcified stones. No ductal dilation. Pancreas: Unremarkable. No mass. No ductal dilation. Spleen: Unremarkable. No splenomegaly. Adrenals: Unremarkable. No mass. Kidneys and ureters: No evidence of radiopaque renal calculi or signs of collecting system dilatation. Stomach and bowel: Suspected ingested medication noted within the gastric antrum, cecum, and transverse colon. No obstruction. No mucosal thickening. PELVIS: Appendix: No findings to suggest acute appendicitis. Bladder: Unremarkable. No mass. Reproductive: Unremarkable as visualized. ABDOMEN and PELVIS: Intraperitoneal space: Mild pelvic free fluid. This may be physiologic or reactive in nature. No free air. Bones/joints: Degenerative changes in the spine. No acute fracture. No dislocation. Soft tissues: Unremarkable. Vasculature: Atherosclerotic disease. No abdominal aortic aneurysm. Lymph nodes: Unremarkable. No enlarged lymph nodes. IMPRESSION: 1. Limited evaluation in the absence of contrast. 2. No evidence of radiopaque renal calculi or signs of collecting system dilatation. 3. Mild pelvic free fluid. This may be physiologic or reactive in nature. 4. No other acute findings. 5. Incidental findings as described.
--- NOTE | 2024-08-24 05:41 | CT ---
EXAM: CT Angiography Chest With Intravenous Contrast CLINICAL HISTORY: Upon arrival to ED pt. Notes new bilateral leg pain. TECHNIQUE: Axial computed tomographic angiography images of the chest with intravenous contrast. This CT exam was performed using one or more of the following dose reduction techniques: automated exposure control, adjustment of the mA and/or kV according to patient size, and/or use of iterative reconstruction technique. MIP reconstructed images were created and reviewed. Coronal and sagittal reformatted images were created and reviewed. 739 images COMPARISON: Chest radiograph from 06/17/23 FINDINGS: Pulmonary arteries: No pulmonary embolism. No thoracic aortic aneurysm or dissection. 3.7 cm dilatation of main pulmonary artery suggests pulmonary care hypertension. Aorta: Small amount of atherosclerotic calcifications. Lungs: Unremarkable. No mass. No consolidation. Pleural space: Unremarkable. No significant effusion. No pneumothorax. Heart: Unremarkable. No cardiomegaly. No significant pericardial effusion. No evidence of RV dysfunction. Bones/joints: moderate degenerative changes. Soft tissues: Unremarkable. Lymph nodes: Unremarkable. No enlarged lymph nodes. Adrenals: 2 cm left adrenal nodule. IMPRESSION: No pulmonary embolism.
[2024-08-24] MEDS: PANTOPRAZOLE 40 MG/10 ML VIAL IV SCH ×2 (08:41→23:30)
[2024-08-24] MEDS ORDERED: PATIENT'S OWN (Ubrogepant [Ubrelvy] 100 MG Tablet) PO PRN (11:45)
[2024-08-24] MEDS ORDERED: ALBUTEROL NEBULIZED 2.5 MG/3 ML INHALATION PRN (11:45)
[2024-08-24] MEDS ORDERED: NITROGLYCERIN SL TABS 0.4 MG TAB SUBLINGUAL PRN (11:45)
--- NOTE | 2024-08-24 11:59 | P.HPIM ---
History of Present Illness .Patient is a 58-year-old female came with complaints of nausea vomiting going on for few days patient denied abdominal pain but abdominal CT was obtained in the ER which did not show any significant abnormality patient is on 2 L of oxygen denied any shortness of breath uses 2-4 oxygen at home patient had a CT angio of the chest which did not show any pulmonary embolism or pneumonia patient still nauseous is getting Zofran at this time patient is found to be hyponatremic. Patient is doing IV fluids at this time patient had any fever chills dysuria no evidence of infection no fever does have some leukocytosis. REVIEW OF SYSTEMS: All other systems are negative except those mentioned in the HPI PHYSICAL EXAMINATION: GENERAL: The patient is alert and oriented x3, not in any acute distress. Well developed, well nourished. HEENT: Pupils are round and equally reacting to light. EOMI. No scleral icterus. No conjunctival pallor. Normocephalic, atraumatic. No pharyngeal erythema. No thyromegaly. CARDIOVASCULAR: S1 and S2 present. No murmurs, rubs, or gallops. PULMONARY: Chest is clear to auscultation, no wheezing or crackles. ABDOMEN: Soft, nontender, nondistended, normoactive bowel sounds. No palpable organomegaly. MUSCULOSKELETAL: No joint swelling or deformity. EXTREMITIES: No cyanosis, clubbing, or pedal edema. NEUROLOGICAL: Gross neurological examination did not reveal any focal deficits. SKIN: No rashes. Assessment and plan -Nausea vomiting: Probably due to peptic ulcer disease or gastritis, will increase Protonix to twice a day and add Maalox continue with IV fluids -Hyponatremia hypovolemic hyponatremia nausea vomiting will obtain urine osmolality serum osmolality urine uric acid, urine random creatinine and a TSH level. -History of HIV on antiretroviral therapy as per the patient patient last CD4 count was good which was long time ago and patient supposed to get CD4 count d one again on her next visit to infectious disease specialist -Continue nicotine use: Counseling was provided -Hypertension -Migraine -Leukocytosis reactive in nature -For above-mentioned chronic medical problems patient was resumed on appropriate home medications DVT prophylaxis: Early ambulation Past Medical History Past Medical History: Chest Pain / Angina, COPD, Diabetes Mellitus, Hypertension Additional Past Medical History / Comment(s): HEP B, HIV,COVID History of Any Multi-Drug Resistant Organisms: None Reported Past Surgical History: Hernia Repair Past Anesthesia/Blood Transfusion Reactions: No Reported Reaction Past Psychological History: Bipolar Smoking Status: Current every day smoker Past Alcohol Use History: Abuse, Daily Past Drug Use History: Marijuana Medications and Allergies Home Medications Medication Instructions Recorded Confirmed Type Acamprosate Calcium [Campral] 333 mg PO TID 04/18/22 08/24/24 History Albuterol Sulfate [Albuterol 2 puff INHALATION RT-Q4H PRN 04/18/22 08/24/24 History Sulfate Hfa] Canagliflozin [Invokana] 100 mg PO AC-BRKFST 04/18/22 08/24/24 History Emtricitabine/Tenofov Alafenam 1 tab PO DAILY 04/18/22 08/24/24 History [Descovy 200-25 mg Tablet] Losartan [Cozaar] 25 mg PO DAILY 04/18/22 08/24/24 History Nystatin 100,000 Unit/gm Powd 1 applic TOPICAL BID 04/18/22 08/24/24 History [Mycostatin Powder] Ubrogepant [Ubrelvy] 100 mg PO BID PRN 04/18/22 08/24/24 History lamoTRIgine [lamoTRIgine ER] 300 mg PO HS 04/18/22 08/24/24 History metFORMIN HCL ER [Glucophage XR] 1,000 mg PO DAILY 04/18/22 08/24/24 History sitaGLIPtin [Januvia] 100 mg PO DAILY 04/18/22 08/24/24 History Diltiazem Cd [Cardizem CD] 180 mg PO DAILY #30 cap 04/19/22 08/24/24 Rx Nitroglycerin Sl Tabs [Nitrostat] 0.4 mg SL Q5M PRN 04/24/22 08/24/24 History Omeprazole [PriLOSEC] 40 mg PO DAILY 06/17/23 08/24/24 History Ibuprofen [Motrin] 600 mg PO TID PRN 08/24/24 08/24/24 History Raltegravir Potassium [Isentress] 400 mg PO BID 08/24/24 08/24/24 History Ziprasidone [Geodon] 80 mg PO BID 08/24/24 08/24/24 History clomiPRAMINE HCL [Anafranil] 75 mg PO DAILY 08/24/24 08/24/24 History clomiPRAMINE HCL [Anafranil] 150 mg PO HS 08/24/24 08/24/24 History Allergies Allergy/AdvReac Type Severity Reaction Status Date / Time propranolol [From Inderal LA] Allergy Anaphylaxis Verified 06/27/23 16:30 Physical Exam Vitals: Vital Signs Temp Pulse Resp BP Pulse Ox 08/24/24 09:54 100 20 142/76 94 L 08/24/24 08:03 98.5 F 99 20 152/83 95 08/24/24 06:18 97.4 F L 99 20 136/76 92 L 08/24/24 03:04 97.0 F L 104 H 24 165/83 Intake and Output 08/23/24 08/24/24 08/24/24 22:59 06:59 14:59 Other: Weight 70.76 kg Results CBC & Chem 7: 08/24/24 03:08 08/24/24 03:08 Labs: Abnormal Lab Results - Last 24 Hours (Table) 08/24/24 08/24/24 Range/Units 03:08 03:08 WBC 13.4 H (3.8-10.6) k/uL RBC 5.58 H (3.80-5.40) m/uL Hgb 16.5 H (11.4-16.0) gm/dL Hct 49.8 H (34.0-46.0) % Neutrophils # 10.9 H (1.3-7.7) k/uL Sodium 121 L (137-145) mmol/L Chloride 84 L (98-107) mmol/L Creatinine 0.46 L (0.52-1.04) mg/dL Glucose 163 H (74-99) mg/dL Calcium 10.4 H (8.4-10.2) mg/dL Magnesium 1.4 L (1.6-2.3) mg/dL Albumin 5.1 H (3.5-5.0) g/dL
[2024-08-24] MEDS: RALTEGRAVIR POTASSIUM 400 MG PO SCH (12:55)
[2024-08-24 13:04] LABS: Basophils % (A) 0 %; Eosinophils # (A) 0.1 k/uL (0-0.7); Eosinophils % (A) 1 %; HCT 48.6 % (34.0-46.0); HGB 15.7 gm/dL (11.4-16.0); Lymphocytes # (A) 1.8 k/uL (1.0-4.8); Lymphocytes % (A) 19 %; MCH 29.3 pg (25.0-35.0); MCHC 32.3 g/dL (31.0-37.0); MCV 90.6 fL (80.0-100.0); Mean Platelet Volume 7.3; Monocytes # (A) 0.6 k/uL (0-1.0); Monocytes % (A) 6 %; Neutrophils # (A) 6.5 k/uL (1.3-7.7); Neutrophils % (A) 70 %; Platelet Count 311 k/uL (150-450); RBC 5.37 m/uL (3.80-5.40); RDW 13.8 % (11.5-15.5); WBC 9.2 k/uL (3.8-10.6)
[2024-08-24] MEDS: MAG HYDROX/AL HYDROX/SIMETH 30 ML CUP PO SCH (13:28)
[2024-08-24] MEDS: ZIPRASIDONE 80 MG CAP PO SCH (13:28)
[2024-08-24 15:07] LABS: Glucose,Whole Blood 149 mg/dL (70-110)
[2024-08-24] MEDS: ACAMPROSATE CALCIUM 333 MG TABLET.DR PO SCH (15:52)
[2024-08-24 20:53] LABS: Glucose,Whole Blood 109 mg/dL (70-110)
[2024-08-24] MEDS: NYSTATIN 100,000 UNIT/GM POWD 15 GM TOPICAL SCH (23:28)
[2024-08-24] MEDS: lamoTRIgine 100 MG TAB PO SCH (23:29)
[2024-08-25 06:14] LABS: Glucose,Whole Blood 127 mg/dL (70-110)
[2024-08-25] MEDS: DAPAGLIFLOZIN PROPANEDIOL 5 MG TABLET PO SCH (06:38)
[2024-08-25] MEDS: DILTIAZEM CD 180 MG CAP.ER.24H PO SCH (08:14)
[2024-08-25] MEDS: LOSARTAN 25 MG TAB PO SCH (08:22)
[2024-08-25 09:02] VITALS: BP 166/96; PULSE 105; RESP 20; TEMP 98.5
[2024-08-25 09:34] LABS: Basophils # (A) 0.05 X 10*3/uL (0.00-0.10); Basophils % (A) 0.6 %; Eosinophils # (A) 0.11 X 10*3/uL (0.04-0.35); Eosinophils % (A) 1.4 %; HCT 46.7 % (37.2-46.3); HGB 15.4 g/dL (12.0-15.0); Lymphocytes # (A) 2.16 X 10*3/uL (0.90-5.00); Lymphocytes % (A) 27.9 %; MCH 29.3 pg (27.0-32.0); Mean Platelet Volume 9.6 FL (9.5-12.2); Monocytes % (A) 7.7 %; NRBC Per 100 WBC 0 X 10*3/uL (0.00-0.01); Neutrophils # (A) 4.77 X 10*3/uL (1.80-7.70); Neutrophils % (A) 61.6 %; Platelet Count 291 X 10*3/uL (140-440); RBC 5.25 X 10*6/uL (4.10-5.20); RDW 13.4 % (11.5-14.5); WBC 7.75 X 10*3/uL (4.50-10.00)
[2024-08-25] MEDS: TENOFOVIR ALAFENAMIDE PO SCH (10:30)
[2024-08-25] MEDS: [UNRECOGNIZED DRUG - OTHER] PO SCH (10:30)
[2024-08-25] MEDS: EMTRICITABINE PO SCH (10:30)
[2024-08-25 10:49] LABS: ALT 22 U/L (8-44); AST 25 U/L (13-35); Albumin 3.9 g/dL (3.8-4.9); Alkaline Phosphatase 73 U/L (41-126); Blood Urea Nitrogen 8.3 mg/dL (9.0-27.0); Calcium 9.4 mg/dL (8.7-10.3); Carbon Dioxide 25.4 mmol/L (21.6-31.8); Chloride 100 mmol/L (96-109); Globulin 2.3 g/dL (1.6-3.3); Glucose 111 mg/dL (70-110); Magnesium 1.9 mg/dL (1.5-2.4); Phosphorus 2.9 mg/dL (2.4-5.1); Potassium 4.4 mmol/L (3.5-5.5); Sodium 136 mmol/L (135-145); Total Bilirubin 0.2 mg/dL (0.3-1.2); Total Protein 6.2 g/dL (6.2-8.2)
[2024-08-25 11:25] LABS: Glucose,Whole Blood 130 mg/dL (70-110)
== END 2024-08-25 16:10 | disposition home or self-care (01) | DRG 384 ==
LOC: EC 03:01 → 5NMEDONC 05:11 → 4SSUR 17:10
PROVIDERS: ADMIT Hospitalist; ATTEND Hospitalist
DX: K27.9 Peptic ulcer, site unspecified, unspecified as acute or chronic, without hemorrhage or perforation (principal); E87.1 Hypo-osmolality and hyponatremia; E11.9 Type 2 diabetes mellitus without complications; E86.0 Dehydration; E86.1 Hypovolemia; D72.829 Elevated white blood cell count, unspecified; Z21 Asymptomatic human immunodeficiency virus [HIV] infection status; J44.9 Chronic obstructive pulmonary disease, unspecified; F10.10 Alcohol abuse, uncomplicated; I10 Essential (primary) hypertension; Z11.52 Encounter for screening for COVID-19; K29.70 Gastritis, unspecified, without bleeding; Z71.6 Tobacco abuse counseling; G43.909 Migraine, unspecified, not intractable, without status migrainosus; F17.210 Nicotine dependence, cigarettes, uncomplicated; Z86.16 Personal history of COVID-19; Z79.84 Long term (current) use of oral hypoglycemic drugs; Z79.899 Other long term (current) drug therapy; Z88.8 Allergy status to other drugs, medicaments and biological substances
CPT/HCPCS: 36415; 71275; 74177; 80053; 80320; 82570; 83690; 83735; 83880; 83930; 83935; 84100; 84300; 84443; 84484; 84560; 85025; 85379; 85610; 85730; 87636; 93005; 96361; 96365; 96366; 96375; 96376; 99285

== ENCOUNTER → 2024-09-03 | Outpatient (CLI) | payer MEDICARE, OTHER ==
[2024-09-03 18:07] LABS: Basophils # (A) 0.07 X 10*3/uL (0.00-0.10); Basophils % (A) 0.7 %; Eosinophils # (A) 0.13 X 10*3/uL (0.04-0.35); Eosinophils % (A) 1.2 %; HCT 47.6 % (37.2-46.3); HGB 15.4 g/dL (12.0-15.0); Lymphocytes # (A) 2.15 X 10*3/uL (0.90-5.00); Lymphocytes % (A) 20.2 %; MCH 29.2 pg (27.0-32.0); MCHC 32.4 g/dL (32.0-37.0); MCV 90.2 FL (80.0-97.0); Mean Platelet Volume 10.2 FL (9.5-12.2); Monocytes # (A) 0.54 X 10*3/uL (0.20-1.00); Monocytes % (A) 5.1 %; NRBC Per 100 WBC 0 X 10*3/uL (0.00-0.01); Neutrophils # (A) 7.68 X 10*3/uL (1.80-7.70); Neutrophils % (A) 72.2 %; Platelet Count 303 X 10*3/uL (140-440); RBC 5.28 X 10*6/uL (4.10-5.20); RDW 13.9 % (11.5-14.5); WBC 10.63 X 10*3/uL (4.50-10.00)
[2024-09-03 18:39] LABS: ALT 24 U/L (8-44); AST 24 U/L (13-35); Albumin 4.6 g/dL (3.8-4.9); Albumin/Globulin Ratio 1.64 Ratio (1.60-3.17); Alkaline Phosphatase 84 U/L (41-126); BUN/Creat Ratio 16.86 Ratio (12.00-20.00); Blood Urea Nitrogen 11.8 mg/dL (9.0-27.0); Calcium 10.2 mg/dL (8.7-10.3); Carbon Dioxide 25.8 mmol/L (21.6-31.8); Chloride 96 mmol/L (96-109); Globulin 2.8 g/dL (1.6-3.3); Glucose 129 mg/dL (70-110); Sodium 137 mmol/L (135-145); Total Bilirubin <0.2 mg/dL (0.3-1.2); Total Protein 7.4 g/dL (6.2-8.2)
== END | disposition home or self-care (01) ==
LOC: LABWHC1 13:56
PROVIDERS: ATTEND Internal Medicine Infectious Disease
DX: B20 Human immunodeficiency virus [HIV] disease (principal)
CPT/HCPCS: 36415; 80053; 85025

== ENCOUNTER 2024-10-25 17:52 | Emergency (ER) | payer MEDICARE, OTHER ==
[2024-10-25 18:00] VITALS: TEMP 98.4
--- NOTE | 2024-10-25 18:08 | ED ---
General Adult HPI - General Chief complaint: Altered Mental Status Stated complaint: Hypertension Time Seen by Provider: 10/25/24 17:55 Source: patient, RN notes reviewed, old records reviewed Mode of arrival: EMS Limitations: no limitations - History of Present Illness Initial comments: This is a 59-year-old female who presents to the emergency department because she was confused at home. Patient states she was trying to figure out how to work her brand-new phone and she states she just could not think clearly so her boyfriend called the ambulance. Patient states she continues to feel that way. Patient denies any slurred speech patient denies any headache patient denies numbness or weakness. Patient has any facial droop. Patient Nuys any recent fever chills or cough. Patient states she does smoke pot quite often and cigarettes. Patient states she is a drinker as well. Patient states that she had 2 beers yesterday but none today. Patient denies any other illegal drug use. Patient denies any abdominal pain patient has nausea vomiting diarrhea. - Related Data Home Medications Medication Instructions Recorded Confirmed Acamprosate Calcium [Campral] 333 mg PO TID 04/18/22 09/15/24 Albuterol Sulfate [Albuterol 2 puff INHALATION RT-Q4H PRN 04/18/22 09/15/24 Sulfate Hfa] Canagliflozin [Invokana] 100 mg PO AC-BRKFST 04/18/22 09/15/24 Emtricitabine/Tenofov Alafenam 1 tab PO HS 04/18/22 09/15/24 [Descovy 200-25 mg Tablet] Losartan [Cozaar] 25 mg PO DAILY 04/18/22 09/15/24 Nystatin 100,000 Unit/gm Powd 1 applic TOPICAL BID PRN 04/18/22 09/15/24 [Mycostatin Powder] Ubrogepant [Ubrelvy] 100 mg PO BID PRN 04/18/22 09/15/24 lamoTRIgine [lamoTRIgine ER] 300 mg PO HS 04/18/22 09/15/24 metFORMIN HCL ER [Glucophage XR] 1,000 mg PO DAILY 04/18/22 09/15/24 sitaGLIPtin [Januvia] 100 mg PO DAILY 04/18/22 09/15/24 Nitroglycerin Sl Tabs [Nitrostat] 0.4 mg SL Q5M PRN 04/24/22 09/15/24 Raltegravir Potassium [Isentress] 400 mg PO HS 08/24/24 09/15/24 Ziprasidone [Geodon] 80 mg PO BID 08/24/24 09/15/24 clomiPRAMINE HCL [Anafranil] 75 mg PO DAILY 08/24/24 09/15/24 clomiPRAMINE HCL [Anafranil] 150 mg PO HS 08/24/24 09/15/24 busPIRone HCL [Buspar] 30 mg PO BID 09/15/24 09/15/24 Previous Rx's Medication Instructions Recorded Diltiazem Cd [Cardizem CD] 180 mg PO DAILY #30 cap 04/19/22 Famotidine [Pepcid] 20 mg PO BID #60 tablet 08/25/24 Allergies Allergy/AdvReac Type Severity Reaction Status Date / Time propranolol [From Inderal LA] Allergy Anaphylaxis Verified 09/15/24 08:25 Review of Systems ROS Statement: Those systems with pertinent positive or pertinent negative responses have been documented in the HPI. ROS Other: All systems not noted in ROS Statement are negative. Past Medical History Past Medical History: Chest Pain / Angina, COPD, Diabetes Mellitus, Hypertension Additional Past Medical History / Comment(s): HEP B, HIV,COVID History of Any Multi-Drug Resistant Organisms: None Reported Past Surgical History: Hernia Repair Past Anesthesia/Blood Transfusion Reactions: No Reported Reaction Past Psychological History: Bipolar Smoking Status: Current every day smoker Past Alcohol Use History: Abuse, Daily Past Drug Use History: Marijuana General Exam - General Exam Comments Initial Comments: GENERAL: Patient is well-developed and well-nourished. Patient is nontoxic and well- hydrated and is in no acute distress. ENT: Neck is soft and supple. No significant lymphadenopathy is noted. Oropharynx is clear. Moist mucous membranes. Neck has full range of motion without eliciting any pain. EYES: The sclera were anicteric and conjunctiva were pink and moist. Extraocular movements were intact and pupils were equal round and reactive to light. Eyelids were unremarkable. PULMONARY: Unlabored respirations. Good breath sounds bilaterally. No audible rales rhonchi or wheezing was noted. CARDIOVASCULAR: There is a regular rate and rhythm without any murmurs gallops or rubs. ABDOMEN: Soft and nontender with normal bowel sounds. SKIN: Skin is clear with no lesions or rashes and otherwise unremarkable. NEUROLOGIC: Patient is alert and oriented x3. Cranial nerves II through XII are grossly intact. Motor and sensory are also intact. Normal speech, volume and content. Symmetrical smile. Patient's NIH is 0 MUSCULOSKELETAL: Normal extremities with adequate strength and full range of motion. No lower extremity swelling or edema. No calf tenderness. LYMPHATICS: No significant lymphadenopathy is noted PSYCHIATRIC: Normal psychiatric evaluation. Limitations: no limitations Course Vital Signs 10/25/24 10/25/24 10/25/24 17:57 18:19 19:17 Temperature 98.4 F Pulse Rate 104 H 101 H 106 H Respiratory 20 18 17 Rate Blood Pressure 201/101 158/84 166/94 O2 Sat by Pulse 96 96 95 Oximetry Medical Decision Making - Medical Decision Making EKG is interpreted by myself. EKG shows a sinus rhythm at 98 bpm [place] was 211 QRS is 105 QT interval is 372 QTc is 427. Patient's EKG shows no ST segment elevation or depression. Was pt. sent in by a medical professional or institution (, PA, COAT TAILOR, urgent care, hospital, or usp...) When possible be specific @ -No Did you speak to anyone other than the patient for history (EMS, parent, family, police, friend...)? What history was obtained from this source @ -No Did you review nursing and triage notes (agree or disagree)? Why? @ -I reviewed and agree with nursing and triage notes Were old charts reviewed (outside hosp., previous admission, EMS record, old EKG, old radiological studies, urgent care reports/EKG's, usp records)? Report findings @ -No old charts were reviewed Differential Diagnosis? @ -Differential altered mental status EKG interpreted by me (3pts min.). @ -As above X-rays interpreted by me (1pt min.). @ -Chest x-ray shows no acute abdomen CT interpreted by me (1pt min.). @ -None done patient did not want U/S interpreted by me (1pt. min.). @ -None done What testing was considered but not performed or refused? (CT, X-rays, U/S, labs)? Why? @ -None What meds were considered but not given or refused? Why? @ -None Did you discuss the management of the patient with other professionals (professionals i.e. , PA, COAT TAILOR, lab, RT, psych nurse, social media manager, supervisor trust accounts, teacher, coastal/harbor defense officer, patient case manager)? Give summary @ -No Was smoking cessation discussed for >3mins.? @ -No Was critical care preformed (if so, how long)? @ -No Were there social determinants of health that impacted care today? How? (Homelessness, low income, unemployed, alcoholism, drug addiction, transportation, low edu. Level, literacy, decrease access to med. care, half-way, rehab)? @ -No Was there de-escalation of care discussed even if they declined (Discuss DNR or withdrawal of care, Hospice)? DNR status @ -No What co-morbidities impacted this encounter? (DM, HTN, Smoking, COPD, CAD, Cancer, CVA, ARF, Chemo, Hep., AIDS, mental health diagnosis, sleep apnea, morbid obesity)? @ -None Was patient admitted / discharged? Hospital course, mention meds given and route, prescriptions, significant lab abnormalities, going to OR and other pertinent info. @ -I went back into the room and the patient was using her phone without any problem. I told the patient I do not know why she had the episode where she was unable to use her phone and functioning appropriately. Patient stated that she did not want to stay I told her that I recommended and she again stated that she would come back if symptoms came back or worsen. Patient states she feels much better now and wants to be discharged home Undiagnosed new problem with uncertain prognosis? @ -No Drug Therapy requiring intensive monitoring for toxicity (Heparin, Nitro, Insulin, Cardizem)? @ -No Were any procedures done? @ -No Diagnosis/symptom? @ -Transient altered mental status Acute, or Chronic, or Acute on Chronic? @ -Acute Uncomplicated (without systemic symptoms) or Complicated (systemic symptoms)? @ -Complicated Side effects of treatment? @ -No Exacerbation, Progression, or Severe Exacerbation? @ -No Poses a threat to life or bodily function? How? (Chest pain, [place], [place], pneumonia, PE, COPD, DKA, ARF, appy, cholecystitis, CVA, Diverticulitis, Homicidal, Suicidal, threat to staff... and all critical care pts) @ -No - Lab Data Result diagrams: 10/25/24 18:01 10/25/24 18:01 Lab Results 10/25/24 10/25/24 10/25/24 Range/Units 18:01 18:01 18:01 WBC 11.85 H (4.50-10.00) 10*3/uL RBC 4.98 (4.10-5.20) 10*6/uL Hgb 15.5 H (12.0-15.0) g/dL Hct 43.3 (37.2-46.3) % MCV 86.9 (80.0-97.0) fL MCH 31.1 (27.0-32.0) pg MCHC 35.8 (32.0-37.0) g/dL Plt Count 250 (140-440) 10*3/uL MPV 9.5 (9.5-12.2) fL Immature Gran % (Auto) 0.8 % Neutrophils % 76.0 % Lymphocytes % 16.5 % Monocytes % 5.1 % Eosinophils % 1.1 % Basophils % 0.5 % Immature Gran # 0.10 H (0.00-0.04) 10*3/uL Neutrophils # 8.99 H (1.80-7.70) 10*3/uL Lymphocytes # 1.96 (0.90-5.00) 10*3/uL Monocytes # 0.61 (0.20-1.00) 10*3/uL Eosinophils # 0.13 (0.04-0.35) 10*3/uL Basophils # 0.06 (0.00-0.10) 10*3/uL PT 10.3 (10.0-12.5) sec INR 0.9 (<1.2) APTT 25.2 (22.0-30.0) sec Sodium 130 L (137-145) mmol/L Potassium 4.5 (3.5-5.1) mmol/L Chloride 94 L (98-107) mmol/L Carbon Dioxide 25 (22-30) mmol/L Anion Gap 11 mmol/L BUN 8 (7-17) mg/dL Creatinine 0.47 L (0.52-1.04) mg/dL Est GFR (CKD-EPI)AfAm >90 (>60 ml/min/1.73 sqM) Est GFR (CKD-EPI)NonAf >90 (>60 ml/min/1.73 sqM) Glucose 108 H (74-99) mg/dL Calcium 9.6 (8.4-10.2) mg/dL Total Bilirubin 0.4 (0.2-1.3) mg/dL AST 23 (14-36) U/L ALT 20 (4-34) U/L Alkaline Phosphatase 77 (38-126) U/L Ammonia (<30) umol/L Troponin I (0.000-0.034) ng/mL Total Protein 7.1 (6.3-8.2) g/dL Albumin 4.3 (3.5-5.0) g/dL Urine Color Urine Appearance (Clear) Urine pH (5.0-8.0) Ur Specific [place] (1.001-1.035) Urine Protein (Negative) Urine Glucose (UA) (Negative) Urine Ketones (Negative) Urine Blood (Negative) Urine Nitrite (Negative) Urine Bilirubin (Negative) Urine Urobilinogen (<2.0) mg/dL Ur Leukocyte Esterase (Negative) Urine Opiates Screen (NotDetected) Ur Oxycodone Screen (NotDetected) Urine Methadone Screen (NotDetected) Ur Barbiturates Screen (NotDetected) U Tricyclic Antidepress (NotDetected) Ur Phencyclidine Scrn (NotDetected) Ur Amphetamines Screen (NotDetected) U Methamphetamines Scrn (NotDetected) U Benzodiazepines Scrn (NotDetected) Urine Cocaine Screen (NotDetected) U Marijuana (THC) Screen (NotDetected) Serum Alcohol <10 mg/dL 10/25/24 10/25/24 10/25/24 Range/Units 18:01 18:01 18:30 WBC (4.50-10.00) 10*3/uL RBC (4.10-5.20) 10*6/uL Hgb (12.0-15.0) g/dL Hct (37.2-46.3) % MCV (80.0-97.0) fL MCH (27.0-32.0) pg MCHC (32.0-37.0) g/dL Plt Count (140-440) 10*3/uL MPV (9.5-12.2) fL Immature Gran % (Auto) % Neutrophils % % Lymphocytes % % Monocytes % % Eosinophils % % Basophils % % Immature Gran # (0.00-0.04) 10*3/uL Neutrophils # (1.80-7.70) 10*3/uL Lymphocytes # (0.90-5.00) 10*3/uL Monocytes # (0.20-1.00) 10*3/uL Eosinophils # (0.04-0.35) 10*3/uL Basophils # (0.00-0.10) 10*3/uL PT (10.0-12.5) sec INR (<1.2) APTT (22.0-30.0) sec Sodium (137-145) mmol/L Potassium (3.5-5.1) mmol/L Chloride (98-107) mmol/L Carbon Dioxide (22-30) mmol/L Anion Gap mmol/L BUN (7-17) mg/dL Creatinine (0.52-1.04) mg/dL Est GFR (CKD-EPI)AfAm (>60 ml/min/1.73 sqM) Est GFR (CKD-EPI)NonAf (>60 ml/min/1.73 sqM) Glucose (74-99) mg/dL Calcium (8.4-10.2) mg/dL Total Bilirubin (0.2-1.3) mg/dL AST (14-36) U/L ALT (4-34) U/L Alkaline Phosphatase (38-126) U/L Ammonia <9 (<30) umol/L Troponin I <0.012 (0.000-0.034) ng/mL Total Protein (6.3-8.2) g/dL Albumin (3.5-5.0) g/dL Urine Color Colorless Urine Appearance Clear (Clear) Urine pH 7.0 (5.0-8.0) Ur Specific [place] 1.006 (1.001-1.035) Urine Protein Negative (Negative) Urine Glucose (UA) 2+ H (Negative) Urine Ketones Negative (Negative) Urine Blood Negative (Negative) Urine Nitrite Negative (Negative) Urine Bilirubin Negative (Negative) Urine Urobilinogen <2.0 (<2.0) mg/dL Ur Leukocyte Esterase Negative (Negative) Urine Opiates Screen Not Detected (NotDetected) Ur Oxycodone Screen Not Detected (NotDetected) Urine Methadone Screen Not Detected (NotDetected) Ur Barbiturates Screen Not Detected (NotDetected) U Tricyclic Antidepress Detected H (NotDetected) Ur Phencyclidine Scrn Not Detected (NotDetected) Ur Amphetamines Screen Not Detected (NotDetected) U Methamphetamines Scrn Not Detected (NotDetected) U Benzodiazepines Scrn Not Detected (NotDetected) Urine Cocaine Screen Not Detected (NotDetected) U Marijuana (THC) Screen Not Detected (NotDetected) Serum Alcohol mg/dL Disposition Clinical Impression: Altered mental status Disposition: HOME SELF-CARE Instructions (If sedation given, give patient instructions): Altered Mental Status (ED) Is patient prescribed a controlled substance at d/c from ED?: No Referrals: Joanne Aguayo MD [Primary Care Provider] - 1-2 days Time of Disposition: 19:52
[2024-10-25] MEDS: SODIUM CHLORIDE 0.9% 500 ML 500 ML IV ONE (18:15)
[2024-10-25] MEDS: LORazepam 2 MG/ML INJ IV STA (18:17)
[2024-10-25 18:23] LABS: Basophils # (A) 0.06 10*3/uL (0.00-0.10); Basophils % (A) 0.5 %; Eosinophils # (A) 0.13 10*3/uL (0.04-0.35); Eosinophils % (A) 1.1 %; HCT 43.3 % (37.2-46.3); HGB 15.5 g/dL (12.0-15.0); Lymphocytes # (A) 1.96 10*3/uL (0.90-5.00); Lymphocytes % (A) 16.5 %; MCH 31.1 pg (27.0-32.0); MCHC 35.8 g/dL (32.0-37.0); MCV 86.9 fL (80.0-97.0); Mean Platelet Volume 9.5 fL (9.5-12.2); Monocytes # (A) 0.61 10*3/uL (0.20-1.00); Monocytes % (A) 5.1 %; Neutrophils # (A) 8.99 10*3/uL (1.80-7.70); Platelet Count 250 10*3/uL (140-440); RBC 4.98 10*6/uL (4.10-5.20); RDW 14.2 % (11.5-14.5); WBC 11.85 10*3/uL (4.50-10.00)
[2024-10-25 18:32] LABS: INR 0.9 (<1.2); Partial Thromboplastin Time 25.2 sec (22.0-30.0); Prothrombin Time 10.3 sec (10.0-12.5)
[2024-10-25 18:34] LABS: ALT 20 U/L (4-34); AST 23 U/L (14-36); African American GFR (CKD) >90 (>60 ml/min/1.73 sqM); Albumin 4.3 g/dL (3.5-5.0); Alcohol <10 mg/dL; Alkaline Phosphatase 77 U/L (38-126); Anion Gap 11 mmol/L; Blood Urea Nitrogen 8 mg/dL (7-17); Calcium 9.6 mg/dL (8.4-10.2); Carbon Dioxide 25 mmol/L (22-30); Chloride 94 mmol/L (98-107); Glucose 108 mg/dL (74-99); Non-African American GFR(CKD) >90 (>60 ml/min/1.73 sqM); Potassium 4.5 mmol/L (3.5-5.1); Sodium 130 mmol/L (137-145); Total Bilirubin 0.4 mg/dL (0.2-1.3); Total Protein 7.1 g/dL (6.3-8.2)
[2024-10-25 18:41] LABS: Appearance,Urine Clear (Clear); Bilirubin,Urine Negative (Negative); Blood,Urine Negative (Negative); Color,Urine Colorless; Glucose,Urine (UA) 2+ (Negative); Ketones,Urine Negative (Negative); Leukocyte Esterase,Urine Negative (Negative); Nitrite,Urine Negative (Negative); Protein,Urine Negative (Negative); Specific Gravity,Urine 1.006 (1.001-1.035); Urobilinogen,Urine <2.0 mg/dL (<2.0)
[2024-10-25 18:49] LABS: Amphetamine Screen,Urine Not Detected (NotDetected); Barbiturate Screen,Urine Not Detected (NotDetected); Benzodiazepines Screen,Urine Not Detected (NotDetected); Cocaine Screen,Urine Not Detected (NotDetected); Methadone Screen, Urine Not Detected (NotDetected); Opiate Screen,Urine Not Detected (NotDetected); Oxycodone Screen, Urine Not Detected (NotDetected); Phencyclidine Screen,Urine Not Detected (NotDetected); Tricyclic Antidepressant,Urine Detected (NotDetected); Urn Cannabinoid Scrn Not Detected (NotDetected)
--- NOTE | 2024-10-25 19:05 | XR ---
EXAMINATION TYPE: XR chest 2V DATE OF EXAM: 10/25/2024 6:51 PM COMPARISON: 09/15/2024 CLINICAL INDICATION: Female, 59 years old with history of altered mental status, TECHNIQUE: XR chest 2V view(s) obtained. FINDINGS: The heart size is normal. The pulmonary vasculature is normal. The lungs are clear. IMPRESSION: 1. No acute pulmonary process. [facility], Workstation: [facility], 10/25/2024 7:03 PM
[2024-10-25 19:18] VITALS: BP 166/94; RESP 17
[2024-10-25 20:10] VITALS: PULSE 98
== END 2024-10-25 20:10 | disposition home or self-care (01) ==
LOC: EC 17:52
DX: R41.82 Altered mental status, unspecified (principal); F17.210 Nicotine dependence, cigarettes, uncomplicated; Z88.4 Allergy status to anesthetic agent
CPT/HCPCS: 36415; 93005; 80053; 82140; 84484; 85025; 85610; 85730; 81003; 80306; 80320; 71046; 99285; 96374; 96361 ×2; J2060

== ENCOUNTER 2024-12-21 14:42 | Emergency (ER) | payer MEDICARE, OTHER ==
[2024-12-21 16:29] LABS: VBG HCO3 30.0 mmol/L (24-28); VBG PCO2 51.0 mmHg (37-51); VBG PH 7.37 (7.31-7.41)
[2024-12-21] MEDS: SODIUM CHLORIDE 0.9% 1,000 ML IV ONE (16:29)
[2024-12-21 16:30] LABS: Basophils # (A) 0.04 10*3/uL (0.00-0.10); Basophils % (A) 0.4 %; Eosinophils # (A) 0.08 10*3/uL (0.04-0.35); Eosinophils % (A) 0.8 %; HCT 42.9 % (37.2-46.3); HGB 14.7 g/dL (12.0-15.0); Lymphocytes # (A) 1.77 10*3/uL (0.90-5.00); Lymphocytes % (A) 16.9 %; MCH 30.5 pg (27.0-32.0); MCHC 34.3 g/dL (32.0-37.0); MCV 89.0 fL (80.0-97.0); Monocytes # (A) 0.49 10*3/uL (0.20-1.00); Monocytes % (A) 4.7 %; Neutrophils # (A) 8.01 10*3/uL (1.80-7.70); Neutrophils % (A) 76.6 %; Platelet Count 260 10*3/uL (140-440); RBC 4.82 10*6/uL (4.10-5.20); RDW 13.5 % (11.5-14.5); WBC 10.45 10*3/uL (4.50-10.00)
[2024-12-21] MEDS: ACETAMINOPHEN TAB 500 MG TAB PO STA (16:31)
[2024-12-21 16:40] LABS: Lactic Acid, Venous 1.3 mmol/L (0.7-2.0)
--- NOTE | 2024-12-21 16:40 | ED ---
General Adult HPI - General Chief complaint: Altered Mental Status Stated complaint: Confusion Time Seen by Provider: 12/21/24 15:45 Source: patient, EMS, RN notes reviewed, old records reviewed Mode of arrival: EMS Limitations: no limitations - History of Present Illness Initial comments: Patient is a 59year-old female with past medical history remarkable for HIV, COPD, diabetes, hypertension. States that she is compliant with medications. Apparently for the last month or so she has had intermittent episodes of confusion. Patient is aware of multiple episodes of the last few days but her sister states that has been ongoing for longer than that, approximately month. She denies any chest pain or shortness of breath. Denies any abdominal pain or nausea or vomiting. Endorses mild headache. Unknown palliative or provocative factors. Patient is ANO x 4 right now without confusion. Presents for further evaluation at this time.Denies being on blood thinners. Denies any head injuries or falls. Denies any obvious infectious process.Patient is chronically on home oxygen as needed.Patient is having a mild productive cough in addition to the wheezing that she has. - Related Data Home Medications Medication Instructions Recorded Confirmed Acamprosate Calcium [Campral] 333 mg PO TID 04/18/22 09/15/24 Albuterol Sulfate [Albuterol 2 puff INHALATION RT-Q4H PRN 04/18/22 09/15/24 Sulfate Hfa] Canagliflozin [Invokana] 100 mg PO AC-BRKFST 04/18/22 09/15/24 Emtricitabine/Tenofov Alafenam 1 tab PO HS 04/18/22 09/15/24 [Descovy 200-25 mg Tablet] Losartan [Cozaar] 25 mg PO DAILY 04/18/22 09/15/24 Nystatin 100,000 Unit/gm Powd 1 applic TOPICAL BID PRN 04/18/22 09/15/24 [Mycostatin Powder] Ubrogepant [Ubrelvy] 100 mg PO BID PRN 04/18/22 09/15/24 lamoTRIgine [lamoTRIgine ER] 300 mg PO HS 04/18/22 09/15/24 metFORMIN HCL ER [Glucophage XR] 1,000 mg PO DAILY 04/18/22 09/15/24 sitaGLIPtin [Januvia] 100 mg PO DAILY 04/18/22 09/15/24 Nitroglycerin Sl Tabs [Nitrostat] 0.4 mg SL Q5M PRN 04/24/22 09/15/24 Raltegravir Potassium [Isentress] 400 mg PO HS 08/24/24 09/15/24 Ziprasidone [Geodon] 80 mg PO BID 08/24/24 09/15/24 clomiPRAMINE HCL [Anafranil] 75 mg PO DAILY 08/24/24 09/15/24 clomiPRAMINE HCL [Anafranil] 150 mg PO HS 08/24/24 09/15/24 busPIRone HCL [Buspar] 30 mg PO BID 09/15/24 09/15/24 Previous Rx's Medication Instructions Recorded Diltiazem Cd [Cardizem CD] 180 mg PO DAILY #30 cap 04/19/22 Famotidine [Pepcid] 20 mg PO BID #60 tablet 08/25/24 Azithromycin [Zithromax] 250 mg PO DAILY 4 Days #4 tab 12/21/24 predniSONE [Deltasone] 40 mg PO DAILY 5 Days #10 tab 12/21/24 Allergies Allergy/AdvReac Type Severity Reaction Status Date / Time propranolol [From Inderal LA] Allergy Anaphylaxis Verified 12/21/24 14:49 Review of Systems ROS Statement: Those systems with pertinent positive or pertinent negative responses have been documented in the HPI. Review of Systems: CONST: Denies fever EYES: Denies blurry vision ENT: Denies nasal congestion C/V: Denies Chest pain RESP: Denies shortness of breath GI: Denies abdominal pain : Denies dysuria SKIN: Denies rash. MSK: Denies joint pain. NEURO: Has mild headache ROS Other: All systems not noted in ROS Statement are negative. Past Medical History Past Medical History: Chest Pain / Angina, COPD, Diabetes Mellitus, Hypertension Additional Past Medical History / Comment(s): HEP B, HIV,COVID History of Any Multi-Drug Resistant Organisms: None Reported Past Surgical History: Hernia Repair Past Anesthesia/Blood Transfusion Reactions: No Reported Reaction Past Psychological History: Bipolar Smoking Status: Current every day smoker Past Alcohol Use History: Abuse, Daily Past Drug Use History: Marijuana General Exam - General Exam Comments Initial Comments: General: Appears in no acute distress. HEAD: Normal with no signs of head trauma. EYES: PERRLA, EOMI, conjunctiva normal, no discharge. Pupils are 3 mm and equal bilaterally. ENT: Hearing grossly intact, normal oropharynx. RESPIRATORY: Mild end expiratory wheezing without any obvious rhonchi. No respiratory distress. No significant hypoxia. C/V: Regular rate and rhythm. S1 and S2 auscultated, no edema, peripheral pulses 2+ and intact throughout ABD: Abd is soft, nontender, nondistended EXT: Normal range of motion, no obvious deformity SKIN: No rashes or lesions observed on exposed skin. NEURO: Alert and oriented x 4. Cranial nerves II-XII intact. No focal sensory or strength deficits. NIH of 0. GCS 15. Limitations: no limitations Course Vital Signs 12/21/24 12/21/24 12/21/24 14:46 16:23 17:14 Temperature 97.9 F Pulse Rate 101 H 100 90 Respiratory 20 20 Rate Blood Pressure 181/79 164/78 O2 Sat by Pulse 94 L 88 L Oximetry 12/21/24 12/21/24 17:19 17:23 Temperature Pulse Rate 94 Respiratory Rate Blood Pressure O2 Sat by Pulse 98 Oximetry Medical Decision Making - Medical Decision Making Was pt. sent in by a medical professional or institution (, PA, PET CARETAKER, urgent care, hospital, or senior living...) When possible be specific @ -No Did you speak to anyone other than the patient for history (EMS, parent, family, police, friend...)? What history was obtained from this source @ -No Did you review nursing and triage notes (agree or disagree)? Why? @ -I reviewed and agree with nursing and triage notes Were old charts reviewed (outside hosp., previous admission, EMS record, old EKG, old radiological studies, urgent care reports/EKG's, senior living records)? Report findings @ -Compared today's EKG with EKG from October 2024 with no significant acute change. Differential Diagnosis (chest pain, altered mental status, abdominal pain women, abdominal pain men, vaginal bleeding, weakness, fever, dyspnea, syncope, headache, dizziness, GI bleed, back pain, seizure, CVA, palpatations, mental health, musculoskeletal)? @ -Differential Altered Mental Status: Hypoglycemia, DKA, hypercapnia, ETOH, overdose, CO poisoning, trauma, myxedema coma, HTN encephalopathy, infection, encephalitis, psychosis, intercranial hemorrhage, hepatic encephalopathy, meningitis, CVA, this is not meant to be an all-inclusive list EKG interpreted by me (3pts min.). @ -As above X-rays interpreted by me (1pt min.). @ -Chest x-ray shows no obvious acute cardiopulmonary process. CT interpreted by me (1pt min.). @ -CT brain shows no obvious acute intracranial process. Chronic degenerative changes present. U/S interpreted by me (1pt. min.). @ -None done What testing was considered but not performed or refused? (CT, X-rays, U/S, labs)? Why? @ -None What meds were considered but not given or refused? Why? @ -None Did you discuss the management of the patient with other professionals (professionals i.e. , PA, PET CARETAKER, lab, RT, psych nurse, social sciences instructor, package dyer, teacher, intelligence support officer, briefcase sewer)? Give summary @ -No Was smoking cessation discussed for >3mins.? @ -No Was critical care preformed (if so, how long)? @ -No Were there social determinants of health that impacted care today? How? (Homelessness, low income, unemployed, alcoholism, drug addiction, transportation, low edu. Level, literacy, decrease access to med. care, [facility], rehab)? @ -No Was there de-escalation of care discussed even if they declined (Discuss DNR or withdrawal of care, Hospice)? DNR status @ -No What co-morbidities impacted this encounter? (DM, HTN, Smoking, COPD, CAD, Cancer, CVA, ARF, Chemo, Hep., AIDS, mental health diagnosis, sleep apnea, morbid obesity)? @ -COPD Was patient admitted / discharged? Hospital course, mention meds given and route, prescriptions, significant lab abnormalities, going to OR and other pertinent info. @ -Based on patient's presentation and physical exam, presents emergency depart ment for intermittent altered mental status and confusion. Currently is not confused. Vital signs are within acceptable limits except patient who typically only uses oxygen as needed is requiring oxygen at this time. Is 88% on room air. Improved on minimal 2 L nasal cannula oxygen. Patient does use oxygen at home as needed. She has no significant acute complaints. Is ANO x 4. We will obtain general altered mental status workup. She was in agreement this plan. Will begin 1 L fluid bolus as well as IV steroids and a breathing treatment and Tylenol due to a mild headache. She was in agreement this plan. EKG shows no signs of acute ischemia. Imaging negative for any obvious acute pr ocess. Patient's laboratory studies returned remarkable for mild leukocytosis of 10.4. Remainder the workup unremarkable. On reevaluation, patient's mental status is unchanged, and is at baseline. She is ANO x 4 with no confusion. States last episode of acute confusion occurred earlier today when she was doing something can remember what she was doing but it was transient. I discussed with the patient as I have no clear etiology and she is currently alert and oriented that she can probably follow-up with her PCP and she was in agreement this plan. She will be treated for COPD exacerbation and tracheobronchitis with prednisone, azithromycin. Her breathing is improved following breathing treatment here. She already has oxygen at home to be used as needed and I recommended she use it for at least the next day and she was in agreement the plan. Strict return precautions discussed. She does not require inhaler refills. I will provide the patient with a prescription for prednisone, azithromycin. I instructed the patient to follow up with their PCP in the next 1-3 days.. I explained that the patient should return to the emergency department if they experience any worsening symptoms. Strict return precautions were discussed with the patient. The patient expressed understanding of these instructions. I answered all questions that the patient had. The patient was discharged home in good condition with their prescriptions and follow up information. Undiagnosed new problem with uncertain prognosis? @ -No Drug Therapy requiring intensive monitoring for toxicity (Heparin, Nitro, Insulin, Cardizem)? @ -No Were any procedures done? @ -No Diagnosis/symptom? @ -COPD, tracheobronchitis, transient confusion Acute, or Chronic, or Acute on Chronic? @ -Acute on chronic Uncomplicated (without systemic symptoms) or Complicated (systemic symptoms)? @ -Uncomplicated Side effects of treatment? @ -[none] Exacerbation, Progression, or Severe Exacerbation] @ -[no] Poses a threat to life or bodily function? @ -Unlikely at this time - Lab Data Result diagrams: 12/21/24 16:15 12/21/24 16:15 Lab Results 12/21/24 12/21/24 12/21/24 Range/Units 16:15 16:15 16:15 WBC 10.45 H (4.50-10.00) 10*3/uL RBC 4.82 (4.10-5.20) 10*6/uL Hgb 14.7 (12.0-15.0) g/dL Hct 42.9 (37.2-46.3) % MCV 89.0 (80.0-97.0) fL MCH 30.5 (27.0-32.0) pg MCHC 34.3 (32.0-37.0) g/dL Plt Count 260 (140-440) 10*3/uL MPV 9.2 L (9.5-12.2) fL Immature Gran % (Auto) 0.6 % Neutrophils % 76.6 % Lymphocytes % 16.9 % Monocytes % 4.7 % Eosinophils % 0.8 % Basophils % 0.4 % Immature Gran # 0.06 H (0.00-0.04) 10*3/uL Neutrophils # 8.01 H (1.80-7.70) 10*3/uL Lymphocytes # 1.77 (0.90-5.00) 10*3/uL Monocytes # 0.49 (0.20-1.00) 10*3/uL Eosinophils # 0.08 (0.04-0.35) 10*3/uL Basophils # 0.04 (0.00-0.10) 10*3/uL PT 10.3 (10.0-12.5) sec INR 0.9 (<1.2) APTT 23.9 (22.0-30.0) sec VBG pH (7.31-7.41) VBG pCO2 (37-51) mmHg VBG HCO3 (24-28) mmol/L Sodium 139 (137-145) mmol/L Potassium 4.4 (3.5-5.1) mmol/L Chloride 102 (98-107) mmol/L Carbon Dioxide 28 (22-30) mmol/L Anion Gap 9 mmol/L BUN 6 L (7-17) mg/dL Creatinine 0.55 (0.52-1.04) mg/dL Est GFR (CKD-EPI)AfAm >90 (>60 ml/min/1.73 sqM) Est GFR (CKD-EPI)NonAf >90 (>60 ml/min/1.73 sqM) Glucose 125 H (74-99) mg/dL Plasma Lactic Acid Jonathan (0.7-2.0) mmol/L Calcium 9.8 (8.4-10.2) mg/dL Total Bilirubin 0.4 (0.2-1.3) mg/dL AST 22 (14-36) U/L ALT 15 (4-34) U/L Alkaline Phosphatase 86 (38-126) U/L Ammonia (<30) umol/L Total Protein 7.0 (6.3-8.2) g/dL Albumin 4.5 (3.5-5.0) g/dL Urine Color Urine Appearance (Clear) Urine pH (5.0-8.0) Ur Specific [place] (1.001-1.035) Urine Protein (Negative) Urine Glucose (UA) (Negative) Urine Ketones (Negative) Urine Blood (Negative) Urine Nitrite (Negative) Urine Bilirubin (Negative) Urine Urobilinogen (<2.0) mg/dL Ur Leukocyte Esterase (Negative) Salicylates <1.0 mg/dL Urine Opiates Screen (NotDetected) Ur Oxycodone Screen (NotDetected) Urine Methadone Screen (NotDetected) Acetaminophen <10.0 ug/mL Ur Barbiturates Screen (NotDetected) U Tricyclic Antidepress (NotDetected) Ur Phencyclidine Scrn (NotDetected) Ur Amphetamines Screen (NotDetected) U Methamphetamines Scrn (NotDetected) U Benzodiazepines Scrn (NotDetected) Urine Cocaine Screen (NotDetected) U Marijuana (THC) Screen (NotDetected) Serum Alcohol <10 mg/dL Influenza Type A (PCR) (Not Detectd) Influenza Type B (PCR) (Not Detectd) RSV (PCR) (Not Detectd) SARS-CoV-2 (PCR) (Not Detectd) 12/21/24 12/21/24 12/21/24 Range/Units 16:15 16:15 16:15 WBC (4.50-10.00) 10*3/uL RBC (4.10-5.20) 10*6/uL Hgb (12.0-15.0) g/dL Hct (37.2-46.3) % MCV (80.0-97.0) fL MCH (27.0-32.0) pg MCHC (32.0-37.0) g/dL Plt Count (140-440) 10*3/uL MPV (9.5-12.2) fL Immature Gran % (Auto) % Neutrophils % % Lymphocytes % % Monocytes % % Eosinophils % % Basophils % % Immature Gran # (0.00-0.04) 10*3/uL Neutrophils # (1.80-7.70) 10*3/uL Lymphocytes # (0.90-5.00) 10*3/uL Monocytes # (0.20-1.00) 10*3/uL Eosinophils # (0.04-0.35) 10*3/uL Basophils # (0.00-0.10) 10*3/uL PT (10.0-12.5) sec INR (<1.2) APTT (22.0-30.0) sec VBG pH 7.37 (7.31-7.41) VBG pCO2 51 (37-51) mmHg VBG HCO3 30 H (24-28) mmol/L Sodium (137-145) mmol/L Potassium (3.5-5.1) mmol/L Chloride (98-107) mmol/L Carbon Dioxide (22-30) mmol/L Anion Gap mmol/L BUN (7-17) mg/dL Creatinine (0.52-1.04) mg/dL Est GFR (CKD-EPI)AfAm (>60 ml/min/1.73 sqM) Est GFR (CKD-EPI)NonAf (>60 ml/min/1.73 sqM) Glucose (74-99) mg/dL Plasma Lactic Acid Jonathan 1.3 (0.7-2.0) mmol/L Calcium (8.4-10.2) mg/dL Total Bilirubin (0.2-1.3) mg/dL AST (14-36) U/L ALT (4-34) U/L Alkaline Phosphatase (38-126) U/L Ammonia 11 (<30) umol/L Total Protein (6.3-8.2) g/dL Albumin (3.5-5.0) g/dL Urine Color Urine Appearance (Clear) Urine pH (5.0-8.0) Ur Specific [place] (1.001-1.035) Urine Protein (Negative) Urine Glucose (UA) (Negative) Urine Ketones (Negative) Urine Blood (Negative) Urine Nitrite (Negative) Urine Bilirubin (Negative) Urine Urobilinogen (<2.0) mg/dL Ur Leukocyte Esterase (Negative) Salicylates mg/dL Urine Opiates Screen (NotDetected) Ur Oxycodone Screen (NotDetected) Urine Methadone Screen (NotDetected) Acetaminophen ug/mL Ur Barbiturates Screen (NotDetected) U Tricyclic Antidepress (NotDetected) Ur Phencyclidine Scrn (NotDetected) Ur Amphetamines Screen (NotDetected) U Methamphetamines Scrn (NotDetected) U Benzodiazepines Scrn (NotDetected) Urine Cocaine Screen (NotDetected) U Marijuana (THC) Screen (NotDetected) Serum Alcohol mg/dL Influenza Type A (PCR) Not Detected (Not Detectd) Influenza Type B (PCR) Not Detected (Not Detectd) RSV (PCR) Not Detected (Not Detectd) SARS-CoV-2 (PCR) Not Detected (Not Detectd) 12/21/24 12/21/24 Range/Units 16:51 16:51 WBC (4.50-10.00) 10*3/uL RBC (4.10-5.20) 10*6/uL Hgb (12.0-15.0) g/dL Hct (37.2-46.3) % MCV (80.0-97.0) fL MCH (27.0-32.0) pg MCHC (32.0-37.0) g/dL Plt Count (140-440) 10*3/uL MPV (9.5-12.2) fL Immature Gran % (Auto) % Neutrophils % % Lymphocytes % % Monocytes % % Eosinophils % % Basophils % % Immature Gran # (0.00-0.04) 10*3/uL Neutrophils # (1.80-7.70) 10*3/uL Lymphocytes # (0.90-5.00) 10*3/uL Monocytes # (0.20-1.00) 10*3/uL Eosinophils # (0.04-0.35) 10*3/uL Basophils # (0.00-0.10) 10*3/uL PT (10.0-12.5) sec INR (<1.2) APTT (22.0-30.0) sec VBG pH (7.31-7.41) VBG pCO2 (37-51) mmHg VBG HCO3 (24-28) mmol/L Sodium (137-145) mmol/L Potassium (3.5-5.1) mmol/L Chloride (98-107) mmol/L Carbon Dioxide (22-30) mmol/L Anion Gap mmol/L BUN (7-17) mg/dL Creatinine (0.52-1.04) mg/dL Est GFR (CKD-EPI)AfAm (>60 ml/min/1.73 sqM) Est GFR (CKD-EPI)NonAf (>60 ml/min/1.73 sqM) Glucose (74-99) mg/dL Plasma Lactic Acid Jonathan (0.7-2.0) mmol/L Calcium (8.4-10.2) mg/dL Total Bilirubin (0.2-1.3) mg/dL AST (14-36) U/L ALT (4-34) U/L Alkaline Phosphatase (38-126) U/L Ammonia (<30) umol/L Total Protein (6.3-8.2) g/dL Albumin (3.5-5.0) g/dL Urine Color Colorless Urine Appearance Clear (Clear) Urine pH 7.0 (5.0-8.0) Ur Specific [place] 1.003 (1.001-1.035) Urine Protein Negative (Negative) Urine Glucose (UA) 3+ H (Negative) Urine Ketones Negative (Negative) Urine Blood Negative (Negative) Urine Nitrite Negative (Negative) Urine Bilirubin Negative (Negative) Urine Urobilinogen <2.0 (<2.0) mg/dL Ur Leukocyte Esterase Negative (Negative) Salicylates mg/dL Urine Opiates Screen Not Detected (NotDetected) Ur Oxycodone Screen Not Detected (NotDetected) Urine Methadone Screen Not Detected (NotDetected) Acetaminophen ug/mL Ur Barbiturates Screen Not Detected (NotDetected) U Tricyclic Antidepress Not Detected (NotDetected) Ur Phencyclidine Scrn Not Detected (NotDetected) Ur Amphetamines Screen Not Detected (NotDetected) U Methamphetamines Scrn Not Detected (NotDetected) U Benzodiazepines Scrn Not Detected (NotDetected) Urine Cocaine Screen Not Detected (NotDetected) U Marijuana (THC) Screen Not Detected (NotDetected) Serum Alcohol mg/dL Influenza Type A (PCR) (Not Detectd) Influenza Type B (PCR) (Not Detectd) RSV (PCR) (Not Detectd) SARS-CoV-2 (PCR) (Not Detectd) - EKG Data -: EKG Interpreted by Me EKG Comments: 12-lead Electrocardiogram Interpretation Note EKG was reviewed and interpreted by myself. 12-lead ECG performed at 1456 is interpreted by me as revealing normal sinus rhythm at a rate of 90 beats per minute. [place] is indeterminate. Incomplete right bundle branch block present. MS interval is 220 ms, QRS durations 101 ms, QTc is 415 ms.. There were no ST or T wave abnormalities to suggest myocardial ischemia or injury. R wave progression across the precordium was satisfactory. By my interpretation this EKG is non-diagnostic for acute ischemia. 12-lead Electrocardiogram Interpretation Note EKG was reviewed and interpreted by myself. 12-lead ECG performed at 1619 is interpreted by me as revealing normal sinus rhythm at a rate of 96 beats per minute. Right axis deviation. MS interval is 220 ms, QRS duration is 117 ms, QTc is 431 ms.. There were no ST or T wave abnormalities to suggest myocardial ischemia or injury. R wave progression across the precordium was satisfactory. By my interpretation this EKG is non-diagnostic for acute ischemia. Disposition Clinical Impression: COPD (chronic obstructive pulmonary disease), Transient confusion, Tracheobronchitis Disposition: HOME SELF-CARE Condition: Good Instructions (If sedation given, give patient instructions): COPD (Chronic Obstructive Pulmonary Disease) (ED), Acute Bronchitis (ED) Prescriptions: predniSONE [Deltasone] 40 mg PO DAILY 5 Days #10 tab Azithromycin [Zithromax] 250 mg PO DAILY 4 Days #4 tab Is patient prescribed a controlled substance at d/c from ED?: No Referrals: None,Stated [REFERRING] - 1-2 days Forms: Area PCPs Time of Disposition: 18:28
[2024-12-21 16:42] LABS: ALT 15 U/L (4-34); AST 22 U/L (14-36); Acetaminophen <10.0 ug/mL; African American GFR (CKD) >90 (>60 ml/min/1.73 sqM); Albumin 4.5 g/dL (3.5-5.0); Alkaline Phosphatase 86 U/L (38-126); Anion Gap 9 mmol/L; Blood Urea Nitrogen 6 mg/dL (7-17); Calcium 9.8 mg/dL (8.4-10.2); Carbon Dioxide 28 mmol/L (22-30); Chloride 102 mmol/L (98-107); Glucose 125 mg/dL (74-99); Non-African American GFR(CKD) >90 (>60 ml/min/1.73 sqM); Potassium 4.4 mmol/L (3.5-5.1); Salicylate <1.0 mg/dL; Sodium 139 mmol/L (137-145); Total Protein 7.0 g/dL (6.3-8.2)
[2024-12-21 16:46] LABS: INR 0.9 (<1.2); Partial Thromboplastin Time 23.9 sec (22.0-30.0); Prothrombin Time 10.3 sec (10.0-12.5)
[2024-12-21] MEDS: methylPREDNISolone SOD SUCCI 125 MG/2 ML VIAL IV STA (16:51)
--- NOTE | 2024-12-21 17:00 | XR ---
EXAMINATION TYPE: XR chest 2V DATE OF EXAM: 12/21/2024 4:49 PM COMPARISON: 10/25/2024 CLINICAL INDICATION: Female, 59 years old with history of altered mental status: Shortness of breath TECHNIQUE: XR chest 2V views of the chest are obtained. FINDINGS: Scattered senescent parenchymal changes noted. Hyperinflation compatible with COPD. No evidence for infiltrate. No evidence for atelectasis. Heart size is stable. Mediastinal structures are stable and grossly unremarkable. No evidence for hilar prominence. Degenerative changes dorsal spine. IMPRESSION: 1. No evidence for acute pulmonary disease. [facility], , 12/21/2024 4:58 PM
[2024-12-21 17:03] LABS: RSV Not Detected (Not Detectd)
[2024-12-21 17:10] LABS: Bilirubin,Urine Negative (Negative); Blood,Urine Negative (Negative); Color,Urine Colorless; Glucose,Urine (UA) 3+ (Negative); Ketones,Urine Negative (Negative); Leukocyte Esterase,Urine Negative (Negative); Nitrite,Urine Negative (Negative); PH, Urine 7.0 (5.0-8.0); Protein,Urine Negative (Negative); Specific Gravity,Urine 1.003 (1.001-1.035); Urobilinogen,Urine <2.0 mg/dL (<2.0)
[2024-12-21] MEDS: IPRATROPIUM-ALBUTEROL 3 ML NEB INHALATION STA (17:11)
[2024-12-21 17:21] LABS: Barbiturate Screen,Urine Not Detected (NotDetected); Benzodiazepines Screen,Urine Not Detected (NotDetected); Opiate Screen,Urine Not Detected (NotDetected); Oxycodone Screen, Urine Not Detected (NotDetected); Phencyclidine Screen,Urine Not Detected (NotDetected); Tricyclic Antidepressant,Urine Not Detected (NotDetected); Urn Cannabinoid Scrn Not Detected (NotDetected)
--- NOTE | 2024-12-21 18:01 | CT ---
EXAMINATION TYPE: CT brain wo con DATE OF EXAM: 12/21/2024 COMPARISON: CLINICAL INDICATION: Female, 59 years old with history of Altered mental status; PHH, confused TECHNIQUE: CT scan of the head is performed without contrast. CT DLP: 1186.[address] CTDI: mGy Automated exposure control for dose reduction was used. FINDINGS: There is no acute intracranial hemorrhage or midline shift identified. There is diffuse v entricular and sulcal prominence consistent with diffuse age-related cerebral atrophy. There is low- attenuation in the periventricular white matter consistent with chronic small vessel ischemic change. The globes are intact and the visualized sinuses are clear. IMPRESSION: No acute intracranial hemorrhage or midline shift. There is diffuse age-related cerebra l atrophy and chronic small vessel ischemic change noted. [facility], , 12/21/2024 5:59 PM
[2024-12-21 19:00] VITALS: BP 148/87; PULSE 101; RESP 16; TEMP 98.2
[2024-12-22 09:19] LABS: T Helper Cell (CD4) 1236.0 cell/ul (443-1471); T Helper Cell (CD4) % 61.0 % (35-66); T Suppressor Cell (CD8) 597.0 cell/ul (190-832); T Suppressor Cell (CD8) % 29.0 % (9-37); T4/T8 Ratio (CD4:CD8) 2.1 (1.0-3.7)
== END 2024-12-21 19:00 | disposition home or self-care (01) ==
LOC: EC 14:42
DX: J44.9 Chronic obstructive pulmonary disease, unspecified (principal); R41.0 Disorientation, unspecified; J40 Bronchitis, not specified as acute or chronic; I45.10 Unspecified right bundle-branch block; F17.200 Nicotine dependence, unspecified, uncomplicated; Z88.8 Allergy status to other drugs, medicaments and biological substances
CPT/HCPCS: 36415; 94640; 93005; 80053; 86360; 82140; 82803; 83605; 85025; 85610; 85730; 81003; 80306; 80143; 80320; 87636; 80179; 71046; 70450; 99285; 96374; 96361; J2919

== ENCOUNTER 2025-01-19 01:35 | Emergency (ER) | payer MEDICARE, OTHER ==
[2025-01-19 01:40] VITALS: RESP 18
[2025-01-19 02:05] LABS: Basophils # (A) 0.05 10*3/uL (0.00-0.10); Basophils % (A) 0.5 %; Eosinophils # (A) 0.14 10*3/uL (0.04-0.35); Eosinophils % (A) 1.5 %; HCT 41.7 % (37.2-46.3); HGB 14.1 g/dL (12.0-15.0); Lymphocytes # (A) 2.59 10*3/uL (0.90-5.00); Lymphocytes % (A) 27.1 %; MCH 29.8 pg (27.0-32.0); MCHC 33.8 g/dL (32.0-37.0); MCV 88.2 fL (80.0-97.0); Monocytes # (A) 0.53 10*3/uL (0.20-1.00); Monocytes % (A) 5.6 %; Neutrophils # (A) 6.10 10*3/uL (1.80-7.70); Neutrophils % (A) 63.9 %; Platelet Count 267 10*3/uL (140-440); RBC 4.73 10*6/uL (4.10-5.20); RDW 13.2 % (11.5-14.5); WBC 9.54 10*3/uL (4.50-10.00)
[2025-01-19 02:25] LABS: ALT 14 U/L (4-34); AST 19 U/L (14-36); African American GFR (CKD) >90 (>60 ml/min/1.73 sqM); Albumin 4.1 g/dL (3.5-5.0); Alkaline Phosphatase 80 U/L (38-126); Anion Gap 8 mmol/L; Blood Urea Nitrogen 9 mg/dL (7-17); Calcium 9.3 mg/dL (8.4-10.2); Carbon Dioxide 27 mmol/L (22-30); Chloride 98 mmol/L (98-107); Glucose 110 mg/dL (74-99); Lipase 112 U/L (23-300); Magnesium 1.6 mg/dL (1.6-2.3); Non-African American GFR(CKD) >90 (>60 ml/min/1.73 sqM); Potassium 4.5 mmol/L (3.5-5.1); Sodium 133 mmol/L (137-145); Total Protein 6.6 g/dL (6.3-8.2)
--- NOTE | 2025-01-19 02:39 | ED ---
General Adult HPI - General Chief complaint: Chest Pain Stated complaint: Chest Pain Time Seen by Provider: 01/19/25 01:37 Source: patient, RN notes reviewed, old records reviewed Mode of arrival: EMS Limitations: no limitations - History of Present Illness Initial comments: 59-year-old female presenting for evaluation of chest pain. Chest pain is reso lved at the time my evaluation. Patient was transported by paramedics with stable vitals. She was given aspirin and nitroglycerin during transport. Patient denies prior history of CAD. No vomiting. No diaphoresis. - Related Data Home Medications Medication Instructions Recorded Confirmed Acamprosate Calcium [Campral] 333 mg PO TID 04/18/22 09/15/24 Albuterol Sulfate [Albuterol 2 puff INHALATION RT-Q4H PRN 04/18/22 09/15/24 Sulfate Hfa] Canagliflozin [Invokana] 100 mg PO AC-BRKFST 04/18/22 09/15/24 Emtricitabine/Tenofov Alafenam 1 tab PO HS 04/18/22 09/15/24 [Descovy 200-25 mg Tablet] Losartan [Cozaar] 25 mg PO DAILY 04/18/22 09/15/24 Nystatin 100,000 Unit/gm Powd 1 applic TOPICAL BID PRN 04/18/22 09/15/24 [Mycostatin Powder] Ubrogepant [Ubrelvy] 100 mg PO BID PRN 04/18/22 09/15/24 lamoTRIgine [lamoTRIgine ER] 300 mg PO HS 04/18/22 09/15/24 metFORMIN HCL ER [Glucophage XR] 1,000 mg PO DAILY 04/18/22 09/15/24 sitaGLIPtin [Januvia] 100 mg PO DAILY 04/18/22 09/15/24 Nitroglycerin Sl Tabs [Nitrostat] 0.4 mg SL Q5M PRN 04/24/22 09/15/24 Raltegravir Potassium [Isentress] 400 mg PO HS 08/24/24 09/15/24 Ziprasidone [Geodon] 80 mg PO BID 08/24/24 09/15/24 clomiPRAMINE HCL [Anafranil] 75 mg PO DAILY 08/24/24 09/15/24 clomiPRAMINE HCL [Anafranil] 150 mg PO HS 08/24/24 09/15/24 busPIRone HCL [Buspar] 30 mg PO BID 09/15/24 09/15/24 Previous Rx's Medication Instructions Recorded Diltiazem Cd [Cardizem CD] 180 mg PO DAILY #30 cap 04/19/22 Famotidine [Pepcid] 20 mg PO BID #60 tablet 08/25/24 Azithromycin [Zithromax] 250 mg PO DAILY 4 Days #4 tab 12/21/24 predniSONE [Deltasone] 40 mg PO DAILY 5 Days #10 tab 12/21/24 Allergies Allergy/AdvReac Type Severity Reaction Status Date / Time propranolol [From Inderal LA] Allergy Anaphylaxis Verified 01/19/25 01:40 Review of Systems ROS Statement: Those systems with pertinent positive or pertinent negative responses have been documented in the HPI. ROS Other: All systems not noted in ROS Statement are negative. Past Medical History Past Medical History: Chest Pain / Angina, COPD, Diabetes Mellitus, Hypertension Additional Past Medical History / Comment(s): HEP B, HIV,COVID History of Any Multi-Drug Resistant Organisms: None Reported Past Surgical History: Hernia Repair Past Anesthesia/Blood Transfusion Reactions: No Reported Reaction Past Psychological History: Bipolar Smoking Status: Current every day smoker Past Alcohol Use History: Abuse, Daily Past Drug Use History: Marijuana General Exam Limitations: no limitations General appearance: alert, in no apparent distress Head exam: Present: atraumatic, normocephalic Eye exam: Present: normal appearance, PERRL ENT exam: Present: normal exam Neck exam: Present: normal inspection. Absent: tenderness, meningismus Respiratory exam: Present: normal lung sounds bilaterally. Absent: respiratory distress, wheezes Cardiovascular Exam: Present: regular rate, normal rhythm GI/Abdominal exam: Present: soft. Absent: distended, tenderness Extremities exam: Present: normal inspection, normal capillary refill. Absent: pedal edema Neurological exam: Present: alert, oriented X3. Absent: CN II-XII intact, motor sensory deficit Psychiatric exam: Present: normal affect, normal mood Skin exam: Present: warm, dry, intact. Absent: cyanosis, diaphoretic Course Vital Signs 01/19/25 01/19/25 01/19/25 01:37 02:40 04:23 Temperature 98.4 F 97.8 F Pulse Rate 92 94 92 Respiratory 18 18 18 Rate Blood Pressure 151/77 160/86 127/67 O2 Sat by Pulse 96 96 95 Oximetry Medical Decision Making - Medical Decision Making Was pt. sent in by a medical professional or institution (AKSHAT Hardy, HEALTH PLAN SPECIALIST, urgent care, hospital, or assisted...) When possible be specific @ -No Did you speak to anyone other than the patient for history (EMS, parent, family, police, friend...)? What history was obtained from this source @ -No Did you review nursing and triage notes (agree or disagree)? Why? @ -I reviewed and agree with nursing and triage notes Were old charts reviewed (outside hosp., previous admission, EMS record, old EKG, old radiological studies, urgent care reports/EKG's, assisted records)? Report findings @ -No old charts were reviewed Differential Chest Pain: Stable Angina, Unstable Angina, STEMI, NSTEMI Aortic Dissection, Pneumothorax, Musculoskeletal, Esophageal Spasm GERD, Cholecystitis, Pancreatitis, Zoster, this is not meant to be an all-inclusive list. EKG interpreted by me (3pts min.). @ -Sinus rhythm with first-degree AV block rate of 87, KS interval 211, QRS duration 116, QTc 438 incomplete right bundle branch block no ST segment elevation X-rays interpreted by me (1pt min.). @ -[Chest x-ray negative for acute cardiopulmonary findings. CT interpreted by me (1pt min.). @ -None done U/S interpreted by me (1pt. min.). @ -None done What testing was considered but not performed or refused? (CT, X-rays, U/S, labs)? Why? @ -None What meds were considered but not given or refused? Why? @ -None Did you discuss the management of the patient with other professionals (professionals i.e. AKSHAT Hardy, HEALTH PLAN SPECIALIST, lab, RT, psych nurse, manager social services, recorder of deeds, teacher, corporate compliance officer, case coordinator)? Give summary @ -No Was smoking cessation discussed for >3mins.? @ -No Was critical care preformed (if so, how long)? @ -No Were there social determinants of health that impacted care today? How? (Homelessness, low income, unemployed, alcoholism, drug addiction, transportation, low edu. Level, literacy, decrease access to med. care, shelter, rehab)? @ -No Was there de-escalation of care discussed even if they declined (Discuss DNR or withdrawal of care, Hospice)? DNR status @ -No What co-morbidities impacted this encounter? (DM, HTN, Smoking, COPD, CAD, Cancer, CVA, ARF, Chemo, Hep., AIDS, mental health diagnosis, sleep apnea, morbid obesity)? @ -None Was patient admitted / discharged? Hospital course, mention meds given and route, prescriptions, significant lab abnormalities, going to OR and other pertinent info. @59-year-old female with an episode of chest pain. Pain was resolved at the time my evaluation. No prior history of cardiac disease. EKG is negative for ST segment elevation. Patient's chest x-ray is clear. She has normal CBC, normal CMP, negative initial troponin. I did order a 3-hour troponin on this patient which is again negative. I reevaluated the patient she is resting comfortably and is eager for discharge. She does not want any further testing. She states she has no further pain and would like to go home. Undiagnosed new problem with uncertain prognosis? @ -No Drug Therapy requiring intensive monitoring for toxicity (Heparin, Nitro, Insulin, Cardizem)? @ -No Were any procedures done? @ -No Diagnosis/symptom? @Chest pain Acute, or Chronic, or Acute on Chronic? @Acute Uncomplicated (without systemic symptoms) or Complicated (systemic symptoms)? @ -Default Side effects of treatment? @ -No Exacerbation, Progression, or Severe Exacerbation? @ -No Poses a threat to life or bodily function? How? (Chest pain, [place], [place], pneumonia, PE, COPD, DKA, ARF, appy, cholecystitis, CVA, Diverticulitis, Homicidal, Suicidal, threat to staff... and all critical care pts) @ -Low risk at this time - Lab Data Result diagrams: 01/19/25 01:50 01/19/25 01:50 Lab Results 01/19/25 01/19/25 01/19/25 Range/Units 01:50 01:50 01:50 WBC 9.54 (4.50-10.00) 10*3/uL RBC 4.73 (4.10-5.20) 10*6/uL Hgb 14.1 (12.0-15.0) g/dL Hct 41.7 (37.2-46.3) % MCV 88.2 (80.0-97.0) fL MCH 29.8 (27.0-32.0) pg MCHC 33.8 (32.0-37.0) g/dL Plt Count 267 (140-440) 10*3/uL MPV 9.3 L (9.5-12.2) fL Immature Gran % (Auto) 1.4 % Neutrophils % 63.9 % Lymphocytes % 27.1 % Monocytes % 5.6 % Eosinophils % 1.5 % Basophils % 0.5 % Immature Gran # 0.13 H (0.00-0.04) 10*3/uL Neutrophils # 6.10 (1.80-7.70) 10*3/uL Lymphocytes # 2.59 (0.90-5.00) 10*3/uL Monocytes # 0.53 (0.20-1.00) 10*3/uL Eosinophils # 0.14 (0.04-0.35) 10*3/uL Basophils # 0.05 (0.00-0.10) 10*3/uL PT 10.5 (10.0-12.5) sec INR 0.9 (<1.2) APTT 25.0 (22.0-30.0) sec Sodium 133 L (137-145) mmol/L Potassium 4.5 (3.5-5.1) mmol/L Chloride 98 (98-107) mmol/L Carbon Dioxide 27 (22-30) mmol/L Anion Gap 8 mmol/L BUN 9 (7-17) mg/dL Creatinine 0.53 (0.52-1.04) mg/dL Est GFR (CKD-EPI)AfAm >90 (>60 ml/min/1.73 sqM) Est GFR (CKD-EPI)NonAf >90 (>60 ml/min/1.73 sqM) Glucose 110 H (74-99) mg/dL Calcium 9.3 (8.4-10.2) mg/dL Magnesium 1.6 (1.6-2.3) mg/dL Total Bilirubin 0.3 (0.2-1.3) mg/dL AST 19 (14-36) U/L ALT 14 (4-34) U/L Alkaline Phosphatase 80 (38-126) U/L Troponin I (0.000-0.034) ng/mL Total Protein 6.6 (6.3-8.2) g/dL Albumin 4.1 (3.5-5.0) g/dL Lipase 112 (23-300) U/L Serum Alcohol <10 mg/dL 01/19/25 01/19/25 Range/Units 01:50 04:30 WBC (4.50-10.00) 10*3/uL RBC (4.10-5.20) 10*6/uL Hgb (12.0-15.0) g/dL Hct (37.2-46.3) % MCV (80.0-97.0) fL MCH (27.0-32.0) pg MCHC (32.0-37.0) g/dL Plt Count (140-440) 10*3/uL MPV (9.5-12.2) fL Immature Gran % (Auto) % Neutrophils % % Lymphocytes % % Monocytes % % Eosinophils % % Basophils % % Immature Gran # (0.00-0.04) 10*3/uL Neutrophils # (1.80-7.70) 10*3/uL Lymphocytes # (0.90-5.00) 10*3/uL Monocytes # (0.20-1.00) 10*3/uL Eosinophils # (0.04-0.35) 10*3/uL Basophils # (0.00-0.10) 10*3/uL PT (10.0-12.5) sec INR (<1.2) APTT (22.0-30.0) sec Sodium (137-145) mmol/L Potassium (3.5-5.1) mmol/L Chloride (98-107) mmol/L Carbon Dioxide (22-30) mmol/L Anion Gap mmol/L BUN (7-17) mg/dL Creatinine (0.52-1.04) mg/dL Est GFR (CKD-EPI)AfAm (>60 ml/min/1.73 sqM) Est GFR (CKD-EPI)NonAf (>60 ml/min/1.73 sqM) Glucose (74-99) mg/dL Calcium (8.4-10.2) mg/dL Magnesium (1.6-2.3) mg/dL Total Bilirubin (0.2-1.3) mg/dL AST (14-36) U/L ALT (4-34) U/L Alkaline Phosphatase (38-126) U/L Troponin I <0.012 <0.012 (0.000-0.034) ng/mL Total Protein (6.3-8.2) g/dL Albumin (3.5-5.0) g/dL Lipase (23-300) U/L Serum Alcohol mg/dL Disposition Clinical Impression: Chest pain Disposition: HOME SELF-CARE Condition: Fair Instructions (If sedation given, give patient instructions): Chest Pain (ED) Is patient prescribed a controlled substance at d/c from ED?: No Referrals: Joanne Aguayo MD [Primary Care Provider] - 1-2 days Time of Disposition: 06:16
[2025-01-19 02:46] LABS: INR 0.9 (<1.2); Partial Thromboplastin Time 25.0 sec (22.0-30.0); Prothrombin Time 10.5 sec (10.0-12.5)
--- NOTE | 2025-01-19 04:07 | XR ---
EXAM: XR Chest, 2 Views CLINICAL HISTORY: ITS.REASON XR Reason: Chest Pain TECHNIQUE: Frontal and lateral views of the chest. COMPARISON: X-ray dated 12/21/2024. FINDINGS: Lungs: Unremarkable. No consolidation. Pleural space: Unremarkable. No pneumothorax. Heart: Unremarkable. No cardiomegaly. Mediastinum: Unremarkable. Normal mediastinal contour. Bones/joints: Degenerative changes are seen within the spine and shoulders. No acute fracture. IMPRESSION: No acute findings in the chest.
[2025-01-19 06:30] VITALS: BP 158/82; PULSE 84; TEMP 98
== END 2025-01-19 06:30 | disposition home or self-care (01) ==
LOC: EC 01:35
DX: R07.9 Chest pain, unspecified (principal); F17.200 Nicotine dependence, unspecified, uncomplicated; Z88.8 Allergy status to other drugs, medicaments and biological substances
CPT/HCPCS: 36415; 71046; 80053; 80320; 83690; 83735; 84484; 85025; 85610; 85730; 93005; 99285